=== PATIENT | female | born 1945 | race Caucasian/White ===

== ENCOUNTER 2017-10-09 13:30 | Outpatient (RCR) | payer MEDICARE, SELFPAY ==
--- NOTE | 2017-07-02 09:56 | HP.PTEVAL_ITS ---
Patient's Visit Information ELIAN ALVARADO is a 71 year old F referred to Physical Therapy by JAZMIN Mike with a diagnosis of Low Back Pain. Date of Evaluation: 07/02/17 Physical Therapist: Kortney Ching - Visit Plan Frequency: 2x /Week Duration: 4 Weeks Plan: Aquatic Therapy- focus on core s/s and LE s/s- GENTLE - Subjective Subjective: Patient reports back surgery Jul 17- had therapy- felt amazing by the end. Feels that she over did it on her HEP (hip abd with band)- this happened in Oct- she has been miserable since. She is in pain management and feels its the SI joint- has had a series of 2 injections- had relief for 11 days with the first shot and no relief from the second shot. Goes back Jul 17 and they will do an injection under the SI joint. quality of life is shit. Has say on ice for the good part of the year. Agg: standing, walking to a certain point, can't walk fast, sitting for to long (more than an hour). Eases : go to bed- laying down but be careful when turning. most comfortable on the left side. Sleep: disturbed but not very often. Pain is located in the left buttocks. Radiates down the leg to the ankle but now it does not radiate secondary to the injection. Describes pain as sharp/shooting. Numbness across the low back. Has a lengthy history of back issues- 2 back surgeries- fusion with rods-Jul 17- done by Dr. Williams Douglas. She has alway been active but not very much anymore due to pain. Wants to get back to all normal stuff. PMHx: 2 knee replacements, shoulder replacement. Meds: all in her chart. Has had recent x-rays from pain management. - Objective Posture: FH, RS, Increased kyphosis. Gait: guarded- slow and decreased trunk movements- decreased stance on left LE. HR/TR: able but required UE A. Balance : unable to SLS without UE A. ROM: lumbar: WNL but guarded, Hip/Knee/Ankle: WNL. Strength: Ankle: 5/5, Knee 5/5, Hip: 4/5 throughout with pain. Palpation : tender along greater troch, piriformis, SI joint line on the left - Goals Goal 1:: Patient will be I with HEP and progression Goal Time Frame: 4-6 Weeks Goal 2:: Patient will demo 4+/5 strength in LE where defcit to ease ADL's. Goal Time Frame: 4-6 Weeks Goal 3:: Patient will ambulate with a normalized gait pattern Goal Time Frame: 4-6 Weeks Goal 4:: Patient will maintain proper posture t/o tx session to demo increase core s/s. Goal Time Frame: 4-6 Weeks - Rehabilitation Potential Physical Therapy Diagnosis: Patient presents with hypomobility- she has decreased strength and endurance leading to increased pain with ADL's. Rehabilitation Potential: Fair - Anticipated Interventions Patient/Client Instruction: Educate patient on: Benefits of Fitness Program For the Purpose of:: To improve ability to perform ADL's Therapeutic Exercise to Include: Strength training, Endurance training, Balance training, Agility training, Body mechanics, Postural training, Flexibilty training, Gait and locomotor training, In an aquatic setting, Dynamic Lumbar Stabilization, Scapular Strength/Stabilization For the Purpose of:: To improve muscle performance and motor function Thank you for the opportunity to evaluate your patient. For Medicare and Medicare HMO plans, please review the plan of care and approve it. It will need to be FAXED BACK to us at [phone] for Medicare purposes. Please let me know if there are questions or concerns regarding this plan of care. Physician Signature: Date:
--- NOTE | 2017-07-31 14:45 | HP.PTREVAL_ITS ---
Margarita Strickland, MALOU-C, It has been my pleasure to treat ELIAN ALVARADO over the last 8 visits for Low Back Pain. Please see the progress note below for an update on the physical therapy plan of care! Subjective: Two weeks ago she had a sciatic nerve injection and feels a lot better. Every once in awhile she gets a zing in her low back. Sleeping better and moving better. Has been really concenrating on posture and core. Feels that she is 50% on better on her low back and 100% better on her hip. No hip pain. Worst: 5/10 when working in the kitchen. Objective/Function: Posture: improved- correct but starts to diminish as she tires. Gait: slightly antalgic due to mild forward head. ROM: WFL. Strength: Ankle: 5/5, Knee: 4+/5, Hip: 4/5 throughout, Core: fair Plan Plan: Cont with POC 2x a week for 4 weeks with land progression Goals Goal 1:: Patient will be I with HEP and progression Goal Time Frame: 4-6 Weeks Goal Progress: Progressing Goal 2:: Patient will demo 4+/5 strength in LE where defcit to ease ADL's. Goal Time Frame: 4-6 Weeks Goal Progress: Progressing Goal 3:: Patient will ambulate with a normalized gait pattern Goal Time Frame: 4-6 Weeks Goal Progress: Progressing Goal 4:: Patient will maintain proper posture t/o tx session to demo increase core s/s. Goal Time Frame: 4-6 Weeks Goal Progress: Progressing Anticipated Interventions Patient/Client Instruction: Educate patient on: Benefits of Fitness Program For the Purpose of:: To improve ability to perform ADL's Therapeutic Exercise to Include: Strength training, Endurance training, Balance training, Agility training, Body mechanics, Postural training, Flexibilty training, Gait and locomotor training, In an aquatic setting, Dynamic Lumbar Stabilization, Scapular Strength/Stabilization For the Purpose of:: To improve muscle performance and motor function Please do not hesitate to contact me at [phone] by phone or Fax: if you have questions or concerns regarding this new plan of care! Sincerely, Kortney Ching
--- NOTE | 2017-09-11 14:28 | HP.PTREVAL_ITS ---
Margarita Strickland, MALOU-C, It has been my pleasure to treat ELIAN ALVARADO over the last 16 visits for Low Back Pain. Please see the progress note below for an update on the physical therapy plan of care! Subjective: Patient reports that she is doing really good. Her low back is better because she has slowed down and is using her core more. Feels like she would like to do a few more visits since she took a dive off the stairs. Objective/Function: Posture: FH, RS. Gait: no deviation noted. Stairs: asc/ desc 8 recip with 1 HR- poor control with descent. Balance: unable to SLS but can weight shift. ROM: WFL. Strength: 4+/5 throughout LEs Core: fair Plan Plan: Continue 2x a week for 4 weeks Goals Goal 1:: Patient will be I with HEP and progression Goal Time Frame: 4-6 Weeks Goal Progress: Progressing Goal 2:: Patient will demo 4+/5 strength in LE where defcit to ease ADL's. Goal Time Frame: 4-6 Weeks Goal Progress: Progressing Goal 3:: Patient will ambulate with a normalized gait pattern Goal Time Frame: 4-6 Weeks Goal Progress: Progressing Goal 4:: Patient will maintain proper posture t/o tx session to demo increase core s/s. Goal Time Frame: 4-6 Weeks Goal Progress: Progressing Anticipated Interventions Patient/Client Instruction: Educate patient on: Benefits of Fitness Program For the Purpose of:: To improve ability to perform ADL's Therapeutic Exercise to Include: Strength training, Endurance training, Balance training, Agility training, Body mechanics, Postural training, Flexibilty training, Gait and locomotor training, In an aquatic setting, Dynamic Lumbar Stabilization, Scapular Strength/Stabilization For the Purpose of:: To improve muscle performance and motor function Please do not hesitate to contact me at [phone] by phone or Fax: if you have questions or concerns regarding this new plan of care! Sincerely, Kortney Ching
--- NOTE | 2017-10-09 13:53 | HP.PTDCSUM_ITS ---
HP - PT D/C Summary It has been my pleasure to treat ELIAN ALVARADO under orders from JAZMIN Mike, for the diagnosis of Low Back Pain for a total of 24 visit(s). Discharge Date: Please see the following information for a summary of their discharge status. - Subjective Subjective: Patient reports that she is doing pretty good. She has a twinge every now and then but its much better. Is ready to be I with HEP - Pain LBP Pain Intensity (Out of 10): 0 - Overall Improvement % Improvement: 50 - Objective Objective/Function: Posture: good throughout. Gait: no deviation noted. Stairs : asc/desc 8 recip. Strength: 4+/5 throughout - Goals Goal 1:: Patient will be I with HEP and progression Goal Progress: Goal Met Goal 2:: Patient will demo 4+/5 strength in LE where defcit to ease ADL's. Goal Progress: Goal Met Goal 3:: Patient will ambulate with a normalized gait pattern Goal Progress: Goal Met Goal 4:: Patient will maintain proper posture t/o tx session to demo increase core s/s. Goal Progress: Goal Met - Plan Plan: Discharge to I HEP - D/C Information If there are questions or concerns regarding this patient's physical therapy, please feel free to call me at [phone]. Thank you for the referral of this patient. Sincerely, Kortney Ching
== END 2017-10-09 14:07 | disposition home or self-care (01) ==
LOC: PT 13:30
PROVIDERS: Family Provider Student in an Organized Health Care Education/Training Program; PCP Student in an Organized Health Care Education/Training Program; Visit Provider Nurse Practitioner Family
DX: M53.3 Sacrococcygeal disorders, not elsewhere classified (principal); M25.9 Joint disorder, unspecified; M48.061 Spinal stenosis, lumbar region without neurogenic claudication; M51.36 Other intervertebral disc degeneration, lumbar region; M54.16 Radiculopathy, lumbar region
CPT/HCPCS: 97110; 97113; 97162; 97530; G8978; G8979

== ENCOUNTER 2018-03-10 11:43 | Observation (INO) | payer MEDICARE, SELFPAY ==
[2018-03-10] VITALS (9 sets, daily range): BP systolic 116–160; BP diastolic 76–98; PULSE 72–93; RESP 13–19; TEMP 36.6–37.3; O2SAT 95–99; BMI 22.8; BMI 24.3
--- NOTE | 2018-03-10 12:02 | EKG12_ITS ---
Test Reason : SOB Blood Pressure : / mmHG Vent. Rate : 079 BPM Atrial Rate : 079 BPM P-R Int : 138 ms QRS Dur : 078 ms QT Int : 374 ms P-R-T Axes : 056 009 057 degrees QTc Int : 428 ms Sinus rhythm with Premature supraventricular complexes Otherwise normal ECG Confirmed by DAKOTAH CARBAJAL, KI ([id number]), industrial editor JOSÉ MANUEL JOHNSON ([id number]) on 03/13/2018 2:50:29 PM Referred By: MO Confirmed By:KI CLAIRE MD
--- NOTE | 2018-03-10 12:02 | RAD_ITS ---
STUDY: X-RAY CHEST REASON FOR EXAM: Female, 72 years old. One-month history of shortness of breath and fatigue. TECHNIQUE: Single AP portable view of the chest. COMPARISON: None. FINDINGS: EKG electrodes are seen. Hyperinflation. The lungs are clear. There is no demonstrated pleural abnormality. Normal size heart. Normal mediastinum and constantine. Normal visualized pulmonary arteries. There is atherosclerotic tortuosity of the aortic arch and descending thoracic aorta. Prior fusion in the lower thoracic upper lumbar spine. Healed bilateral rib fractures. 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 There is no demonstrated abnormality of the visualized soft tissue structures of the upper abdomen. RAD/Chest 1 View (Portable) IMPRESSION: Hyperinflation. The lungs are clear. Electronically Signed: Michael Santiago MD at 12:41 EDT Tel [phone], Service support ,
[2018-03-10 12:26] LABS: Absolute Lymphocyte Count 1.26 X10^3/ul (0.83-4.51); Absolute Neutrophil Count 4.9 X10^3/uL (2.0-7.7); Basophil# 0.02 X10^3/uL; Basophil% 0.3 % (0-1); Eosinophil# 0.13 X10^3/uL; Eosinophils% 1.8 % (0-5); Hematocrit 43.6 % (37-47); Hemoglobin 14.4 g/dl (12.0-15.0); Lymphocyte # 1.26 X10^3/ul (4.0); Lymphocyte % 17.9 % (19-41); Mean Corpuscular Hgb 32.4 pg (27.0-32.0); Mean Corpuscular Volume 98.2 fL (81-99); Mean Platelet Vol. 11.3 fl (6.2-12.0); Monocyte# 0.76 X10^3/uL; Monocyte% 10.8 % (0-10); Neutrophil # 4.87 X10^3/uL (2.7-7.7); Neutrophil % 69.2 % (47-70); Platelet Count 238 K/mm3 (150-450); RBC Distribution Width CV 14.4 % (11.6-14.6); RBC Distribution Width SD 52.1 fl (35.1-43.9); Red Blood Count 4.44 M/mm3 (4.2-5.4)
[2018-03-10 12:27] LABS: POSITIVE COUNT NO; POSITIVE DIFFERENTIAL NO; POSITIVE MORPHOLOGY NO
[2018-03-10 12:29] LABS: Anion Gap 7 (5-15); BUN 22 mg/dL (7-18); BUN/Creat Ratio 21.6 RATIO (10-20); Calcium,Total 9.5 mg/dL (8.5-10.1); Chloride 109 mmol/L (98-107); Creatinine, Serum 1.02 mg/dL (0.55-1.02); EST Glomerular Filtration Rate 56 mL/min (>60); Est Glom Filt Rate - Afr Amer 68 mL/min (>60); Estimated Creatinine Clearance 38.27 ml/min; Glucose 110 mg/dL (74-106); Potassium 4.3 mmol/L (3.5-5.1); Sodium Level 140 mmol/L (136-145)
[2018-03-10 12:30] LABS: D-Dimer Quantitative (DVT/PE) 1.34 FEU/ug/m (0.27-0.49)
--- NOTE | 2018-03-10 12:39 | CT_ITS ---
STUDY: CTA CHEST REASON FOR EXAM: Female, 72 years old. One month history of increasing shortness of breath and fatigue. RADIATION DOSAGE (If Supplied By Facility): CTDIvol = ( 6.71 ) mGy, DLP = ( 173.30 ) mGycm TECHNIQUE: The examination was performed with the intravenous administration of 75CC ml of Isovue 370 contrast material. Post-processing of the angiographic images was performed, with multiplanar reformation and 3D reconstruction. Individualized dose optimization techniques were used for this CT. COMPARISON: None. FINDINGS: Normal enhancement of the main pulmonary artery and right and left pulmonary arteries. Normal enhancement of the bilateral peripheral pulmonary arteries. There is no demonstrated pulmonary embolism. There is atherosclerotic calcification of the aortic arch with tortuosity. There is no demonstrated aortic dissection. Normal heart and pericardium. Normal mediastinum. Normal hilar regions. Normal visualized trachea and bronchi. Hyperinflation. Calcified granuloma in the posteromedial aspect of the right upper lobe. Focal pleural thickening along the lateral aspect of the right upper lobe. Normal pleura. Normal chest wall structures. There are degenerative changes of thoracic spine. Normal visualized upper abdomen. CT/CTA Chest W/WO Contrast IMPRESSION: No acute abnormality is seen. Electronically Signed: Michael Santiago MD at 13:13 EDT Tel [phone], Service support ,
[2018-03-10] MEDS: 0.9% Normal Saline 1,000 ML 150 ML IV (12:44)
[2018-03-10 12:49] LABS: BNP,B-Type NATRIURETIC PEPTIDE 74.6 pg/mL (0-100)
--- NOTE | 2018-03-10 13:24 | ED.VISSUMM ---
- ER Visit Summary Date of Service: 03/10/18 Chief Complaint: [Shortness of breath] History of Present Illness: The patient is a 72 F [presents to the emergency department with complaint of shortness of breath over the last month. Patient has had a mild cough with occasional phlegm production. Patient complains of a lot of fatigue. Patient complains of exertional dyspnea. Patient denies any chest pain. Patient did travel recently to [place] last week but she had symptoms prior to that. Patient denies any fevers. Patient denies urinary symptoms.] Physical Examination: [HEENT-PERRLA, EOMI. Cranial nerves II through XII grossly intact. TMs clear. Mucous membranes moist. No adenopathy. Cardiovascular-regular rate and rhythm without murmur or ectopy Lungs-clear to auscultation, chest wall stable without crepitus or subcu emphysema Abdomen-normoactive bowel sounds, soft, nontender, no rebound or rigidity, no peritoneal signs. Extremities-intact ?4, normal range of motion, normal pulses, atraumatic] Test Results: [EKG obtained on arrival shows sinus rhythm with a ventricular rate of 79 bpm with occasional PACs. CBC with differential was normal. Chemistries unremarkable. Troponin was less than 0.015. BNP was normal at 74. D-dimer was 1.34. Chest x-ray showed some hyperinflation otherwise nothing acute. CT of the chest showed no evidence of PE or dissection. Emergency Department Course and Treatment: [Patient was given aspirin] Treatment Plan: [Admit for further workup and evaluation of her exertional dyspnea] Disposition: [Admit] Impression: [Exertional dyspnea-rule out acute coronary syndrome] This note was generated with fflick dictation software. It may contain incorrect words, spelling, and punctuation that were not noted in review of the chart prior to signing ED Disposition - Plan for ED Patient: Chief Complaint: Shortness of Breath Referrals: Jhonny Russo DO [Primary Care Provider] -
[2018-03-10] MEDS: Aspirin 81 MG TAB.CHEW 324 MG PO (13:27)
--- NOTE | 2018-03-10 14:35 | HP.PCM_ITS ---
Problem List (1) Dyspnea Status: Acute (2) Depression Status: Chronic (3) Arthritis Status: Chronic (4) GERD (gastroesophageal reflux disease) Status: Chronic History of Present Illness Date of Admission: 03/10/18 Chief Complaint: dyspnea The patient is a 72 year old F with a hx of arthritis, depression, and GERD, who presents to the hospital with dyspnea that has been present and worsening for about 1 month. She first noticed this with activity only particularly noting that stairs were difficult. Today she presented because it is now present at rest. She has not had any chest pain or heaviness, but has noticed her acid reflux has been more frequent this past week with increased burning, but is not associated with eating. No N/V. No palpitations, dizziness, LH, leg edema. In the ER her workup has been unremarkable with negative troponin, negative BNP, unremarkable BMP and CBC, negative CXR, EKG with occasional PACs. She did have an elevated D dimer but CTA chest was negative. BP is mildly elevated at 160/98. [] Past Medical History Past Medical History (Chronic Problems): Chronic Problems (Last Reviewed 02/07/18 @ 15:15 by Stephanie Evangelista) Depression (Chronic) Arthritis (Chronic) GERD (gastroesophageal reflux disease) (Chronic) Allergies codeine Allergy (Verified 03/10/18 11:44) Swelling Home Medications: Ambulatory Orders Medication Instructions Recorded Calcium (Elemental) [Os-Cornel 500] 500 mg PO BIDCM 12/28/13 Nabumetone [Relafen] 750 mg PO BID 12/28/13 Omeprazole [Prilosec] 20 mg PO QHS 12/28/13 buPROPion SR [Wellbutrin Sr] 150 mg PO BID 12/28/13 traZODone [Desyrel] 50 mg PO QHS 12/28/13 Acetaminophen [Tylenol Extra 1,000 mg PO PRN PRN 03/10/18 Strength] Alendronate Sodium [Alendronate 70 mg PO QWEEK 03/10/18 Sodium] Sertraline HCl [Zoloft] 50 mg PO QHS 03/10/18 busPIRone [Buspar] 15 mg PO BID 03/10/18 Surgical History: Surgical History (Last Reviewed 02/07/18 @ 15:15 by Stephanie Evangelista) Hx of spinal surgery Z98.890 Surgical History: rotator cuff repair, total knee arthroplasty Lives: Spouse/ Significant Other Smoking Status: Never smoker Tobacco Use: Non-smoker Alcohol: None Drugs: None - *Family History Maternal History Items: Stroke Paternal History Items: Heart Disease - [place] at 64 Review of Systems Constitutional: Denies: Chills, Fever, Weight Change HEENT: Denies: Head Aches, Sinus Congestion, Sinus Drainage Cardiovascular: Denies: Chest Pain, Chest Pressure, Chest Tightness, Palpitations Respiratory: Reports: Shortness of Breath, Shortness of breath at rest, Shortness of breath upon exertion. Denies: Cough, Sputum production Gastrointestinal: Reports: - - burning/heartburn. Denies: Abdominal Pain, Nausea, Vomiting Genitourinary: Denies: Dysuria Musculoskeletal: Denies: Joint Pain, Joint Tenderness Skin: Denies: Rash, Wounds Neurological: Denies: Numbness, Tingling, Focal weakness Psychiatric: Denies: Anxiety, Depression, Homicidal Ideations, Suicidal Ideations Hematologic/ Lymphatic: Denies: Easy Bruising, Easy Bleeding VTE Information - Inpt Only VTE Present on Admission: No VTE Mechan Device Prophylaxis: SCD's, None VTE Pharm Prophylaxis ordered?: Yes Patient Problems: Active and Suspected Problems (Last Reviewed 02/07/18 @ 15:15 by Stephanie Evangelista ) Dyspnea (Acute) - Physical Exam General: Alert, Oriented x3, Cooperative HEENT: Atraumatic, PERRLA, EOMI, Normocephalic Neck: Supple, No JVD, Negative Carotid Bruits Lungs: Clear to auscultation, Normal air movement Cardiovascular: Regular rate, No murmurs Abdomen: Bowel Sounds Present, Soft, Non Tender Extremities: No edema, Capillary Refill Less than 3 Seconds, - - negative dax/ rosa isela Skin: No rashes, No breakdown Musculoskeletal: No Tenderness to Palpation of Joints or Extremities Neurological: Cranial nerves II-XII grossly intact Psych/Mental Status: Appropriate, Anxious Vital Signs Temp Pulse Resp BP Pulse Ox 98.4 F 81 15 160/98 H 99 03/10/18 13:36 03/10/18 14:21 03/10/18 14:21 03/10/18 14:21 03/10/18 14:21 Assessment/Plan All Active Problems (Last Reviewed 02/07/18 @ 15:15 by Stephanie Evangelista) Dyspnea (Acute) Irritant contact dermatitis due to plants, except food (Acute) 1. Dyspnea on exertion - worsening x 1 month. Concern for cardiac etiology. Cycle troponin, repeat EKG in AM, dobutamine stress in AM. Monitor BP and start agent if needed. Continue aspirin. EKG, CTA chest, CXR negative. Tropx1 neg. BNP neg. 2. Arthritis - hold nsaids. 3. GERD - continue PPI 4. Anxiety/Depression - continue home meds. DVT ppx: lovenox This patient was seen by Finn Zepeda PA-C under the supervision of Doctor Luna.
[2018-03-10] MEDS: Calcium (Elemental) 500 MG Tablet PO (16:45)
[2018-03-10] MEDS: Pantoprazole Sodium 20 MG Tablet PO (21:42)
[2018-03-10] MEDS: Sertraline 50 MG Tablet PO (21:42)
[2018-03-10] MEDS: busPIRone 15 MG TABLET PO (21:42)
[2018-03-10] MEDS: traZODone 50 MG Tablet PO (21:42)
[2018-03-10] MEDS: buPROPion (SR) 150 MG Tablet.SA PO (21:42)
[2018-03-11 03:29] VITALS: PULSE 69
[2018-03-11 03:44] VITALS: BP 138/66; PULSE 71; RESP 16; TEMP 36.6; O2SAT 98
[2018-03-11] MEDS: Aspirin 81 MG TAB.CHEW PO (05:37)
[2018-03-11 05:43] LABS: White Blood Count 5.2 K/mm3 (4.4-11.0)
[2018-03-11 05:44] LABS: Hematocrit 42.2 % (37-47); Hemoglobin 13.9 g/dl (12.0-15.0); Mean Corp Hgb Conc 32.9 g/gl (32-36); Mean Corpuscular Hgb 32.5 pg (27.0-32.0); Mean Corpuscular Volume 98.6 fL (81-99); Mean Platelet Vol. 10.9 fl (6.2-12.0); Platelet Count 204 K/mm3 (150-450); RBC Distribution Width CV 14.4 % (11.6-14.6); RBC Distribution Width SD 52.6 fl (35.1-43.9); Red Blood Count 4.28 M/mm3 (4.2-5.4); Scan Indicated on CBC? Y/N NO
[2018-03-11 05:54] LABS: Anion Gap 6 (5-15); BUN 21 mg/dL (7-18); BUN/Creat Ratio 22.8 RATIO (10-20); Calcium,Total 8.6 mg/dL (8.5-10.1); Chloride 110 mmol/L (98-107); Creatinine, Serum 0.92 mg/dL (0.55-1.02); EST Glomerular Filtration Rate 63 mL/min (>60); Est Glom Filt Rate - Afr Amer 77 mL/min (>60); Estimated Creatinine Clearance 42.43 ml/min; Glucose 98 mg/dL (74-106); Potassium 4.2 mmol/L (3.5-5.1); Sodium Level 143 mmol/L (136-145)
--- NOTE | 2018-03-11 05:55 | EKG12_ITS ---
Test Reason : AM EKG Blood Pressure : / mmHG Vent. Rate : 064 BPM Atrial Rate : 064 BPM P-R Int : 164 ms QRS Dur : 082 ms QT Int : 414 ms P-R-T Axes : 051 019 068 degrees QTc Int : 427 ms Normal sinus rhythm Low voltage QRS Borderline ECG When compared with ECG of 10-MAR-2018 11:51, MANUAL COMPARISON REQUIRED, DATA IS UNCONFIRMED Confirmed by DAKOTAH CARBAJAL, KI ([id number]), photo editor JOSÉ MANUEL JOHNSON ([id number]) on 03/18/2018 1:14:34 PM Referred By: DR SAEED Confirmed By:KI CLAIRE MD
[2018-03-11 07:27] LABS: International Normalized Ratio 1.1; Prothrombin Time (Protime)PT. 13.7 SECONDS (11.7-14.9)
--- NOTE | 2018-03-11 09:25 | STRESSREP_ITS ---
Stress Test Report Date: 03/11/2018 Procedure: Pharmacologic stress nuclear imaging study Indications: Chest pain Consent: Per the patient Procedure: The patient underwent pharmacologic (Regadenoson) evaluation with a peak heart rate of 101 beats per minute (69 predicted maximal heart rate) and a peak blood pressure of 124/78 mmHg. The baseline ECG demonstrated normal sinus rhythm. The peak pharmacologic ECG demonstrated no obvious ECG changes. There were no cardiac dysrhythmias pretest, during pharmacologic infusion, or recovery. There was no complaint of chest discomfort during pharmacologic infusion or recovery. The examination was discontinued secondary to completion of protocol. Impression: 1. Pharmacologic (Regadenoson) evaluation 2. Peak pharmacologic ECG with no obvious ECG changes. 3. There were no cardiac dysrhythmias pretest, during pharmacologic infusion, or recovery 4. Nuclear images pending Myocardial perfusion imaging study: Technique: The patient was injected with 11.2 millicuries of technetium 99m Cardiolite and subsequently rest SPECT Cardiolite nuclear imaging was obtained in the horizontal long, vertical long, and short axis views. The patient underwent pharmacologic (Regadenoson) evaluation with a peak heart rate of 101 beats per minute (69 % percent predicted maximal heart rate) and a peak blood pressure of 124/78 mmHg. The patient was injected with 32.9 millicuries of technetium 99m Cardiolite and subsequently stress SPECT Cardiolite nuclear imaging was obtained in the horizontal long, vertical long, and short axis views. A gated Cardiolite study at peak stress was obtained. Interpretation: Rest and stress SPECT Cardiolite nuclear imaging status post realignment, normalization, and attenuation correction demonstrate relative uniform tracer uptake and myocardial perfusion appearing within normal limits. There is end systolic thickening and brightening. The gated Cardiolite study demonstrates myocardial thickening and inward wall motion. The reported LVEF is 89 %. Impression: 1. Rest and stress SPECT Cardiolite nuclear imaging demonstrate relative uniform tracer uptake and myocardial perfusion appearing within normal limits. 2. The gated Cardiolite study reports an LVEF of 89 %. This note was generated with [employer] software. It may contain incorrect words, spelling, and punctuation that were not noted in checking the note before signing.
[2018-03-11 09:50] VITALS: BP 122/97; PULSE 75; RESP 18; TEMP 36.1; O2SAT 98
[2018-03-11] MEDS: buPROPion (SR) 150 MG Tablet.SA PO (09:51)
[2018-03-11] MEDS: Calcium (Elemental) 500 MG Tablet PO (09:52)
[2018-03-11] MEDS: busPIRone 15 MG TABLET PO (09:52)
[2018-03-11 09:58] VITALS: PULSE 72
[2018-03-11 11:16] VITALS: PULSE 80
--- NOTE | 2018-03-11 11:31 | ECHOD_ITS ---
Reason For Study: exertional SOB Procedure This was a 2D Doppler, Color Flow transthoracic echocardiogram. The study was technically difficult. Due to respiratory interference and coughing. Exam performed portable in patient room. Left Ventricle Normal LV size. Left ventricular systolic function is normal. The estimated ejection fraction is 65 %. Normal diastology for age. No regional wall motion abnormalities noted. Right Ventricle Normal RV size. Normal systolic function. Atria Normal left atrium. Normal right atrium. No doppler evidence for ASD. Mitral Valve There is mild mitral annular calcification. Normal mitral valve. Trivial mitral valve insufficiency. Tricuspid Valve Normal tricuspid valve. Mild tricuspid valve insufficiency. Right ventricular systolic pressure estimated to be 29 mmHg. Aortic Valve Trisinus/trileaflet aortic valve. Normal aortic valve. Mild (1+) aortic valve insufficiency. Pulmonic Valve The pulmonic valve is not well visualized. Great Vessels Normal sized aortic root. Pericardium/Pleural No pericardial effusion. MMode/2D Measurements & Calculations LVIDd: 3.8 cm IVSd: 1.0 cm Ao root diam: 3.3 cm LVIDs: 2.6 cm LVPWd: 1.0 cm LA dimension: 3.9 cm RVDd: 2.1 cm FS: 32.3 % LAV(MOD-bp): 35.1 ml LA A4 area: 13.6 cm2 RA A4 area: 10.0 cm2 LAV(MOD-bp) Indexed: 21.8 ml/m2 LAV(MOD-sp2): 37.8 ml LAV(MOD-sp4): 32.8 ml Doppler Measurements & Calculations MV E max earnest: 73.9 cm/sec Lat Peak E' Earnest: 11.5 cm/sec Med Peak E' Earnest: 8.1 cm/sec MV A max earnest: 87.8 cm/sec E/E' lat: 6.4 E/E' med: 9.2 MV E/A: 0.84 Ao V2 max: 132.2 cm/sec AI max earnest: 312.1 cm/sec LV V1 max: 111.2 cm/sec Ao max P.0 mmHg AI max P.0 mmHg LV V1 max P.9 mmHg AI dec slope: 163.6 cm/sec2 AI P1/2t: 558.6 msec PA V2 max: 71.7 cm/sec TR max earnest: 254.7 cm/sec TR max P.0 mmHg Interpretation Summary The study was technically difficult. Left ventricular systolic function is normal. The estimated ejection fraction is 65 %. There is mild mitral annular calcification. Trivial mitral valve insufficiency. Mild tricuspid valve insufficiency. Mild (1+) aortic valve insufficiency. Right ventricular systolic pressure estimated to be 29 mmHg. Ordering Physician: Shirin Dhaliwal Referring Physician: Jhonny Guaman Performed By: Sonia Malone RDCS, RVT
--- NOTE | 2018-03-11 11:32 | PCM.PN.HOSP ---
Patient Problems: Active and Suspected Problems (Last Reviewed 02/07/18 @ 15:15 by Stephanie Evangelista) Dyspnea (Acute) Subjective: Patient is a 72-year-old female with a history of osteoarthritis, depression and GERD. She was admitted with a complaint of worsening exertional dyspnea for about a months duration. It subsequently became present at rest. She had no associated chest pain or heaviness but noted that her acid reflux had been getting worse. She denied any palpitations, dizziness or edema of the lower extremities. Troponins and BNP were negative and other labs were negative as well. Chest x-ray was negative and EKG showed only periodic PACs. D-dimer was elevated but CT PE done was negative. She was admitted to be worked up for exertional shortness of breath. Patient seen and examined this morning. She went for stress test earlier this morning which was negative. Shortness of breath is currently not present patient has not tried walking around today and so does not know whether it is still present on exertion. She denies any cough or chest pain, any abdominal pain, any orthopnea, any diarrhea vomiting or lower extremity swelling. She denies any history of smoking and hasnt had such shortness of breath in the past before. He of systems otherwise negative. Vitals/I&O's: Vital Signs Temp Pulse Resp BP Pulse Ox 96.9 F L 80 18 122/97 H 98 03/11/18 09:50 03/11/18 11:16 03/11/18 09:50 03/11/18 09:50 03/11/18 09:50 Oxygen Delivery Method Room Air Weight: 132 lb 15.02 oz Body Mass Index (BMI) 24.3 Intake and Output for Last 24 Hours 03/09/18 03/10/18 03/11/18 23:59 23:59 23:59 Intake Total 300 / 300 Balance 300 / 300 General: Alert, Oriented x3, Cooperative, No apparent distress HEENT: Atraumatic, PERRLA, EOMI, Normocephalic Oral: Moist Mucosa Neck: Supple, No JVD, Negative Carotid Bruits Lungs: Clear to auscultation, Normal air movement, No rhonchi, No wheeze, No rales Cardiovascular: Regular rate, Regular Rhythm, Normal S1, Normal S2, No murmurs Abdomen: Bowel Sounds Present, Soft, Non Tender Extremities: No clubbing, No cyanosis, No edema, Capillary Refill Less than 3 Seconds Skin: No rashes, No breakdown Musculoskeletal: No Tenderness to Palpation of Joints or Extremities Lymphatic: No Cervical, Supraclavicular, or Inguinal Adenopathy Neurological: Cranial nerves II-XII grossly intact Psych/Mental Status: Normal Affect, Appropriate, Alert and oriented to time, place, person, mood and affect Laboratory Results 03/10/18 15:10: Troponin I < 0.015 03/10/18 17:20: Troponin I < 0.015 03/11/18 05:00: WBC 5.2, RBC 4.28, Hgb 13.9, Hct 42.2, MCV 98.6, MCH 32.5 H, MCHC 32.9, RDW 14.4, RDW Differential 52.6 H, Plt Count 204, MPV 10.9 03/11/18 05:25: PT 13.7, INR 1.1, APTT 32.0 03/11/18 05:25: Sodium 143, Potassium 4.2, Chloride 110 H, Carbon Dioxide 27.0, Anion Gap 6, BUN 21 H, Creatinine 0.92, Estim Creat Clear Calc 42.43, Est GFR (MDRD) Af Amer 77, Est GFR (MDRD) Non-Af 63, BUN/Creatinine Ratio 22.8 H, Glucose 98, Calcium 8.6 Current Medications Acetaminophen (Tylenol) 650 mg PO Q6H PRN PRN PRN Reason: PAIN Aspirin (Aspirin, Baby) 81 mg PO DAILY@0800 [facility] Last Admin: 03/11/18 05:37 Dose: 81 mg Bupropion HCl (Wellbutrin Sr (150mg Tablets)) 150 mg PO BID [facility] Last Admin: 03/11/18 09:51 Dose: 150 mg Buspirone HCl (Buspar) 15 mg PO BID [facility] Last Admin: 03/11/18 09:52 Dose: 15 mg Calcium Carbonate ([facility]el [facility]) [facility] Last Admin: 03/11/18 09:52 Dose: 500 mg Enoxaparin Sodium (Lovenox) 40 mg SC DAILY@0600 [facility] Last Admin: 03/11/18 07:19 Dose: Not Given Pantoprazole Sodium (Protonix) 20 mg PO QHS [facility] Last Admin: 03/10/18 21:42 Dose: 20 mg Sertraline HCl (Zoloft) 50 mg PO QHS [facility] Last Admin: 03/10/18 21:42 Dose: 50 mg Sodium Chloride () 5 - 30 ml IV UD PRN PRN Reason: SALINE FLUSH Trazodone HCl (Desyrel) 50 mg PO QHS [facility] Last Admin: 03/10/18 21:42 Dose: 50 mg Medical Necessity - Tobacco Use Smoking Status: Never smoker Tobacco Use: Non-smoker Assessment/Plan All Active Problems (Last Reviewed 02/07/18 @ 15:15 by Stephanie Evangelista) Dyspnea (Acute) Irritant contact dermatitis due to plants, except food (Acute) 72-year-old female with a history of arthritis, GERD and depression presenting with a month history of exertional dyspnea which was nos present at rest. 1. Shortness of breath, to rule out cardiac pathology SOB has resolved this morning. Vitals stable. EKG, troponins, BNP were negative. Dobutamine stress test ws negative today will get 2D echo to evaluate- patient subsequently wanted to be discharged home, so will have 2D echo on outpatient basis. to ambulate and assess for dyspnea and assess pulse ox. 2. Osteoarthritis; stable. Due to follow up with her orthopedic surgeon for spine shots. 3.GERD: stable. on PPI 4. Anxiety/depression: on bupriopion. DVT prophylaxis: lovenox Disposition: With ambulation patient's saturation was 98% on room air she did not get short of breath. Echo was ordered and is at 1 PM was yet to be done. However patient wanted to go home. Will discharge patient, to have echo on outpatient basis. This note was generated with [employer] dictation software. It may contain incorrect words, spelling, and punctuation that were not noted in checking the note before signing. Code Visit OBSV E&M: 26608 Subsequent observation care L2
--- NOTE | 2018-03-11 11:38 | PN_ITS ---
Patient Problems: Active and Suspected Problems (Last Reviewed 02/07/18 @ 15:15 by Stephanie Evangelista ) Dyspnea (Acute) Subjective: Patient is a 72-year-old female with a history of osteoarthritis, depression and GERD. She was admitted with a complaint of worsening exertional dyspnea for about a months duration. It subsequently became present at rest. She had no associated chest pain or heaviness but noted that her acid reflux had been getting worse. She denied any palpitations, dizziness or edema of the lower extremities. Troponins and BNP were negative and other labs were negative as well. Chest x-ray was negative and EKG showed only periodic PACs. D-dimer was elevated but CT PE done was negative. She was admitted to be worked up for exertional shortness of breath. Patient seen and examined this morning. She went for stress test earlier this morning which was negative. Shortness of breath is currently not present patient has not tried walking around today and so does not know whether it is still present on exertion. She denies any cough or chest pain, any abdominal pain, any orthopnea, any diarrhea vomiting or lower extremity swelling. She denies any history of smoking and hasnt had such shortness of breath in the past before. He of systems otherwise negative. Vitals/I&O's: Vital Signs Temp Pulse Resp BP Pulse Ox 96.9 F L 80 18 122/97 H 98 03/11/18 09:50 03/11/18 11:16 03/11/18 09:50 03/11/18 09:50 03/11/18 09:50 Oxygen Delivery Method Room Air Weight: 132 lb 15.02 oz Body Mass Index (BMI) 24.3 Intake and Output for Last 24 Hours 03/09/18 03/10/18 03/11/18 23:59 23:59 23:59 Intake Total 300 / 300 Balance 300 / 300 General: Alert, Oriented x3, Cooperative, No apparent distress HEENT: Atraumatic, PERRLA, EOMI, Normocephalic Oral: Moist Mucosa Neck: Supple, No JVD, Negative Carotid Bruits Lungs: Clear to auscultation, Normal air movement, No rhonchi, No wheeze, No rales Cardiovascular: Regular rate, Regular Rhythm, Normal S1, Normal S2, No murmurs Abdomen: Bowel Sounds Present, Soft, Non Tender Extremities: No clubbing, No cyanosis, No edema, Capillary Refill Less than 3 Seconds Skin: No rashes, No breakdown Musculoskeletal: No Tenderness to Palpation of Joints or Extremities Lymphatic: No Cervical, Supraclavicular, or Inguinal Adenopathy Neurological: Cranial nerves II-XII grossly intact Psych/Mental Status: Normal Affect, Appropriate, Alert and oriented to time, place, person, mood and affect Laboratory Results 03/10/18 15:10: Troponin I < 0.015 03/10/18 17:20: Troponin I < 0.015 03/11/18 05:00: WBC 5.2, RBC 4.28, Hgb 13.9, Hct 42.2, MCV 98.6, MCH 32.5 H, MCHC 32.9, RDW 14.4, RDW Differential 52.6 H, Plt Count 204, MPV 10.9 03/11/18 05:25: PT 13.7, INR 1.1, APTT 32.0 03/11/18 05:25: Sodium 143, Potassium 4.2, Chloride 110 H, Carbon Dioxide 27.0, Anion Gap 6, BUN 21 H, Creatinine 0.92, Estim Creat Clear Calc 42.43, Est GFR ( MDRD) Af Amer 77, Est GFR (MDRD) Non-Af 63, BUN/Creatinine Ratio 22.8 H, Glucose 98, Calcium 8.6 Current Medications Acetaminophen (Tylenol) 650 mg PO Q6H PRN PRN PRN Reason: PAIN Aspirin (Aspirin, Baby) 81 mg PO DAILY@0800 [facility] Last Admin: 03/11/18 05:37 Dose: 81 mg Bupropion HCl (Wellbutrin Sr (150mg Tablets)) 150 mg PO BID [facility] Last Admin: 03/11/18 09:51 Dose: 150 mg Buspirone HCl (Buspar) 15 mg PO BID [facility] Last Admin: 03/11/18 09:52 Dose: 15 mg Calcium Carbonate ([facility]Cornel 500) [facility] Last Admin: 03/11/18 09:52 Dose: 500 mg Enoxaparin Sodium (Lovenox) 40 mg SC DAILY@0600 [facility] Last Admin: 03/11/18 07:19 Dose: Not Given Pantoprazole Sodium (Protonix) 20 mg PO QHS [facility] Last Admin: 03/10/18 21:42 Dose: 20 mg Sertraline HCl (Zoloft) 50 mg PO QHS [facility] Last Admin: 03/10/18 21:42 Dose: 50 mg Sodium Chloride () 5 - 30 ml IV UD PRN PRN Reason: SALINE FLUSH Trazodone HCl (Desyrel) 50 mg PO QHS [facility] Last Admin: 03/10/18 21:42 Dose: 50 mg Medical Necessity - Tobacco Use Smoking Status: Never smoker Tobacco Use: Non-smoker Assessment/Plan All Active Problems (Last Reviewed 02/07/18 @ 15:15 by Stephanie Evangelista) Dyspnea (Acute) Irritant contact dermatitis due to plants, except food (Acute) 72-year-old female with a history of arthritis, GERD and depression presenting with a month history of exertional dyspnea which was nos present at rest. 1. Shortness of breath, to rule out cardiac pathology * SOB has resolved this morning. * Vitals stable. * EKG, troponins, BNP were negative. * Dobutamine stress test ws negative today * will get 2D echo to evaluate- patient subsequently wanted to be discharged home, so will have 2D echo on outpatient basis. * to ambulate and assess for dyspnea and assess pulse ox. * 2. Osteoarthritis; stable. Due to follow up with her orthopedic surgeon for spine shots. 3.GERD: stable. on PPI 4. Anxiety/depression: on bupriopion. DVT prophylaxis: lovenox Disposition: With ambulation patient's saturation was 98% on room air she did not get short of breath. Echo was ordered and is at 1 PM was yet to be done. However patient wanted to go home. Will discharge patient, to have echo on outpatient basis. This note was generated with [employer] dictation software. It may contain incorrect words, spelling, and punctuation that were not noted in checking the note before signing. Code Visit OBSV E&M: 12887 Subsequent observation care L2
[2018-03-11 11:44] VITALS: O2SAT 98
--- NOTE | 2018-03-11 13:04 | PCM.DC ---
- Discharge Diagnoses Current Active Problems: Current Active and Chronic Problems (Last Reviewed 02/07/18 @ 15:15 by Stephanie Evangelista) Dyspnea (Acute) Depression (Chronic) Arthritis (Chronic) GERD (gastroesophageal reflux disease) (Chronic) You will use the following diet at home:: Cardiac Your food should be the consistency of: Regular Your liquids should be the consistency of: Regular/Thin Discharge Activity: Return to Normal Activity May resume sexual activity in: No Restrictions Call your doctor if you observe: Shortness of breath, Swelling in the ankles, Chest pain Allergies/Adverse Reactions: Allergies codeine Allergy (Verified 03/10/18 11:44) Swelling Medications to take at Discharge Calcium (Elemental) [Os-Cornel 500] 500 mg PO BIDCM 12/28/13 Nabumetone [Relafen] 750 mg PO BID 12/28/13 Omeprazole [Prilosec] 20 mg PO QHS 12/28/13 buPROPion SR [Wellbutrin SR (150mg tablets)] 150 mg PO BID 12/28/13 traZODone [Desyrel] 50 mg PO QHS 12/28/13 Acetaminophen [Tylenol Extra Strength] 1,000 mg PO PRN PRN 03/10/18 Alendronate Sodium 70 mg PO SALAZAR 03/10/18 Sertraline HCl [Zoloft] 50 mg PO QHS 03/10/18 busPIRone [Buspar] 15 mg PO BID 03/10/18 Primary Care Physician: Jhonny Russo DO [Primary Care Provider] - Please follow up with your Primary Care Physician in: one week Test Results: Proposed Discharge Date: 03/11/18
--- NOTE | 2018-03-11 13:10 | PCM.DC.SUM ---
Discharge Date and Diagnosis - Problem List Patient Problems: Active and Suspected Problems (Last Reviewed 02/07/18 @ 15:15 by Stephanie Evangelista) Dyspnea (Acute) Date of Admission: 03/10/18 Date of Discharge: 03/11/18 - Primary Discharge Diagnosis Active and Suspected Problems (Last Reviewed 02/07/18 @ 15:15 by Stephanie Evangelista) Dyspnea (Acute) - Secondary Discharge Diagnosis Chronic Problems (Last Reviewed 02/07/18 @ 15:15 by Stephanie Evangelista) Depression (Chronic) Arthritis (Chronic) GERD (gastroesophageal reflux disease) (Chronic) Hospital Course and Treatment Imaging Results: 03/11/18 05:55 Nuclear Stress Test - Chemical [NM] AM (NON MEDS) 03/11/18 11:31 2D [Echo Complete] [ECHO] Routine Impressions Chest X-Ray 03/10/18 12:02 IMPRESSION: Hyperinflation. The lungs are clear. Electronically Signed: Michael Santiago MD at 12:41 EDT Tel [phone], Service support , Chest CTA 03/10/18 12:39 IMPRESSION: No acute abnormality is seen. Electronically Signed: Michael Santiago MD at 13:13 EDT Tel [phone], Service support , 03/10/18 12:39 CTA Chest W/WO Contrast [CT] Stat 03/11/18 05:55 Nuclear Stress Test - Chemical [NM] AM (NON MEDS) Laboratory Results 03/10/18 03/10/18 03/11/18 Range/Units 15:10 17:20 05:00 WBC 5.2 (4.4-11.0) K/mm3 RBC 4.28 (4.2-5.4) M/mm3 Hgb 13.9 (12.0-15.0) g/dl Hct 42.2 (37-47) % MCV 98.6 (81-99) fL MCH 32.5 H (27.0-32.0) pg MCHC 32.9 (32-36) g/gl RDW 14.4 (11.6-14.6) % RDW Differential 52.6 H (35.1-43.9) fl Plt Count 204 (150-450) K/mm3 MPV 10.9 (6.2-12.0) fl PT (11.7-14.9) SECONDS INR APTT (24.1-36.2) Seconds Sodium (136-145) mmol/L Potassium (3.5-5.1) mmol/L Chloride (98-107) mmol/L Carbon Dioxide (21.0-32.0) mmol/L Anion Gap (5-15) BUN (7-18) mg/dL Creatinine (0.55-1.02) mg/dL Estim Creat Clear Calc ml/min Est GFR (MDRD) Af Amer (>60) mL/min Est GFR (MDRD) Non-Af (>60) mL/min BUN/Creatinine Ratio (10-20) RATIO Glucose (74-106) mg/dL Calcium (8.5-10.1) mg/dL Troponin I < 0.015 < 0.015 (<0.045) ng/mL 03/11/18 03/11/18 Range/Units 05:25 05:25 WBC (4.4-11.0) K/mm3 RBC (4.2-5.4) M/mm3 Hgb (12.0-15.0) g/dl Hct (37-47) % MCV (81-99) fL MCH (27.0-32.0) pg MCHC (32-36) g/gl RDW (11.6-14.6) % RDW Differential (35.1-43.9) fl Plt Count (150-450) K/mm3 MPV (6.2-12.0) fl PT 13.7 (11.7-14.9) SECONDS INR 1.1 APTT 32.0 (24.1-36.2) Seconds Sodium 143 (136-145) mmol/L Potassium 4.2 (3.5-5.1) mmol/L Chloride 110 H (98-107) mmol/L Carbon Dioxide 27.0 (21.0-32.0) mmol/L Anion Gap 6 (5-15) BUN 21 H (7-18) mg/dL Creatinine 0.92 (0.55-1.02) mg/dL Estim Creat Clear Calc 42.43 ml/min Est GFR (MDRD) Af Amer 77 (>60) mL/min Est GFR (MDRD) Non-Af 63 (>60) mL/min BUN/Creatinine Ratio 22.8 H (10-20) RATIO Glucose 98 (74-106) mg/dL Calcium 8.6 (8.5-10.1) mg/dL Troponin I (<0.045) ng/mL Operations: None Procedures: Stress test Summary of Care Provided: Patient is a 72-year-old female with a history of osteoarthritis, depression and GERD. She was admitted with a complaint of worsening exertional dyspnea for about a months duration. It subsequently became present at rest. She had no associated chest pain or heaviness but noted that her acid reflux had been getting worse. She denied any palpitations, dizziness or edema of the lower extremities. Troponins and BNP were negative and other labs were negative as well. Chest x-ray was negative and EKG showed only periodic PACs. D-dimer was elevated but CT PE done was negative. She was admitted to be worked up for exertional shortness of breath. Patient remained stable, and saturating around 98% on room air throughout his stay here. Patient had a dobutamine stress test on 03/11/2018 which was negative. Patient was scheduled to have an echo on 03/11/2018, however patient wanted to go home. On ambulation on room air, saturation was 98%. Patient insisted on going home just prior to echo being performed. She is therefore to have the echo, results of which are to be sent to her PCP to be communicated to patient. She was discharged on 03/11/18. She is to follow-up with her primary care doctor in 1 week. [] Vital Signs (72 hours) 03/10/18 11:44 03/10/18 13:36 03/10/18 14:21 Temperature 98.5 F 98.4 F Pulse Rate 81 73 81 Respiratory Rate 19 H 13 15 Blood Pressure 131/81 H 151/89 H 160/98 H Blood Pressure [2nd BP] Pulse Ox 95 99 99 Pulse Ox [AMBULATING on Room Air] 03/10/18 15:02 03/10/18 15:05 03/10/18 15:06 Temperature 97.9 F Pulse Rate 72 80 Respiratory Rate 16 Blood Pressure 157/90 H Blood Pressure [2nd BP] 149/84 H Pulse Ox 98 Pulse Ox [AMBULATING on Room Air] 03/10/18 18:57 03/10/18 21:37 03/10/18 23:02 Temperature 99.1 F Pulse Rate 93 80 82 Respiratory Rate 16 Blood Pressure 116/76 Blood Pressure [2nd BP] Pulse Ox 98 Pulse Ox [AMBULATING on Room Air] 03/11/18 03:29 03/11/18 03:44 03/11/18 09:50 Temperature 97.8 F 96.9 F L Pulse Rate 69 71 75 Respiratory Rate 16 18 Blood Pressure 138/66 H 122/97 H Blood Pressure [2nd BP] Pulse Ox 98 98 Pulse Ox [AMBULATING on Room Air] 03/11/18 09:58 03/11/18 11:16 03/11/18 11:44 Temperature Pulse Rate 72 80 Respiratory Rate Blood Pressure Blood Pressure [2nd BP] Pulse Ox Pulse Ox [AMBULATING on Room Air] 98 Discharge Diet: No Restrictions Discharge Activity: Return to Normal Activity May resume sexual activity in: No Restrictions Call your doctor if you observe: Shortness of breath, Swelling in the ankles, Chest pain Home Medications: Medications to take at Discharge Calcium (Elemental) [Os-Cornel 500] 500 mg PO BIDCM 12/28/13 Nabumetone [Relafen] 750 mg PO BID 12/28/13 Omeprazole [Prilosec] 20 mg PO QHS 12/28/13 buPROPion SR [Wellbutrin SR (150mg tablets)] 150 mg PO BID 12/28/13 traZODone [Desyrel] 50 mg PO QHS 12/28/13 Acetaminophen [Tylenol Extra Strength] 1,000 mg PO PRN PRN 03/10/18 Alendronate Sodium 70 mg PO SALAZAR 03/10/18 Sertraline HCl [Zoloft] 50 mg PO QHS 03/10/18 busPIRone [Buspar] 15 mg PO BID 03/10/18 Primary Care Physician: Jhonny Russo DO [Primary Care Provider] - Please follow up with your Primary Care Physician in: one week Disposition: Home Minutes spent on discharge:: 20 Patient Condition:: Good Medical Necessity - Tobacco Use Smoking Status: Never smoker Tobacco Use: Non-smoker Meaningful Use Info Meaningful Use Diagnoses (Choose all that apply): None applicable Code Visit Inpatient E&M: 82475 Disch Hosp
--- NOTE | 2018-03-11 13:16 | DS.PCM_ITS ---
Discharge Date and Diagnosis - Problem List Patient Problems: Active and Suspected Problems (Last Reviewed 02/07/18 @ 15:15 by Stephanie Evangelista ) Dyspnea (Acute) Date of Admission: 03/10/18 Date of Discharge: 03/11/18 - Primary Discharge Diagnosis Active and Suspected Problems (Last Reviewed 02/07/18 @ 15:15 by Stephanie Evangelista ) Dyspnea (Acute) - Secondary Discharge Diagnosis Chronic Problems (Last Reviewed 02/07/18 @ 15:15 by Stephanie Evangelista) Depression (Chronic) Arthritis (Chronic) GERD (gastroesophageal reflux disease) (Chronic) Hospital Course and Treatment Imaging Results: 03/11/18 05:55 Nuclear Stress Test - Chemical [NM] AM (NON MEDS) 03/11/18 11:31 2D [Echo Complete] [ECHO] Routine Impressions Chest X-Ray 03/10/18 12:02 IMPRESSION: Hyperinflation. The lungs are clear. Electronically Signed: Michael Santiago MD at 12:41 EDT Tel [phone], Service support , Chest CTA 03/10/18 12:39 IMPRESSION: No acute abnormality is seen. Electronically Signed: Michael Santiago MD at 13:13 EDT Tel [phone], Service support , 03/10/18 12:39 CTA Chest W/WO Contrast [CT] Stat 03/11/18 05:55 Nuclear Stress Test - Chemical [NM] AM (NON MEDS) Laboratory Results 03/10/18 03/10/18 03/11/18 Range/Units 15:10 17:20 05:00 WBC 5.2 (4.4-11.0) K/mm3 RBC 4.28 (4.2-5.4) M/mm3 Hgb 13.9 (12.0-15.0) g/dl Hct 42.2 (37-47) % MCV 98.6 (81-99) fL MCH 32.5 H (27.0-32.0) pg MCHC 32.9 (32-36) g/gl RDW 14.4 (11.6-14.6) % RDW Differential 52.6 H (35.1-43.9) fl Plt Count 204 (150-450) K/mm3 MPV 10.9 (6.2-12.0) fl PT (11.7-14.9) SECONDS INR APTT (24.1-36.2) Seconds Sodium (136-145) mmol/L Potassium (3.5-5.1) mmol/L Chloride (98-107) mmol/L Carbon Dioxide (21.0-32.0) mmol/L Anion Gap (5-15) BUN (7-18) mg/dL Creatinine (0.55-1.02) mg/dL Estim Creat Clear Calc ml/min Est GFR (MDRD) Af Amer (>60) mL/min Est GFR (MDRD) Non-Af (>60) mL/min BUN/Creatinine Ratio (10-20) RATIO Glucose (74-106) mg/dL Calcium (8.5-10.1) mg/dL Troponin I < 0.015 < 0.015 (<0.045) ng/mL 03/11/18 03/11/18 Range/Units 05:25 05:25 WBC (4.4-11.0) K/mm3 RBC (4.2-5.4) M/mm3 Hgb (12.0-15.0) g/dl Hct (37-47) % MCV (81-99) fL MCH (27.0-32.0) pg MCHC (32-36) g/gl RDW (11.6-14.6) % RDW Differential (35.1-43.9) fl Plt Count (150-450) K/mm3 MPV (6.2-12.0) fl PT 13.7 (11.7-14.9) SECONDS INR 1.1 APTT 32.0 (24.1-36.2) Seconds Sodium 143 (136-145) mmol/L Potassium 4.2 (3.5-5.1) mmol/L Chloride 110 H (98-107) mmol/L Carbon Dioxide 27.0 (21.0-32.0) mmol/L Anion Gap 6 (5-15) BUN 21 H (7-18) mg/dL Creatinine 0.92 (0.55-1.02) mg/dL Estim Creat Clear Calc 42.43 ml/min Est GFR (MDRD) Af Amer 77 (>60) mL/min Est GFR (MDRD) Non-Af 63 (>60) mL/min BUN/Creatinine Ratio 22.8 H (10-20) RATIO Glucose 98 (74-106) mg/dL Calcium 8.6 (8.5-10.1) mg/dL Troponin I (<0.045) ng/mL Operations: None Procedures: Stress test Summary of Care Provided: Patient is a 72-year-old female with a history of osteoarthritis, depression and GERD. She was admitted with a complaint of worsening exertional dyspnea for about a months duration. It subsequently became present at rest. She had no associated chest pain or heaviness but noted that her acid reflux had been getting worse. She denied any palpitations, dizziness or edema of the lower extremities. Troponins and BNP were negative and other labs were negative as well. Chest x-ray was negative and EKG showed only periodic PACs. D-dimer was elevated but CT PE done was negative. She was admitted to be worked up for exertional shortness of breath. Patient remained stable, and saturating around 98% on room air throughout his stay here. Patient had a dobutamine stress test on 03/11/2018 which was negative. Patient was scheduled to have an echo on 2017, however patient wanted to go home. On ambulation on room air, saturation was 98%. Patient insisted on going home just prior to echo being performed. She is therefore to have the echo, results of which are to be sent to her PCP to be communicated to patient. She was discharged on 03/11/18. She is to follow- up with her primary care doctor in 1 week. [] Vital Signs (72 hours) 03/10/18 11:44 03/10/18 13:36 03/10/18 14:21 Temperature 98.5 F 98.4 F Pulse Rate 81 73 81 Respiratory Rate 19 H 13 15 Blood Pressure 131/81 H 151/89 H 160/98 H Blood Pressure [2nd BP] Pulse Ox 95 99 99 Pulse Ox [AMBULATING on Room Air] 03/10/18 15:02 03/10/18 15:05 03/10/18 15:06 Temperature 97.9 F Pulse Rate 72 80 Respiratory Rate 16 Blood Pressure 157/90 H Blood Pressure [2nd BP] 149/84 H Pulse Ox 98 Pulse Ox [AMBULATING on Room Air] 03/10/18 18:57 03/10/18 21:37 03/10/18 23:02 Temperature 99.1 F Pulse Rate 93 80 82 Respiratory Rate 16 Blood Pressure 116/76 Blood Pressure [2nd BP] Pulse Ox 98 Pulse Ox [AMBULATING on Room Air] 03/11/18 03:29 03/11/18 03:44 03/11/18 09:50 Temperature 97.8 F 96.9 F L Pulse Rate 69 71 75 Respiratory Rate 16 18 Blood Pressure 138/66 H 122/97 H Blood Pressure [2nd BP] Pulse Ox 98 98 Pulse Ox [AMBULATING on Room Air] 03/11/18 09:58 03/11/18 11:16 03/11/18 11:44 Temperature Pulse Rate 72 80 Respiratory Rate Blood Pressure Blood Pressure [2nd BP] Pulse Ox Pulse Ox [AMBULATING on Room Air] 98 Discharge Diet: No Restrictions Discharge Activity: Return to Normal Activity May resume sexual activity in: No Restrictions Call your doctor if you observe: Shortness of breath, Swelling in the ankles, Chest pain Home Medications: Medications to take at Discharge Calcium (Elemental) [Os-Cornel 500] 500 mg PO BIDCM 12/28/13 Nabumetone [Relafen] 750 mg PO BID 12/28/13 Omeprazole [Prilosec] 20 mg PO QHS 12/28/13 buPROPion SR [Wellbutrin SR (150mg tablets)] 150 mg PO BID 12/28/13 traZODone [Desyrel] 50 mg PO QHS 12/28/13 Acetaminophen [Tylenol Extra Strength] 1,000 mg PO PRN PRN 03/10/18 Alendronate Sodium 70 mg PO SALAZAR 03/10/18 Sertraline HCl [Zoloft] 50 mg PO QHS 03/10/18 busPIRone [Buspar] 15 mg PO BID 03/10/18 Primary Care Physician: Jhonny Russo DO [Primary Care Provider] - Please follow up with your Primary Care Physician in: one week Disposition: Home Minutes spent on discharge:: 20 Patient Condition:: Good Medical Necessity - Tobacco Use Smoking Status: Never smoker Tobacco Use: Non-smoker Meaningful Use Info Meaningful Use Diagnoses (Choose all that apply): None applicable Code Visit Inpatient E&M: 40483 Disch Hosp
== END 2018-03-11 13:08 | disposition home or self-care (01) ==
LOC: ED 12:38 → PCU 14:12
PROVIDERS: Admitting Provider Internal Medicine; Emergency Provider Emergency Medicine; Family Provider Student in an Organized Health Care Education/Training Program; PCP Student in an Organized Health Care Education/Training Program; Visit Provider Student in an Organized Health Care Education/Training Program
DX: R06.09 Other forms of dyspnea (principal); R06.02 Shortness of breath; R53.83 Other fatigue; M19.90 Unspecified osteoarthritis, unspecified site; F32.9 Major depressive disorder, single episode, unspecified; F41.9 Anxiety disorder, unspecified; K21.9 Gastro-esophageal reflux disease without esophagitis; Z79.899 Other long term (current) drug therapy
CPT/HCPCS: 36415; 71045; 71275; 78452; 80048; 83880; 84484; 85025; 85027; 85379; 85610; 85730; 93005; 93017; 93306; 96360; 96361; 99218; 99285; A9500; J7030; Q9967; A4216; G0378; J2785

== ENCOUNTER → 2018-07-03 13:23 | Outpatient (CLI) | payer MEDICARE, SELFPAY ==
--- NOTE | 2018-07-03 13:25 | RAD_ITS ---
STUDY: X-RAY - UNILATERAL RIBS ( LEFT ) WITH CHEST REASON FOR EXAM: Female, 72 years old. Sudden left lower rib pain. TECHNIQUE - RIBS: 2 view(s) of the ribs. TECHNIQUE - CHEST: Single PA view of the chest. COMPARISON: Comparison is made with prior examination dated March 10, 2018. FINDINGS - RIBS: Healed multiple left sided rib fractures. Healed right fifth rib fracture. FINDINGS - CHEST: The lungs are clear and expanded. There is no demonstrated pleural abnormality. Normal size heart. Normal mediastinum and constantine. Normal visualized pulmonary arteries. There is atherosclerotic tortuosity of the aortic arch and descending thoracic aorta. There are diffuse degenerative changes of the visualized thoracic spine. Prior laminectomy and fusion of the lumbar spine. Right shoulder replacement. There is no demonstrated abnormality of the visualized soft tissue structures of the upper abdomen. RAD/Ribs Uni Min 3V w/PA Chest IMPRESSION: RIBS: Healed bilateral rib fractures more prominent on the left side. No acute fracture is seen. CHEST: Normal x-ray examination of the chest. Electronically Signed: Michael Santiago MD at 14:24 EDT Tel [phone], Service support ,
== END ==
PROVIDERS: Family Provider Student in an Organized Health Care Education/Training Program; PCP Student in an Organized Health Care Education/Training Program; Referring Provider Physician Assistant; Visit Provider Physician Assistant
DX: R07.81 Pleurodynia (principal)
CPT/HCPCS: 71101

== ENCOUNTER 2018-07-07 10:22 | Emergency (ER) | payer MEDICARE, SELFPAY ==
[2018-07-07 10:23] VITALS: BP 162/98; PULSE 98; RESP 16; TEMP 36.4; O2SAT 97; BMI 22.4
--- NOTE | 2018-07-07 10:30 | CT_ITS ---
STUDY: CT ABDOMEN AND PELVIS WITHOUT CONTRAST REASON FOR EXAM: Female, 72 years old. Left flank pain. RADIATION DOSAGE (If Supplied By Facility): CTDIvol = ( 6.49 ) mGy, DLP = ( 291.73 ) mGycm TECHNIQUE: Transaxial images were obtained from the dome of the diaphragm to the symphysis pubis without oral contrast, and without intravenous contrast. Sagittal and coronal images were reconstructed. Individualized dose optimization techniques were used for this CT. COMPARISON: Comparison is made with prior examination dated December 28, 2013. FINDINGS: Mild increased markings at the lung bases suggestive of mild bibasilar atelectasis and/or scarring. Coronary artery calcification. Normal liver. Normal gallbladder and extrahepatic biliary system. Normal spleen. Normal pancreas. Normal bilateral adrenal glands. Normal right kidney. Normal left kidney. There is a small hiatal hernia. Normal small intestine. There are multiple colonic diverticula consistent with diverticulosis. Moderate amount of fecal material is seen in the colon. The appendix is visualized and appears normal. There is diffuse atherosclerotic calcification of the abdominal aorta, without a demonstrated aneurysm. Normal inferior vena cava. Normal retroperitoneum. Normal urinary bladder. Normal abdominal wall. There are diffuse degenerative changes of the visualized lumbar spine. Prior laminectomy and fusion of the lumbar spine. Stable anterior listhesis of L4 on L5. Dextroscoliosis. CT/Abdomen/Pelvis without Cont IMPRESSION: Moderate amount of fecal material is seen in the colon. Electronically Signed: Michael Santiago MD at 11:19 EDT Tel [phone], Service support ,
[2018-07-07] MEDS: oxyCODONE 5 MG Tablet PO (10:42)
[2018-07-07 11:36] LABS: Bacteria 0 SEEN /hpf (None Seen); Mucous, Urine 0 SEEN /hpf (<or=2+); Red Blood Cells-Urine 0 SEEN /hpf (0-5); Squamous Epithelial Cells - UA 0 SEEN /hpf (5-10); White Blood Cells 0 SEEN /hpf (0-5)
--- NOTE | 2018-07-07 11:41 | ED.VISSUMM ---
- ER Visit Summary Date of Service: 07/07/18 Chief Complaint: Left flank pain History of Present Illness: The patient is a 72 F presenting with 4 days of atraumatic left flank pain. She does not recall any specific injury and she definitely did not fall. It is in the upper lumbar paraspinal region, essentially over her kidney. No chest pain or thoracic pain. No radiation of this pain. No hematuria or urinary symptoms. No shortness of breath and there is no pleuritic component. No recent travel or immobilization. No history of DVT or PE. 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 This pain is definitely affected by movement and position. It is worse when bending forward and relieved when laying flat with a slight incline. She denies lower extremity weakness, bowel bladder dysfunction, or groin paresthesias. Physical Examination: Those are within normal limits. She is not tachycardic or tachypneic. Pulse oximetry is 99% on room air. She is not in distress. She has reproducible paraspinal tenderness on the left. No rib tenderness. No anterior abdominal tenderness. Normal strength and sensation in both lower extremities. Negative Babinski's. No clonus. Overlying skin looks normal. No rash to suggest shingles. Test Results: Urinalysis is unremarkable. No evidence of infection. CT abdomen/pelvis revealed evidence of constipation but no acute process. No evidence of ureteral stone. Her pain was addressed here with oxycodone and she feels much better. She has a normal neurologic exam. Negative Babinski's, no clonus, no findings to suggest cauda equina syndrome or paraspinal/epidural abscess. No trauma. The pain seems clearly musculoskeletal in nature. She has no rash to suggest shingles. No anterior abdominal discomfort. There is no pleuritic component and it is really below her lungs in location so I think pulmonary embolism is extremely unlikely, especially in the absence of risk factors and with a pulse ox of 99% and no tachycardia. I suspect this is related to her chronic spinal issues but I cannot say with certainty. I spoke at length with her regarding the importance of close follow-up. She will be given a short prescription for Percocet as well as Medrol Dosepak and she is going to follow-up with a spine surgeon but will return here if worse. Emergency Department Course and Treatment: Addressed pain, follow-up with spine surgeon Treatment Plan: Return here if worse Disposition: Home stable Impression: Initial encounter acute left flank pain This note was generated with [employer] dictation software. It may contain incorrect words, spelling, and punctuation that were not noted in review of the chart prior to signing ED Disposition - Plan for ED Patient: Chief Complaint: Flank Pain Instructions: ED Flank Pain Uncertain Cause Prescriptions: Oxycodone [Oxyir] 5 mg PO Q4H PRN PRN 3 Days #14 tablet PRN Reason: Pain MethylPREDNISolone DosePak [Medrol DosePak] 4 mg PO UD #1 box Referrals: Jhonny Russo DO [Primary Care Provider] -
[2018-07-07 11:42] LABS: Color, Urine Yellow (Yellow); Glucose, Dipstick Normal (Normal); Ketone-Dipstick Negative (Negative); Leukocyte Esterase-Dipstick 25 /ul (Negative); Nitrite-Dipstick Negative (Negative); Occult Blood-Urine Negative /ul (Negative); Protein-Dipstick Negative (Negative); Specific Gravity, Urine 1.015 (1.002-1.030); Urine Bilirubin Dipstick Negative (Negative); Urine Clarity Sl. Cloudy (Clear); Urine Urobilinogen Normal (Normal); Urine pH 6.5 (5.0 - 8.0)
--- NOTE | 2018-07-07 11:48 | ED.DCSUM_ITS ---
- ER Visit Summary Date of Service: 07/07/18 Chief Complaint: Left flank pain History of Present Illness: The patient is a 72 F presenting with 4 days of atraumatic left flank pain. She does not recall any specific injury and she definitely did not fall. It is in the upper lumbar paraspinal region, essent ially over her kidney. No chest pain or thoracic pain. No radiation of this pain. No hematuria or urinary symptoms. No shortness of breath and there is no pleuritic component. No recent travel or immobilization. No history of DVT or PE. 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 This pain is definitely affected by movement and position. It is worse when bending forward and relieved when laying flat with a slight incline. She denies lower extremity weakness, bowel bladder dysfunction, or groin paresthesias. Physical Examination: Those are within normal limits. She is not tachycardic or tachypneic. Pulse oximetry is 99% on room air. She is not in distress. She has reproducible paraspinal tenderness on the left. No rib tenderness. No anterior abdominal tenderness. Normal strength and sensation in both lower extremities. Negative Babinski's. No clonus. Overlying skin looks normal. No rash to suggest shingles. Test Results: Urinalysis is unremarkable. No evidence of infection. CT abdomen/pelvis revealed evidence of constipation but no acute process. No evidence of ureteral stone. Her pain was addressed here with oxycodone and she feels much better. She has a normal neurologic exam. Negative Babinski's, no clonus, no findings to suggest cauda equina syndrome or paraspinal/epidural abscess. No trauma. The pain seems clearly musculoskeletal in nature. She has no rash to suggest shingles. No anterior abdominal discomfort. There is no pleuritic component and it is really below her lungs in location so I think pulmonary embolism is extremely unlikely, especially in the absence of risk factors and with a pulse ox of 99% and no tachycardia. I suspect this is related to her chronic spinal issues but I cannot say with certainty. I spoke at length with her regarding the importance of close follow-up. She will be g iven a short prescription for Percocet as well as Medrol Dosepak and she is going to follow-up with a spine surgeon but will return here if worse. Emergency Department Course and Treatment: Addressed pain, follow-up with spine surgeon Treatment Plan: Return here if worse Disposition: Home stable Impression: Initial encounter acute left flank pain This note was generated with [employer] dictation software. It may contain incorrect words, spelling, and punctuation that were not noted in review of the chart prior to signing ED Disposition - Plan for ED Patient: Chief Complaint: Flank Pain Instructions: ED Flank Pain Uncertain Cause Prescriptions: Oxycodone [Oxyir] 5 mg PO Q4H PRN PRN 3 Days #14 tablet PRN Reason: Pain MethylPREDNISolone DosePak [Medrol DosePak] 4 mg PO UD #1 box Referrals: Jhonny Russo DO [Primary Care Provider] -
[2018-07-07 12:15] VITALS: BP 138/76; PULSE 59; RESP 16; O2SAT 98
== END 2018-07-07 12:18 | disposition home or self-care (01) ==
LOC: ED 11:12
PROVIDERS: Emergency Provider Emergency Medicine; Family Provider Student in an Organized Health Care Education/Training Program; PCP Student in an Organized Health Care Education/Training Program
DX: R10.9 Unspecified abdominal pain (principal)
CPT/HCPCS: 74176; 81001; 87086; 87088; 99282

== ENCOUNTER → 2018-07-21 14:38 | Outpatient (CLI) | payer MEDICARE, SELFPAY ==
--- NOTE | 2018-07-21 14:42 | BI_ITS ---
MAMMOGRAPHY - BILATERAL SCREENING REASON FOR EXAM: Female, 72 years old. Routine annual screening examination. PERTINENT HISTORY: Remote left stereotactic breast biopsy. TECHNIQUE: Digital bilateral breast deiis (3D mammographic acquisition) in the CC and MLO projections. 2-D mediolateral oblique (MLO) and craniocaudad (CC) views of both breasts were obtained. CAD: Full Field Digital Mammography with Computer Added Detection was performed. COMPARISON: Comparison is made with prior examination dated May 15, 2017 and March 13, 2016. FINDINGS: Breast Composition: There are scattered areas of fibroglandular density. There are no dominant masses or suspicious calcifications. A tissue clip marker is once again seen in the upper outer quadrant of the left breast. This is unchanged. Stable benign-appearing left axillary lymph nodes. Stable secretory calcifications bilaterally. No other significant abnormalities are identified. There has been no significant change since the prior study. BI/SCREENING MAMM (CAD), BILAT IMPRESSION: Stable bilateral screening mammogram. Yearly follow-up mammogram recommended. (A) ASSESSMENT CATEGORY: BIRADS Category 2: Benign. A letter regarding these results will be sent to the patient by the facility within 30 days. Approximately 10% of breast cancers are not detected by mammography. A normal mammogram should not delay biopsy of a clinically suspicious abnormality. [id number] Electronically Signed: Michael Santiago MD at 15:48 EST Tel [phone], Service support ,
== END ==
PROVIDERS: Family Provider Student in an Organized Health Care Education/Training Program; PCP Student in an Organized Health Care Education/Training Program; Referring Provider Student in an Organized Health Care Education/Training Program; Visit Provider Student in an Organized Health Care Education/Training Program
DX: Z12.31 Encounter for screening mammogram for malignant neoplasm of breast (principal)
CPT/HCPCS: 77063; 77067

== ENCOUNTER 2018-11-04 14:30 | Outpatient (RCR) | payer MEDICARE, SELFPAY ==
--- NOTE | 2018-08-07 14:28 | HP.PTEVAL_ITS ---
Patient's Visit Information ELIAN ALVARADO is a 72 year old F referred to Physical Therapy by Hiram Mcconnell MD with a diagnosis of Lumbar. Date of Evaluation: 08/07/18 Physical Therapist: Kortney Ching - Visit Plan Frequency: 3x /Week Duration: 3 Weeks Plan: Focus on core s/s - Subjective Findings: Multiple back surgeries- Patient has pain across the back which shifts back and forth across the back- the last few weeks its been really bad on the right. When she gets really tired it gets worse. Saw Dr. Claros who is going to do injection series and talk about a pain stimulaor pump. She is going to have the pain stimulator put in- but it will be in a couple of months. The injections have not been scheduled yet. Feels the pain is getting worse. She has no current leg pain but the pain is mostly in the right side of the pelvis and along the back. Worst: 9/10 Agg: walking, bending forwards when in the kitchen. Eases: heat Best: 3/10. Describes the pain as sharp/shooting. No N/T in the LE- no loss or change of bowel or bladder. No recent MRI or x-rays- did have a CT scan a few months ago for her left flank/pelvis. Sleep: not disturbed. Pmhx: no changes meds: no changes - Objective Posture: FH, RS, Increased kyphosis- can not correct even given verbale and tactile cueing. Gait: guarded- slow and decreased trunk movements- decreased stance on left LE. HR/TR: able but required UE A. Balance:30 seconds each Le with signficant trunk sway. ROM: lumbar: WNL but guarded, Hip/Knee/Ankle: WNL. Strength: Ankle: 5/5, Knee 5/5, Hip: 4/5 throughout with pain Core: poor. Palpation: tender along greater troch, piriformis, SI joint line on the left- right side pauly is sticking through muscle but not skin. - Goals Goal 1:: Patient will be I with HEP and progression Goal Time Frame: 4-6 Weeks Goal 2:: Patient will maintain proper posture t/o tx session to demo increased core s/s Goal Time Frame: 4-6 Weeks Goal 3:: Patient will be report 2/10 pain for 1 week Goal Time Frame: 4-6 Weeks - Rehabilitation Potential Physical Therapy Diagnosis: Patient presents with hypomobility- she has decreased strength and muscular endurane leading to poor posture and increased pain. Rehabilitation Potential: Fair - Anticipated Interventions Patient/Client Instruction: Educate patient on: Benefits of Fitness Program Therapeutic Exercise to Include: Strength training, Endurance training, Agility training, Body mechanics, Postural training, Flexibilty training, Gait and locomotor training, In an aquatic setting, Dynamic Lumbar Stabilization For the Purpose of:: To improve muscle performance and motor function Thank you for the opportunity to evaluate your patient. For Medicare and Medicare HMO plans, please review the plan of care and approve it. It will need to be FAXED BACK to us at [phone] for Medicare purposes. For Medicare only, by signing this I certify the plan of care. Please let me know if there are questions or concerns regarding this plan of care. Physician Signature: Date:
--- NOTE | 2018-08-29 10:19 | HP.PTREVAL ---
Hiram Mcconnell MD, It has been my pleasure to treat ELIAN ALVARADO over the last 9 visits for Lumbar. Please see the progress note below for an update on the physical therapy plan of care! Subjective: Patient reports that she is doing pretty good- feels the water really helps and its a slow process but its def the right path. Patient reports pain level is a 0/10. When she comes in its normally a 2/10 and when she walkes further the pain increases. Objective/Function: Posture: FH, RS, Increased kyphosis- more upright in sitting Gait: increased trunk rotation and arm swing. HR/TR: able but required UE A. Balance:30 seconds each Le with signficant trunk sway. ROM: lumbar: WNL but guarded, Hip/Knee/Ankle: WNL. Strength: Ankle: 5/5, Knee 5/5, Hip: 4+/5 throughout with pain Core: fair. Palpation: tender along greater troch, piriformis, SI joint line on the left- right side pauly is sticking through muscle but not skin. Plan Plan: Cont 2x a week 4 weeks Goals Goal 1:: Patient will be I with HEP and progression Goal Time Frame: 4-6 Weeks Goal Progress: Progressing Goal 2:: Patient will maintain proper posture t/o tx session to demo increased core s/s Goal Time Frame: 4-6 Weeks Goal Progress: Progressing Goal 3:: Patient will be report 2/10 pain for 1 week Goal Time Frame: 4-6 Weeks Goal Progress: Progressing Anticipated Interventions Patient/Client Instruction: Educate patient on: Benefits of Fitness Program Therapeutic Exercise to Include: Strength training, Endurance training, Agility training, Body mechanics, Postural training, Flexibilty training, Gait and locomotor training, In an aquatic setting, Dynamic Lumbar Stabilization For the Purpose of:: To improve muscle performance and motor function Please do not hesitate to contact me at [phone] by phone or if you have questions or concerns regarding this new plan of care! Sincerely, Kortney Ching DPT
--- NOTE | 2018-10-13 14:57 | HP.PTREVAL_ITS ---
Hiram Mcconnell MD, It has been my pleasure to treat ELIAN ALVARADO over the last 18 visits for Lumbar. Please see the progress note below for an update on the physical therapy plan of care! Subjective: Patient reports that she is a lot better than she was- had an injection by Dr. Gauthier Sep 12 and it really helped for about 2.5 weeks bu then she started feeling the pain again- not quite as bad but she went to the flower show and had to sit down. Standing in one spot just really bothered her and they had to leave. Dr. Gauthier gave her a brochure on a pain stimulator. Objective/Function: Posture: FH, RS, Increased kyphosis- more upright in sitting Gait: increased trunk rotation and arm swing. HR/TR: able but required UE A. Balance:30 seconds each Le with signficant trunk sway. ROM: lumbar: WNL but guarded, Hip/Knee/Ankle: WNL. Strength: Ankle: 5/5, Knee 5/5, Hip: 4+/5 throughout with pain Core: fair plus. Palpation: tender along greater troch, piriformis, SI joint line on the left- right side pauly is sticking through muscle but not skin. Plan Plan: Continue 2x a week for 3 weeks while she meets with pain mgmt about pain stimulator Goals Goal 1:: Patient will be I with HEP and progression Goal Time Frame: 4-6 Weeks Goal Progress: Progressing Goal 2:: Patient will maintain proper posture t/o tx session to demo increased core s/s Goal Time Frame: 4-6 Weeks Goal Progress: Progressing Goal 3:: Patient will be report 2/10 pain for 1 week Goal Time Frame: 4-6 Weeks Goal Progress: Progressing Anticipated Interventions Patient/Client Instruction: Educate patient on: Benefits of Fitness Program Therapeutic Exercise to Include: Strength training, Endurance training, Agility training, Body mechanics, Postural training, Flexibilty training, Gait and loc omotor training, In an aquatic setting, Dynamic Lumbar Stabilization For the Purpose of:: To improve muscle performance and motor function Please do not hesitate to contact me at [phone] by phone or if you have questions or concerns regarding this new plan of care! Sincerely, Kortney Ching DPT
--- NOTE | 2018-11-04 14:50 | HP.PTDCSUM ---
HP - PT D/C Summary It has been my pleasure to treat ELIAN ALVARADO under orders from Hiram Mcconnell MD, for the diagnosis of Lumbar for a total of 24 visit(s). Discharge Date: Please see the following information for a summary of their discharge status. - Subjective Subjective: Since last time we talked she went to see PA from Dr. Claros- they decided to cauderize the right side on November 14 and then will decide about the pain stimulator. Starting last week the pain has been really bad. Feels that PT is helping but the pain is really setting in. Does have not access to the pool. Is less painful when she gets out of the water- it lessens the pain for a couple of hours but then it goes back when she does her ADL's. - Overall Improvement % Improvement: 40 - Objective Objective/Function: No changes since last re-evaluation- Posture: FH, RS, Increased kyphosis- more upright in sitting Gait: increased trunk rotation and arm swing. HR/TR: able but required UE A. Balance:30 seconds each Le with signficant trunk sway. ROM: lumbar: WNL but guarded, Hip/Knee/Ankle: WNL. Strength: Ankle: 5/5, Knee 5/5, Hip: 4+/5 throughout with pain Core: fair plus. Palpation: tender along greater troch, piriformis, SI joint line on the left- right side pauly is sticking through muscle but not skin. - Goals Goal 1:: Patient will be I with HEP and progression Goal Progress: Progressing Goal 2:: Patient will maintain proper posture t/o tx session to demo increased core s/s Goal Progress: Progressing Goal 3:: Patient will be report 2/10 pain for 1 week Goal Progress: Progressing - Plan Plan: Discharge to I HEP - D/C Information If there are questions or concerns regarding this patient's physical therapy, please feel free to call me at [phone]. Thank you for the referral of this patient. Sincerely, Kortney Ching DPT
== END 2018-11-04 19:00 | disposition home or self-care (01) ==
LOC: PT 14:30
PROVIDERS: Family Provider Student in an Organized Health Care Education/Training Program; PCP Student in an Organized Health Care Education/Training Program; Referring Provider Anesthesiology Pain Medicine; Visit Provider Anesthesiology Pain Medicine
DX: M53.3 Sacrococcygeal disorders, not elsewhere classified (principal); M96.1 Postlaminectomy syndrome, not elsewhere classified; M54.16 Radiculopathy, lumbar region; M51.36 Other intervertebral disc degeneration, lumbar region; M48.061 Spinal stenosis, lumbar region without neurogenic claudication
CPT/HCPCS: 97113; 97161; 97164; G8978; G8979

== ENCOUNTER → 2018-12-01 13:18 | Outpatient (CLI) | payer MEDICARE, SELFPAY ==
[2018-12-01 14:56] LABS: ALB/GLOB Ratio 1.2 RATIO (0.9-2.4); AST(SGOT) 26 U/L (15-37); Alanine Aminotransfer ALT/SGPT 24 U/L (13-56); Albumin, Serum 3.8 g/dL (3.2-5.0); Alkaline Phosphatase 80 U/L (45-117); Anion Gap 3 (5-15); BUN 18 mg/dL (7-18); Calcium,Total 8.6 mg/dL (8.5-10.1); Chloride 109 mmol/L (98-107); Cholesterol 197 mg/dL (200); EST Glomerular Filtration Rate 65 mL/min (>60); Est Glom Filt Rate - Afr Amer 78 mL/min (>60); Globulin 3.3 g/dL (2.2-4.2); Glucose 85 mg/dL (74-106); High Density Lipoprotein 47 mg/dL; Potassium 3.7 mmol/L (3.5-5.1); Protein, Total 7.1 g/dL (6.4-8.2); Sodium Level 141 mmol/L (136-145); Triglycerides 158 mg/dL; Very Low Density Lipoprotein 32 mg/dL (5-40)
[2018-12-01 15:03] LABS: Vitamin D,25 Hydroxy 60.6 ng/mL (29.95-100.01)
[2018-12-01 15:10] LABS: Absolute Lymphocyte Count 1.28 X10^3/ul (0.83-4.51); Absolute Neutrophil Count 3.9 X10^3/uL (2.0-7.7); Basophil# 0.03 X10^3/uL; Basophil% 0.5 % (0-1); Eosinophil# 0.26 X10^3/uL; Eosinophils% 4.3 % (0-5); Hematocrit 44.3 % (37-47); Hemoglobin 14.9 g/dl (12.0-15.0); Lymphocyte # 1.28 X10^3/ul (4.0); Lymphocyte % 21.1 % (19-41); Mean Corp Hgb Conc 33.6 g/gl (32-36); Mean Corpuscular Hgb 33.9 pg (27.0-32.0); Mean Corpuscular Volume 100.9 fL (81-99); Mean Platelet Vol. 11.9 fl (6.2-12.0); Monocyte# 0.56 X10^3/uL; Monocyte% 9.2 % (0-10); Neutrophil # 3.94 X10^3/uL (2.7-7.7); Neutrophil % 64.7 % (47-70); Platelet Count 241 K/mm3 (150-450); Red Blood Count 4.39 M/mm3 (4.2-5.4); White Blood Count 6.1 K/mm3 (4.4-11.0)
[2018-12-01 15:22] LABS: POSITIVE COUNT NO; POSITIVE DIFFERENTIAL NO; POSITIVE MORPHOLOGY NO
== END ==
PROVIDERS: Family Provider Family Medicine; PCP Family Medicine; Visit Provider Family Medicine
DX: I10 Essential (primary) hypertension (principal); M81.0 Age-related osteoporosis without current pathological fracture
CPT/HCPCS: 36415; 80053; 80061; 82306; 85025

== ENCOUNTER → 2018-12-15 | Outpatient (CLI) | payer MEDICARE, SELFPAY ==
--- NOTE | 2018-12-15 11:20 | RAD_ITS ---
STUDY: X-RAY CHEST REASON FOR EXAM: Female, 73 years old. Persistent cough. Left-sided rib pain following a recent fall. TECHNIQUE: PA and lateral views of the chest. COMPARISON: Comparison is made with prior study dated March 10, 2018. FINDINGS: Scattered calcified granulomas. No acute infiltrate is seen. There is no demonstrated pleural abnormality. Normal size heart. Normal mediastinum and constantine. Normal visualized pulmonary arteries. Normal visualized aortic arch and descending thoracic aorta. There are diffuse degenerative changes of the visualized thoracic spine. Mild atherosclerosis. Prior fusion of the lumbar spine. Healed bilateral rib fractures. Status post right shoulder replacement. There is no demonstrated abnormality of the visualized soft tissue structures of the upper abdomen. RAD/Chest PA and Lateral IMPRESSION: No acute abnormality is seen. Electronically Signed: Michael Santiago, at 12:51 EDT , Service support ,
== END | disposition home or self-care (01) ==
PROVIDERS: Family Provider Family Medicine; PCP Family Medicine; Visit Provider Family Medicine
DX: R05 Cough (principal)
CPT/HCPCS: 71046

== ENCOUNTER → 2019-06-11 | Outpatient (CLI) | payer MEDICARE, SELFPAY ==
[2019-06-11 12:25] LABS: Absolute Lymphocyte Count 1.12 X10^3/uL (0.83-4.51); Basophil# 0.05 X10^3/uL; Eosinophil# 0.17 X10^3/uL; Eosinophils% 3.5 % (0-5); Hematocrit 43.6 % (37-47); Hemoglobin 14.5 g/dL (12.0-15.0); Lymphocyte # 1.12 X10^3/ul (4.0); Mean Corp Hgb Conc 33.3 g/dL (32-36); Mean Corpuscular Hgb 34.5 pg (27.0-32.0); Mean Corpuscular Volume 103.8 fL (81-99); Mean Platelet Vol. 11.6 fl (6.2-12.0); Monocyte# 0.54 X10^3/uL; Monocyte% 11.1 % (0-10); NRBC Flagged by Analyzer 0 % (0-5); Neutrophil # 2.97 X10^3/uL (2.7-7.7); Neutrophil % 61.2 % (47-70); Platelet Count 247 K/mm3 (150-450); RBC Distribution Width CV 13.2 % (11.6-14.6); RBC Distribution Width SD 50.3 fl (35.1-43.9); White Blood Count 4.9 K/mm3 (4.4-11.0)
[2019-06-11 12:46] LABS: ALB/GLOB Ratio 1.1 RATIO (0.9-2.4); AST(SGOT) 19 U/L (15-37); Alanine Aminotransfer ALT/SGPT 23 U/L (13-56); Albumin, Serum 3.7 g/dL (3.2-5.0); Alkaline Phosphatase 80 U/L (45-117); Anion Gap 3 (5-15); BUN 10 mg/dL (7-18); BUN/Creat Ratio 10.5 RATIO (10-20); Calcium,Total 9.2 mg/dL (8.5-10.1); Chloride 106 mmol/L (98-107); Creatinine, Serum 0.96 mg/dL (0.55-1.02); EST Glomerular Filtration Rate 61 mL/min (>60); Est Glom Filt Rate - Afr Amer 73 mL/min (>60); Globulin 3.3 g/dL (2.2-4.2); Glucose 100 mg/dL (74-106); Potassium 4.2 mmol/L (3.5-5.1); Sodium Level 139 mmol/L (136-145); Thyroid Stim Hormone (TSH) 4.73 uIU/mL (0.358-3.74)
[2019-06-11 12:52] LABS: Vitamin B12 881 pg/mL (211-911)
== END | disposition home or self-care (01) ==
LOC: BFHLAB 09:33
PROVIDERS: Family Provider Family Medicine; PCP Family Medicine; Visit Provider Family Medicine
DX: I10 Essential (primary) hypertension (principal); M81.0 Age-related osteoporosis without current pathological fracture; R53.83 Other fatigue; R25.1 Tremor, unspecified
CPT/HCPCS: 36415; 80053; 82607; 84443; 85025

== ENCOUNTER → 2019-07-28 14:02 | Outpatient (CLI) | payer MEDICARE, SELFPAY ==
--- NOTE | 2019-07-28 14:57 | BD_ITS ---
STUDY: DUAL ENERGY X-RAY ABSORPTIOMETRY / DXA REASON FOR EXAM: Female, 73 years old. The patient is postmenopausal. Loss of height. TECHNIQUE: Bone Mineral Density (BMD) measurements of both forearms were obtained. COMPARISON: None. FINDINGS: Right Forearm: g/cm2 (0.525) / T-score (-4.1) / Z-score (-1.7) Left Forearm: g/cm2 (0.492) / T-score (-4.5) / Z-score (-2.1) BD/Dexa Bone Density/Append Skel IMPRESSION: The patient is considered osteoporotic as outlined below according to World Germain Organization (WHO) criteria with a high fracture risk. Reference Information: The T-score is the number of standard deviations above or below the standard which is normal for young adults at their peak bone mineral density. The World Health Organization (WHO) interprets the T-scores as follows: Above -1 Normal bone density Between -1 and -2.5 Osteopenia Equal to / or below -2.5 Osteoporosis As a practical clinical guideline, osteopenia may be graded as follows: Mild -1 through -1.5 Moderate -1.6 through -2.0 Severe -2.1 through -2.4 The Z-score is the number of standard deviations above or below age-matched controls. A Z-score of less than -1.5 would be considered abnormal. References: 1. NIH Osteoporosis and Related Bone Diseases http://www.osteo.org 2. International Society for Clinical Densitometry http://www.iscd.org 3. National Osteoporosis Foundation http://www.nof.org Electronically Signed: Michael Santiago, at 13:18 EST , Service support ,
--- NOTE | 2019-07-28 15:10 | MRI_ITS ---
STUDY: MRI THORACIC SPINE WITH AND WITHOUT CONTRAST REASON FOR EXAM: Female, 73 years old. Back pain. Stenosis. Palpable lump. TECHNIQUE: IV Dotarem 10 was administered for the contrast portion of the examination. Standard sagittal and axial T1 and T2-weighted imaging was obtained. Postcontrast axial and sagittal images were obtained. COMPARISON: May 09, 2016. FINDINGS: No abnormal suspect some expected contrast enhancement. No discrete lesion at the region of skin marker (likely palpable hardware). Exaggerated thoracic kyphosis. Minimal levoscoliosis. No abnormal cord signal. Conus medullaris terminates normally at the T12-L1 level. Multilevel endplate spondylosis predominating at T7-8 through T12-L1. No spondylolisthesis. Mild neural foraminal narrowing at the T6-7 through T9-10 levels. Partially visualized posterior surgical fixation at the T12-L2 levels. Multilevel shallow disc bulges/shallow protrusions at the T2-3, T5-6, T6-7, T7-8, T8-9, T9-10, T10-11 and T11-12 levels with minimal central canal narrowing. Normal visualized upper abdomen. Normal mediastinum. Normal aorta. Minimal paraspinal muscle atrophy. MRI/Spine Thoracic W/WO Contrast IMPRESSION: No abnormal/unexpected contrast enhancement No discrete lesion identified (likely palpable hardware) No abnormal cord signal Multilevel intervertebral disc disease with minimal central canal narrowing Exaggerated kyphosis with minimal levoscoliosis and moderate mid/lower thoracic spine osteoarthritis Uncomplicated posterior spinal fixation hardware Electronically Signed: Cong Hernandez DO at 8:59 EST Tel , Service support ,
--- NOTE | 2019-07-28 15:10 | MRI_ITS ---
STUDY: MRI LUMBAR SPINE WITH AND WITHOUT CONTRAST REASON FOR EXAM: Female, 73 years old. Back pain stenosis. Lump. TECHNIQUE: Standardized fat and water weighted pulse sequences were obtained in the sagittal and axial planes. IV Dotarem 10 was administered for the contrast portion of the examination. COMPARISON: February 20, 2017 FINDINGS: No abnormal/unexpected contrast enhancement. No discrete lesion identified. Exaggerated lumbar lordosis. Minimal levoscoliosis. Posterior spinal fixation extending from the T12-L5 levels absent right-sided fusion at the L3 level. Extensive multilevel laminectomy. Conus medullaris terminates normally at the T12-L1 level. Paraspinal muscle atrophy with scar. Normal retroperitoneum. Right renal cyst. Normal aorta. Sacrum intact. No acute fracture, dislocation or osseous destruction. T12-L1: Moderate endplate spondylosis. Disc bulge with disc height loss. Normal bilateral facet joints. Normal central canal and bilateral lateral recesses. Normal bilateral intervertebral neural foramina. L1-2: Moderate end plate spondylosis. Disc bulge, asymmetric to left, without central canal narrowing. Facet joint arthrosis/bone graft. Left lateral recess narrowing without impingement. Normal bilateral intervertebral neural foramina. L2-3: Mild endplate spondylosis. Disc desiccation. Facet joint arthrosis/bone graft. Normal central canal and bilateral lateral recesses. Normal bilateral intervertebral neural foramina. L3-4: Normal endplates. Disc desiccation. Facet joint arthrosis/bone graft. Normal central canal and bilateral lateral recesses. Normal bilateral intervertebral neural foramina. L4-5: Moderate endplate spondylosis. Disc bulge with disc height loss. Facet joint arthrosis/bone graft. Normal central canal and bilateral lateral recesses. Right neural foraminal narrowing without impingement. Grade 1 spondylolisthesis. L5-S1: Normal endplates. Disc bulge with severe central canal narrowing. Facet joint arthrosis/bone graft. Bilateral lateral recess narrowing with impingement. Neural foraminal narrowing with impingement on the left. Grade 1 spondylolisthesis. MRI/Spine Lumbar W/WO Contrast IMPRESSION: No abnormal/unexpected contrast enhancement No discrete lesion identified (likely palpable hardware) Multilevel intervertebral disc disease with severe central canal narrowing at L5-S1 Multilevel neural foraminal narrowing with impingement of the left L5 nerve root Exaggerated lumbar lordosis, minimal levoscoliosis and moderate/severe osteoarthritis Electronically Signed: Cong Hernandez DO at 9:11 EST Tel , Service support ,
== END ==
PROVIDERS: Family Provider Family Medicine; PCP Family Medicine; Referring Provider Nurse Practitioner; Visit Provider Nurse Practitioner
DX: M81.0 Age-related osteoporosis without current pathological fracture (principal); M48.061 Spinal stenosis, lumbar region without neurogenic claudication; M43.14 Spondylolisthesis, thoracic region; M51.34 Other intervertebral disc degeneration, thoracic region
CPT/HCPCS: 72157; 72158; 77080; 77081; A9575

== ENCOUNTER → 2019-08-03 14:42 | Outpatient (CLI) | payer MEDICARE, SELFPAY ==
--- NOTE | 2019-08-03 14:45 | BI_ITS ---
MAMMOGRAPHY - BILATERAL SCREENING 3-D TOMOSYNTHESIS REASON FOR EXAM: Female, 73 years old. Routine annual screening examination. PERTINENT HISTORY: History of left stereotactic biopsy in 2010. TECHNIQUE: 2-D mammograms and 3-D Tomosynthesis of the breast (s) were performed. CAD was performed. COMPARISON: July 21, 2018 FINDINGS: The breast composition is almost entirely fat. Scattered benign calcifications are seen. No dense spiculated masses or suspicious microcalcifications are identified. No architectural distortion is identified. There is no skin thickening or retraction. Stable lymph nodes in both axillae. There has been no significant change since the prior study. BI/SCREEN MAMM (CAD) W/YENY BILAT IMPRESSION: No mammographic signs of malignancy. Routine yearly mammograms recommended. ASSESSMENT CATEGORY: BIRADS Category 2: Benign. A letter regarding these results will be sent to the patient by the facility within 30 days. FOLLOW UP RECOMMENDATION: Yearly follow up mammogram recommended. (A) Approximately 10% of breast cancers are not detected by mammography. A normal mammogram should not delay biopsy of a clinically suspicious abnormality. Electronically Signed: Angel Luis Pfeiffer MD at 17:37 EST , Service support ,
== END ==
PROVIDERS: Family Provider Family Medicine; PCP Family Medicine; Referring Provider Family Medicine; Visit Provider Family Medicine
DX: Z12.31 Encounter for screening mammogram for malignant neoplasm of breast (principal)
CPT/HCPCS: 77063; 77067

== ENCOUNTER → 2019-09-21 09:16 | Outpatient (CLI) | payer MEDICARE, SELFPAY ==
[2019-09-21 08:48] VITALS: BMI 22.4
[2019-09-21 10:47] LABS: T4 Free Direct 1.11 ng/dL (0.76-1.46); Thyroid Stim Hormone (TSH) 5.41 uIU/mL (0.358-3.74)
[2019-09-21 10:50] LABS: PTHIN 41.2 pg/mL (18.4-80.1); Vitamin D,25 Hydroxy 81.7 ng/mL (29.95-100.01)
[2019-09-22 09:50] LABS: Thyroid Peroxidase AB 98 IU/mL (0-34)
== END ==
PROVIDERS: Family Provider Family Medicine; PCP Family Medicine; Referring Provider Internal Medicine Endocrinology, Diabetes & Metabolism; Visit Provider Internal Medicine Endocrinology, Diabetes & Metabolism
DX: M81.0 Age-related osteoporosis without current pathological fracture (principal); R06.00 Dyspnea, unspecified; R94.6 Abnormal results of thyroid function studies; E55.9 Vitamin D deficiency, unspecified
CPT/HCPCS: 36415; 82306; 83970; 84439; 84443; 86376

== ENCOUNTER → 2019-10-21 | Outpatient (CLI) | payer MEDICARE, SELFPAY ==
[2019-09-21 08:48] VITALS: BMI 22.4
[2019-10-21] MEDS: DENOSUMAB 60 MG/ML ML SQ (13:50)
[2019-10-21 13:53] VITALS: BP 139/82; PULSE 79; RESP 16; TEMP 36.2; BMI 23.4
== END | disposition home or self-care (01) ==
LOC: MEDOUTP 13:39
PROVIDERS: PCP Family Medicine; Referring Provider Internal Medicine Endocrinology, Diabetes & Metabolism; Visit Provider Internal Medicine Endocrinology, Diabetes & Metabolism
DX: M81.0 Age-related osteoporosis without current pathological fracture (principal)
CPT/HCPCS: 96372; J0897

== ENCOUNTER → 2020-03-07 | Outpatient (CLI) | payer MEDICARE, SELFPAY ==
[2020-03-07 13:50] VITALS: BMI 21.9
[2020-03-07 16:07] LABS: Absolute Lymphocyte Count 1.32 X10^3/uL (0.83-4.51); Absolute Neutrophil Count 4.5 X10^3/uL (2.0-7.7); Basophil# 0.05 X10^3/uL; Basophil% 0.7 % (0-1); Eosinophil# 0.18 X10^3/uL; Eosinophils% 2.7 % (0-5); Hematocrit 44.1 % (37-47); Hemoglobin 15.1 g/dL (12.0-15.0); Lymphocyte # 1.32 X10^3/ul (4.0); Lymphocyte % 19.6 % (19-41); Mean Corp Hgb Conc 34.2 g/dL (32-36); Mean Corpuscular Hgb 35.4 pg (27.0-32.0); Mean Corpuscular Volume 103.3 fL (81-99); Mean Platelet Vol. 11.8 fl (6.2-12.0); Monocyte# 0.67 X10^3/uL; NRBC Flagged by Analyzer 0 % (0-5); Neutrophil # 4.49 X10^3/uL (2.7-7.7); Neutrophil % 66.7 % (47-70); Platelet Count 243 K/mm3 (150-450); RBC Distribution Width CV 13.2 % (11.6-14.6); RBC Distribution Width SD 48.9 fl (35.1-43.9); Red Blood Count 4.27 M/mm3 (4.2-5.4); White Blood Count 6.7 K/mm3 (4.4-11.0)
[2020-03-07 16:09] LABS: Vitamin B12 519 pg/mL (211-911); Vitamin D,25 Hydroxy 126.4 ng/mL
[2020-03-07 16:29] LABS: Ferritin 53 ng/mL (8-252); T4 Free Direct 1.17 ng/dL (0.76-1.46); Thyroid Stim Hormone (TSH) 2.21 uIU/mL (0.358-3.74)
== END | disposition home or self-care (01) ==
LOC: BIMLAB 14:16
PROVIDERS: PCP Family Medicine; Referring Provider Internal Medicine Endocrinology, Diabetes & Metabolism; Visit Provider Internal Medicine Endocrinology, Diabetes & Metabolism
DX: E55.9 Vitamin D deficiency, unspecified (principal); E61.1 Iron deficiency; M81.0 Age-related osteoporosis without current pathological fracture; R53.81 Other malaise; R53.83 Other fatigue; R07.81 Pleurodynia; R06.00 Dyspnea, unspecified
CPT/HCPCS: 36415; 82306; 82607; 82728; 84439; 84443; 85025

== ENCOUNTER → 2020-04-19 13:21 | Outpatient (CLI) | payer MEDICARE, SELFPAY ==
[2019-10-21 13:53] VITALS: BMI 23.4
[2020-03-14 08:10] VITALS: BMI 23.4
[2020-04-19 13:58] VITALS: BP 142/87; PULSE 79; RESP 18; TEMP 37; O2SAT 95; BMI 20.1
[2020-04-19] MEDS: DENOSUMAB 60 MG/ML SQ (14:06)
[2020-04-19 16:55] LABS: Vitamin D,25 Hydroxy 88.9 ng/mL
== END ==
PROVIDERS: PCP Family Medicine; Referring Provider Internal Medicine Endocrinology, Diabetes & Metabolism; Visit Provider Internal Medicine Endocrinology, Diabetes & Metabolism
DX: M81.0 Age-related osteoporosis without current pathological fracture (principal)
CPT/HCPCS: 36415; 82306; 96372; J0897

== ENCOUNTER → 2020-04-29 | Outpatient (CLI) | payer MEDICARE, SELFPAY ==
[2020-03-14 08:10] VITALS: BMI 23.4
[2020-04-23 20:41] VITALS: BMI 20.1
--- NOTE | 2020-04-29 10:10 | MRI_ITS ---
STUDY: MRI CERVICAL SPINE WITHOUT CONTRAST REASON FOR EXAM: Female, 74 years old. Gait instability, odontoid fracture TECHNIQUE: Standardized fat and water weighted pulse sequences were obtained in the sagittal and axial planes. COMPARISON: None FINDINGS: Craniocervical junction is aligned. There is a difficult to visualize base of odontoid fracture with extensive surrounding reactive inflammatory change. There is multilevel grade 1 anterolisthesis of C3 on C4, C4 and C5 and C6 on C7, all less than 3 mm with reversed cervical lordosis. Diffuse marrow is normal with mild endplate degeneration. Paraspinous soft tissues are intact. There is multilevel mild spondylotic thecal sac stenosis without cord compression. There are multilevel mild foraminal stenoses. Spinal cord is normal in size and signal with mild shaped deviation around reversed cervical lordosis. MRI/Spine Cervical (Routine) IMPRESSION: 1. Presumably chronic base of odontoid fracture. Refer to CT for definitive assessment. 2. Multilevel spondylotic malalignment. 3. No neural compression. Electronically Signed: Rikki Felder, at 17:53 EDT Tel , Service support ,
== END | disposition home or self-care (01) ==
LOC: MRI 10:06
PROVIDERS: PCP Family Medicine
DX: S12.110A Anterior displaced Type II dens fracture, initial encounter for closed fracture (principal); R26.81 Unsteadiness on feet
CPT/HCPCS: 72141

== ENCOUNTER → 2020-09-22 13:12 | Outpatient (CLI) | payer MEDICARE, SELFPAY ==
[2020-06-28 10:06] VITALS: BMI 20.6
--- NOTE | 2020-09-22 13:15 | BI_ITS ---
MAMMOGRAPHY - BILATERAL SCREENING REASON FOR EXAM: Female, 75 years old. Routine annual screening examination. PERTINENT HISTORY: Non-contributory. Remote left stereotactic breast biopsy. TECHNIQUE: Digital bilateral breast yeny (3D mammographic acquisition) in the CC and MLO projections. 2-D mediolateral oblique (MLO) and craniocaudad (CC) views of both breasts were obtained. CAD: Full Field Digital Mammography with Computer Added Detection was performed. COMPARISON: Comparison is made with prior examination dated 08/03/2019 and 07/21/2018. FINDINGS: Breast Composition: The breasts are almost entirely fatty. There are no dominant masses or suspicious calcifications. A tissue clip marker is once again seen in the upper outer quadrant of the left breast. Stable benign-appearing left axillary lymph nodes. Stable bilateral secretory calcifications. No other significant abnormalities are identified. There has been no significant change since the prior study. BI/SCRN MAMM (CAD)W/YENY BILAT IMPRESSION: Stable bilateral screening mammogram. Yearly follow-up mammogram recommended. (A) ASSESSMENT CATEGORY: BIRADS Category 2: Benign. A letter regarding these results will be sent to the patient by the facility within 30 days. Approximately 10% of breast cancers are not detected by mammography. A normal mammogram should not delay biopsy of a clinically suspicious abnormality. [id number] Electronically Signed: Michael Santiago, at 13:57 EST , Service support ,
== END ==
PROVIDERS: PCP Family Medicine; Referring Provider Family Medicine; Visit Provider Family Medicine
DX: Z12.31 Encounter for screening mammogram for malignant neoplasm of breast (principal)
CPT/HCPCS: 77063; 77067

== ENCOUNTER → 2020-10-03 10:41 | Outpatient (CLI) | payer MEDICARE, SELFPAY ==
[2020-10-03 10:01] VITALS: BMI 20.6
[2020-10-03 12:43] LABS: Absolute Lymphocyte Count 1.29 X10^3/uL (0.83-4.51); Absolute Neutrophil Count 4.7 X10^3/uL (2.0-7.7); Basophil# 0.06 X10^3/uL; Basophil% 0.9 % (0-1); Eosinophils% 2.9 % (0-5); Hematocrit 47.3 % (37-47); Hemoglobin 15.5 g/dL (12.0-15.0); Lymphocyte # 1.29 X10^3/ul (4.0); Lymphocyte % 18.8 % (19-41); Mean Corp Hgb Conc 32.8 g/dL (32-36); Mean Corpuscular Hgb 33.7 pg (27.0-32.0); Mean Corpuscular Volume 102.8 fL (81-99); Mean Platelet Vol. 11.9 fl (6.2-12.0); Monocyte# 0.58 X10^3/uL; Monocyte% 8.4 % (0-10); NRBC Flagged by Analyzer 0 % (0-5); Neutrophil # 4.74 X10^3/uL (2.7-7.7); Neutrophil % 68.9 % (47-70); Platelet Count 258 K/mm3 (150-450); RBC Distribution Width CV 12.9 % (11.6-14.6); RBC Distribution Width SD 48.6 fl (35.1-43.9); White Blood Count 6.9 K/mm3 (4.4-11.0)
[2020-10-03 12:58] LABS: Vitamin B12 609 pg/mL (211-911)
[2020-10-03 13:34] LABS: Vitamin D,25 Hydroxy 59.7 ng/mL
[2020-10-03 14:00] LABS: ALB/GLOB Ratio 1.1 RATIO (0.9-2.4); AST(SGOT) 20 U/L (15-37); Alanine Aminotransfer ALT/SGPT 22 U/L (13-56); Albumin, Serum 3.9 g/dL (3.2-5.0); Alkaline Phosphatase 86 U/L (45-117); Anion Gap 7 (5-15); BUN 20 mg/dL (7-18); BUN/Creat Ratio 19.2 RATIO (10-20); Calcium,Total 9.6 mg/dL (8.5-10.1); Chloride 104 mmol/L (98-107); Creatinine, Serum 1.04 mg/dL (0.55-1.02); EST Glomerular Filtration Rate 55 mL/min (>60); Est Glom Filt Rate - Afr Amer 66 mL/min (>60); Globulin 3.4 g/dL (2.2-4.2); Glucose 100 mg/dL (74-106); Potassium 4.8 mmol/L (3.5-5.1); Protein, Total 7.3 g/dL (6.4-8.2); Sodium Level 139 mmol/L (136-145); Thyroid Stim Hormone (TSH) 3.45 uIU/mL (0.358-3.74)
== END ==
PROVIDERS: PCP Family Medicine; Referring Provider Internal Medicine Endocrinology, Diabetes & Metabolism; Visit Provider Internal Medicine Endocrinology, Diabetes & Metabolism
DX: E03.9 Hypothyroidism, unspecified (principal); E55.9 Vitamin D deficiency, unspecified; M81.0 Age-related osteoporosis without current pathological fracture; R53.81 Other malaise; R53.83 Other fatigue
CPT/HCPCS: 36415; 80053; 82306; 82607; 84443; 85025

== ENCOUNTER → 2020-10-18 13:33 | Outpatient (CLI) | payer MEDICARE, SELFPAY ==
[2020-03-14 08:10] VITALS: BMI 23.4
[2020-10-03 10:01] VITALS: BMI 20.6
[2020-10-18 14:00] VITALS: BP 157/88; PULSE 75; RESP 16; TEMP 35.7; O2SAT 100; BMI 22.9
[2020-10-18] MEDS: DENOSUMAB 60 MG/ML SQ (14:05)
== END ==
PROVIDERS: PCP Family Medicine; Referring Provider Internal Medicine Endocrinology, Diabetes & Metabolism; Visit Provider Internal Medicine Endocrinology, Diabetes & Metabolism
DX: M81.0 Age-related osteoporosis without current pathological fracture (principal)
CPT/HCPCS: 96372; J0897

== ENCOUNTER 2021-01-24 14:06 | Inpatient (IN) | payer MEDICARE, SELFPAY ==
[2020-10-31 14:07] VITALS: BMI 23.3
[2021-01-24] VITALS (11 sets, daily range): BP systolic 134–170; BP diastolic 81–95; PULSE 70–88; RESP 16–24; TEMP 36.7–36.9; O2SAT 95–97; BMI 21.4; BMI 22.8
--- NOTE | 2021-01-24 14:21 | EKG12_ITS ---
Test Reason : CP Blood Pressure : / mmHG Vent. Rate : 083 BPM Atrial Rate : 083 BPM P-R Int : 150 ms QRS Dur : 084 ms QT Int : 380 ms P-R-T Axes : 049 -12 064 degrees QTc Int : 446 ms Normal sinus rhythm Low voltage QRS Borderline ECG When compared with ECG of 11-MAR-2018 05:53, Nonspecific T wave abnormality now evident in Anterior leads Confirmed by SHIVANI CARBAJAL, DOROTEO ([id number]), purchasing expeditor DONNIE GUERRIER ([id number]) on 01/27/2021 11:30:35 A M Referred By: MATT Confirmed By:ATIYA PARRISH MD
--- NOTE | 2021-01-24 14:27 | EDS_ITS ---
HPI History of Present Illness Chief Complaint: Chest Pain Narrative Narrative: 75-year-old female presents with concern for chest pain and shortness of breath. States that she became more short of breath over the past 2 weeks. States that she is having a deep intermittent chest pain. Describes it as aching and retrosternal. Nonradiating. States that she is more short of breath on exertion. Was awoken 3 nights ago when she felt like she could not catch her breath in her sleep. Denies any fever, chills, cough. Patient was at physical therapy today when she was telling her therapist she was becoming more short of breath and having chest pain and sent in the emergency department for further evaluation. Denies any history of coronary artery disease. Recent Illness/Hospitalization: No CVD Risk Factors: Positive for Hypertension PE Risk Factors: Negative for Recent Travel/Surgery, Recent Immobilization, Prior DVT or PE, Cancer and OCP + Smoking + >/=35 PFSH PFSH Medical History (Updated 01/24/21 @ 15:[address] Obinna Redman, DO) Benign hypertension Closed odontoid fracture GERD (gastroesophageal reflux disease) HTN (hypertension) Osteoarthritis Osteoporosis Sternum fx Vertebral fracture, osteoporotic Home Medications bupropion HCl 150 mg PO BID 12/28/13 [History Last Taken 03/10/18] omeprazole 20 mg PO QHS 12/28/13 [History Last Taken 03/09/18] levothyroxine 50 mcg tablet 50 mcg PO DAILY #90 tab 09/12/20 [Rx Last Taken Unknown] lisinopril 10 mg tablet 10 mg PO DAILY tab 10/03/20 [History Last Taken Unknown] cyclosporine 0.05 % eye drops in a dropperette ea OPHTHALMIC 10/31/20 [History Last Taken Unknown] fluticasone propionate 44 mcg/actuation HFA aerosol inhaler 2 puff INHALATION PRN PRN 10/31/20 [History Last Taken Unknown] Lactobacillus acidophilus [Probiotic Acidophilus] 500 mmu cells PO DAILY 0 01/24/21 [History Last Taken Unknown] aspirin 81 mg PO DAILY 01/24/21 [History Last Taken Unknown] buspirone 15 mg PO TID 01/24/21 [History Last Taken Unknown] diphenhydramine HCl 25 mg PO QHS 01/24/21 [History Last Taken Unknown] trazodone 50 mg PO DAILY 01/24/21 [History Last Taken Unknown] Allergy/AdvReac Type Severity Reaction Status Date / Time codeine Allergy Swelling Verified 01/24/21 14:09 Surgical History Hx of spinal surgery Social History Smoking Status: Never smoker alcohol intake: never ROS ROS ED Constitutional Constitutional ED: Denies chills, fever(s) or sweats Eyes Eyes: Denies blurry vision, change in vision or diplopia ENT ENT ED: Denies rhinorrhea or sore throat Cardiovascular Cardiovascular: Reports chest pain; Denies orthopnea, palpitations or racing heartbeat Respiratory/Chest Respiratory/Chest: Reports dyspnea and dyspnea on exertion; Denies cough, orthopnea or sputum Gastrointestinal Gastrointestinal: Denies abdominal pain, constipation, diarrhea, melena, nausea or vomiting Genitourinary Genitourinary ED: Denies dysuria, hematuria or urinary frequency Musculoskeletal Musculoskeletal: Denies arthralgias, myalgias or neck pain Integumentary Denies rash Neurologic Neurologic: Denies headache(s), paresthesias or weakness Psychiatric Psychiatric: Denies anxiety or depression Hematologic/Lymphatic Hematologic/Lymphatic: Denies easy bleeding or easy bruising Allergic/Immunologic Allergic/Immunologic ED: Denies mouth swelling or tongue swelling EXAM Physical Exam Const Vital Signs: 01/24/21 14:07 01/24/21 14:14 01/24/21 14:27 Temperature 98.2 F Temperature Source Temporal Pulse Rate 88 Respiratory Rate 16 Respiratory Effort Short of Breath Respiratory Pattern Normal Blood Pressure 154/93 H Blood Pressure Mean 113 Pulse Ox 97 96 Oxygen Delivery Method Room Air Room Air 01/24/21 15:41 Temperature Temperature Source Pulse Rate 74 Respiratory Rate 24 H Respiratory Effort Respiratory Pattern Blood Pressure Blood Pressure Mean Pulse Ox 97 Oxygen Delivery Method Room Air Positive well nourished and well developed General Appearance ED: well developed HEENT Reports TM's clear and moist mucous membranes normocephalic and atraumatic Tympanic Membrane ED: Yes TM's clear Eyes PERRL and EOMs intact bilaterally Neck no lymphadenopathy, supple and no JVD Chest Wall inspection of chest normal Resp normal respiratory effort and clear to auscultation bilaterally Cardio regular rate, S1 normal heart sound, S2 normal heart sound and no murmurs Peripheral Pulses: pulses 2+ throughout GI soft to palpation, non-tender and non-distended Back/Spine no CVA tenderness and no thoracic nor lumbar tenderness Extremity normal to inspection General Extremety ED: Negative for edema or tenderness General Extremity: Negative for edema Neuro oriented x3, CN's II-XII intact bilaterally and no sensory deficits noted Sensorium / Orientation: alert Motor Exam: strength 5/5 throughout Psych mental status grossly normal Skin no rashes or lesions noted MDM MDM MDM Narrative Medical decision making narrative: Patient appears well nontoxic. Vital signs within normal limits. No current chest pain at this time. EKG nonspecific without evidence of acute ischemia. Chest x-ray interpreted by myself shows no evidence of cardiomegaly, infiltrate, mediastinal widening. Radiology concurs. Patient was given aspirin. Patient does have indeterminate troponin of 0.108 as well as an elevated BNP of 445.1. Spoke with investor relations analyst on-call Dr. Lee who was agreeable with heparin drip. Spoke with the hospitalist who is agreeable with admission. Patient and family were also agreeable. Admitted in stable condition for further treatment and evaluation. Lab Data Labs: Laboratory Results - last 24 hr 01/24/21 01/24/21 01/24/21 14:26 14:26 14:26 WBC 6.2 RBC 4.19 L Hgb 14.0 Hct 41.5 MCV 99.0 MCH 33.4 H MCHC 33.7 RDW Std Deviation 45.6 H RDW Coeff of Yasmany 12.6 Plt Count 212 MPV 11.3 Immature Gran % (Auto) 0.200 Neut % (Auto) 70.7 H Lymph % (Auto) 18.6 L Meeker % (Auto) 8.1 Eos % (Auto) 1.6 Baso % (Auto) 0.8 Absolute Neuts (auto) 4.4 Absolute Lymphs (auto) 1.15 Nucleated RBC % 0 Sodium 136 Potassium 3.9 Chloride 104 Carbon Dioxide 26.0 Anion Gap 6 BUN 14 Creatinine 1.11 H Estim Creat Clear Calc 30.49 Est GFR (MDRD) Af Amer 61 Est GFR (MDRD) Non-Af 51 L BUN/Creatinine Ratio 12.6 Glucose 142 H Calcium 9.1 Troponin I 0.108 H B-Natriuretic Peptide 445.1 H Radiography Chest X-Ray - ED: 1 View, Read by ED Physician, Read by Radiologist and Normal Diagnostic Testing: Radiology Impression Chest X-Ray 01/24/21 14:40 IMPRESSION: No acute pulmonary process Electronically Signed: Kit Silver MD at 14:56 EDT , Service support , Rhythm Strip Rhythm Strip: Sinus Rhythm Rate: 83 Ectopy: None EKG Initial EKG: Attestation: I personally reviewed and interpreted this EKG as follows: Interpretation: Sinus Rhythm and No Acute Injury Pattern Comments: Normal sinus rhythm at 83 bpm. NH interval of 150 ms. QTC of [address] changes. Discharge Plan Triage Chief Complaint: Chest Pain ED Provider: Obinna Redman Dx/Rx/DC Orders Clinical Impression: Acute non-ST elevation myocardial infarction (NSTEMI) Prescriptions: No Action fluticasone propionate 44 mcg/actuation HFA aerosol inhaler 2 puff INHALATION PRN PRN (Reason: Shortness Of Breath) RF: 0 cyclosporine 0.05 % dropperette OPHTHALMIC RF: 0 lisinopril 10 mg tablet 10 mg PO DAILY RF: 0 bupropion HCl 150 MG tablet extended release 12 hr 150 mg PO BID RF: 0 omeprazole 20 MG capsule 20 mg PO QHS RF: 0 trazodone 50 mg Tablet 50 mg PO DAILY RF: 0 diphenhydramine HCl 25 mg Capsule 25 mg PO QHS RF: 0 aspirin 81 mg Tablet 81 mg PO DAILY RF: 0 Probiotic Acidophilus 1.5 mg (250 million cell) Capsule 500 mmu cells PO DAILY RF: 0 buspirone 15 mg Tablet 15 mg PO TID RF: 0 levothyroxine 50 mcg tablet 50 mcg PO DAILY Qty: 90 RF: 3 Primary Care Provider: Peyton Goldberg Referrals: Peyton Goldberg MD [Primary Care Provider] - Disposition Disposition: Acute Care Hospital [facility]
[2021-01-24 14:35] LABS: Absolute Lymphocyte Count 1.15 X10^3/uL (0.83-4.51); Absolute Neutrophil Count 4.4 X10^3/uL (2.0-7.7); Basophil# 0.05 X10^3/uL; Basophil% 0.8 % (0-1); Eosinophils% 1.6 % (0-5); Hematocrit 41.5 % (37-47); Lymphocyte # 1.15 X10^3/ul (0.83-4.51); Lymphocyte % 18.6 % (19-41); Mean Corp Hgb Conc 33.7 g/dL (32-36); Mean Corpuscular Hgb 33.4 pg (27.0-32.0); Mean Platelet Vol. 11.3 fl (6.2-12.0); Monocyte% 8.1 % (0-10); NRBC Flagged by Analyzer 0 % (0-5); Neutrophil # 4.38 X10^3/uL (2.7-7.7); Neutrophil % 70.7 % (47-70); Platelet Count 212 K/mm3 (150-450); RBC Distribution Width CV 12.6 % (11.6-14.6); RBC Distribution Width SD 45.6 fl (35.1-43.9); Red Blood Count 4.19 M/mm3 (4.2-5.4); White Blood Count 6.2 K/mm3 (4.4-11.0)
[2021-01-24] MEDS: Aspirin 81 MG TAB.CHEW 324 MG PO (14:40)
--- NOTE | 2021-01-24 14:40 | RAD_ITS ---
STUDY: X-RAY CHEST REASON FOR EXAM: Female, 75 years old. Chest pain TECHNIQUE: Single AP portable view of the chest. COMPARISON: 2018 FINDINGS: EKG leads overlie the chest The lungs are clear and expanded. There is no demonstrated pleural abnormality. Normal size heart. Normal mediastinum and constantine. Normal visualized pulmonary arteries. Normal visualized aortic arch and descending thoracic aorta. Degenerative bony changes noted, surgical hardware in the lower thoracic and upper lumbar spine and free of complication. Replaced right glenohumeral joint free of complication, degenerative arthrosis noted in the left shoulder. There is no demonstrated abnormality of the visualized soft tissue structures of the upper abdomen. RAD/Chest 1 View (Portable) IMPRESSION: No acute pulmonary process Electronically Signed: Kit Silver MD at 14:56 EDT , Service support ,
[2021-01-24 14:57] LABS: BNP,B-Type NATRIURETIC PEPTIDE 445.1 pg/mL (0-100)
[2021-01-24 14:59] LABS: Anion Gap 6 (5-15); BUN 14 mg/dL (7-18); BUN/Creat Ratio 12.6 RATIO (10-20); Calcium,Total 9.1 mg/dL (8.5-10.1); Chloride 104 mmol/L (98-107); Creatinine, Serum 1.11 mg/dL (0.55-1.02); EST Glomerular Filtration Rate 51 mL/min (>60); Est Glom Filt Rate - Afr Amer 61 mL/min (>60); Estimated Creatinine Clearance 30.49 ml/min; Glucose 142 mg/dL (74-106); Potassium 3.9 mmol/L (3.5-5.1); Sodium Level 136 mmol/L (136-145)
[2021-01-24] MEDS: Heparin Injection (Vial) 5,000 UNIT/ML VIAL 3500 UNIT IV (15:53)
[2021-01-24] MEDS: HEPARIN/D5w 25,000 UNITS 25,000 UNITS/250 ML IV.SOLN. 0.1 UNITS IV (15:53)
--- NOTE | 2021-01-24 16:00 | HP.PCM.HOS_ITS ---
HPI - General HPI Narrative ELIAN ALVARADO, is a 75 F with a past medical history as outlined who presents with a complaint of shortness of breath for 2 weeks and chest pain for 1 day. Patient states she has been having shortness of breath for 2 weeks and this is gradually been worse today. Shortness of breath is worsened by the slightest exertion and seizing when she takes her shower and comes all to the bathroom, she feels short of breath due to the exertion from breathing. She had chest pain about a week ago which woke her up from sleep and was retrosternal and pressure-like. Chest pain did not radiate. She did have chest pain again today as well as shortness of breath when she went to outpatient therapy for an osteoporotic vertebral fracture. She therefore decided to come into the ED. She says she has had a stress test done in the past and she also had an echo done and as far as she remembers, the stress test was normal but does not remember much about the echo. She denied any lightheadedness or dizziness, palpitations, nausea vomiting or diarrhea. Review of stents otherwise negative. Vitals in the ED showed blood pressure 170/95 with pulse rate of 74, respiratory rate of 16 and temperature of 98.4 Fahrenheit. CBC showed hemoglobin of 14 with WBC of 6.2 and platelets of 212. Chemistry shows sodium of 136 with potassium of 3.9 and creatinine of 1.11. EKG showed no acute ST changes and initial troponin was 0.1. She has been admitted to be managed for non-STEMI. ED doctor spoke to cardiology and she was started on heparin drip. [facility] Medical History (Updated 01/24/21 @ 15:[address] Obinna Redman, ) Benign hypertension Closed odontoid fracture GERD (gastroesophageal reflux disease) HTN (hypertension) Osteoarthritis Osteoporosis Sternum fx Vertebral fracture, osteoporotic Home Medications bupropion HCl 150 mg PO BID 12/28/13 [History Last Taken 01/24/21] omeprazole 20 mg PO QHS 12/28/13 [History Last Taken 01/23/21] levothyroxine 50 mcg tablet 50 mcg PO DAILY #90 tab 09/12/20 [Rx Last Taken 01/24/21] lisinopril 10 mg tablet 10 mg PO DAILY tab 10/03/20 [History Last Taken ] fluticasone propionate 44 mcg/actuation HFA aerosol inhaler 2 puff INHALATION PRN PRN 10/31/20 [History Last Taken 01/24/21] Lactobacillus acidophilus [Probiotic Acidophilus] 500 mmu cells PO DAILY 01/24/21 [History Last Taken 01/24/21] aspirin [Aspirin Low Dose] 81 mg PO DAILY 01/24/21 [History Last Taken 01/23/21] buspirone 15 mg PO TID 01/24/21 [History Last Taken 01/24/21] nabumetone 750 mg PO BID 01/24/21 [History Last Taken 01/24/21] trazodone 50 mg PO DAILY 01/24/21 [History Last Taken 01/23/21] Allergy/AdvReac Type Severity Reaction Status Date / Time codeine Allergy swelling Verified 01/24/21 16:24 of face Surgical History Hx of spinal surgery Social History Smoking Status: Never smoker alcohol intake: never ROS Constitutional Constitutional: Denies anorexia, change in weight, chills, fatigue, fever(s), malaise or weakness Eyes Eyes: Denies change in vision ENT HEENT: Denies abnormal hearing, ear pain or sore throat Cardiovascular Cardiovascular: Reports chest pain and dyspnea on exertion; Denies claudication, edema, lightheadedness, orthopnea, palpitations, paroxysmal nocturnal dyspnea, rapid heart rate or syncope Respiratory/Chest Respiratory/Chest: Reports shortness of breath with exertion; Denies cough, dyspnea, excessive phlegm production, hemoptysis, productive cough or shortness of breath at rest Gastrointestinal Gastrointestinal: Denies abdominal pain, coffee ground emesis, constipation, diarrhea, dyspepsia, hematemesis, hematochezia, nausea or vomiting Genitourinary Genitourinary: Denies burning urination or dysuria Musculoskeletal Musculoskeletal: Denies arthralgias, joint stiffness or joint swelling Neurologic Neurologic: Denies focal weakness Psychiatric Psychiatric: Denies anxiety or depression Vital Signs Vital Signs Vital Signs: 01/24/21 14:07 01/24/21 14:14 01/24/21 14:27 Temperature 98.2 F Temperature Source Temporal Pulse Rate 88 Respiratory Rate 16 Respiratory Effort Short of Breath Respiratory Pattern Normal Blood Pressure 154/93 H Blood Pressure Mean 113 Pulse Ox 97 96 Oxygen Delivery Method Room Air Room Air 01/24/21 15:41 01/24/21 15:55 Temperature 98.4 F Temperature Source Temporal Pulse Rate 74 74 Respiratory Rate 24 H 16 Respiratory Effort Respiratory Pattern Blood Pressure 170/95 H Blood Pressure Mean 120 Pulse Ox 97 97 Oxygen Delivery Method Room Air Room Air Physical Exam Const alert, oriented x3 and no apparent distress General Appearance: cooperative HEENT normocephalic, head/scalp atraumatic, hearing grossly normal bilaterally and moist oral mucous membranes Eyes EOMs intact bilaterally and conjunctivae normal Neck no lymphadenopathy, supple, no JVD and no carotid bruits Resp normal respiratory effort, no retractions and no use of accessory muscles Cardio regular rate, regular rhythm, S1 normal heart sound, S2 normal heart sound and no murmurs Extremity normal to inspection, full ROM and no clubbing, cyanosis or edema Peripheral Pulses: Yes pulses 2+ throughout Skin no rashes or lesions noted Neuro oriented x3 Sensorium / Orientation: awake, alert and oriented to person Psych Mood & Affect: anxious Lab / Micro Data Result Diagrams: 01/24/21 14:26 01/24/21 14:26 Labs: Laboratory Results - last 24 hr 01/24/21 01/24/21 01/24/21 14:26 14:26 14:26 WBC 6.2 RBC 4.19 L Hgb 14.0 Hct 41.5 MCV 99.0 MCH 33.4 H MCHC 33.7 RDW Std Deviation 45.6 H RDW Coeff of Yasmany 12.6 Plt Count 212 MPV 11.3 Immature Gran % (Auto) 0.200 Neut % (Auto) 70.7 H Lymph % (Auto) 18.6 L Florence % (Auto) 8.1 Eos % (Auto) 1.6 Baso % (Auto) 0.8 Absolute Neuts (auto) 4.4 Absolute Lymphs (auto) 1.15 Nucleated RBC % 0 Sodium 136 Potassium 3.9 Chloride 104 Carbon Dioxide 26.0 Anion Gap 6 BUN 14 Creatinine 1.11 H Estim Creat Clear Calc 30.49 Est GFR (MDRD) Af Amer 61 Est GFR (MDRD) Non-Af 51 L BUN/Creatinine Ratio 12.6 Glucose 142 H Calcium 9.1 Troponin I 0.108 H B-Natriuretic Peptide 445.1 H Rhythm Strip Rhythm Strip: Sinus Rhythm Rate: 83 Ectopy: None Radiology Impression Chest X-Ray 01/24/21 14:40 IMPRESSION: No acute pulmonary process Electronically Signed: Kit Silver MD at 14:56 EDT , Service support , Assessment & Plan Assessment/Plan (1) Acute non-ST elevation myocardial infarction (NSTEMI): PLAN: #Acute non stemi * Admit to PCU with telemetry * Initial troponin is 0.1. EKG showed no acute ST cycle troponins. * Started on heparin drip in the ED. We will continue. Give loading dose of aspirin and Plavix. * Sublingual nitroglycerin as needed. * 2D echo ordered. Consult cardiology. * Patient counseled that she will likely need cardiac cath tomorrow * #Hypertension * BP poorly controlled, and up in the 170s systlic at time of review * Patient is quite anxious that this may also play a role. * Continue on Toprol. Add on metoprolol. IV hydralazine as needed. * #History of vertebral osteoporotic fracture * Stable. Consult PT OT as she is having PT OT on outpatient basis. #Elevated creatinine * Creatinine is up to 1.1 with baseline of around 0.9. She therefore does not meet the criteria for DASIA. * Will trend. * #Hypothyroidism: On Synthroid. Will continue. #GERD: Continue PPI #Depression and anxiety: On bupropion and buspirone as well as trazodone DVT prophylaxis: not indicated as she is on heparin drip Code status: full code * Patient and her daughter counseled about differences between full code, DNR CCA and DNR CCA. Patient elects to be full code. Total [id number] time 16 minutes. Visit Charges Inpatient E&M: 72248 Init Hosp L3 Procedures Hospitalists Procedures: 24774 Advncd Care Plan 30 Min
[2021-01-24 16:06] LABS: Partial Thromboplast Time 30.3 Seconds (24.1-36.2)
--- NOTE | 2021-01-24 16:25 | EKG12_ITS ---
Test Reason : AM EKG Blood Pressure : / mmHG Vent. Rate : 066 BPM Atrial Rate : 066 BPM P-R Int : 172 ms QRS Dur : 080 ms QT Int : 414 ms P-R-T Axes : 066 -11 088 degrees QTc Int : 434 ms Normal sinus rhythm Nonspecific T wave abnormality Abnormal ECG Confirmed by BOBBY CARBAJAL, KAN ([id number]), scientific editor DONNIE GUERRIER ([id number]) on 01/27/2021 11:07:15 AM Referred By: SHITAL Confirmed By:KAN ROSALES MD
--- NOTE | 2021-01-24 16:25 | ECHOCS_ITS ---
Reason For Study: NSTEMI Procedure This was a 2D Doppler, Color Flow transthoracic echocardiogram. Contrast injection was performed. Exam performed portable in patient room. Left Ventricle Normal LV size. Segmental dysfunction with preserved ejection fraction (see wall motion). The estimated ejection fraction is 55 %. No evidence for diastolic dysfunction. Mid-Anterior : Hypokinetic. Mid-Lateral : Hypokinetic. Mid-Inferior: Hypokinetic. Mid-anteroseptal : Akinetic. Eaton : Akinetic. Right Ventricle Normal RV size. Normal systolic function. Atria Normal left atrium. Normal right atrium. No doppler evidence for ASD. Mitral Valve There is mild to moderate mitral annular calcification. Normal mitral valve. Trivial mitral valve insufficiency. Tricuspid Valve Normal tricuspid valve. Moderate (2+) tricuspid valve insufficiency. Right ventricular systolic pressure estimated to be 26 mmHg. Aortic Valve Trisinus/trileaflet aortic valve. Mild focal aortic valve calcification. Trivial aortic valve insufficiency. Pulmonic Valve The pulmonic valve is not well visualized. Trivial pulmonic valve insufficiency. Great Vessels Normal sized aortic root. Pericardium/Pleural No pericardial effusion. Medication Diluted definity 2ml given slow IV push to enhance endocardial definition. MMode/2D Measurements & Calculations LVIDd: 3.4 cm IVSd: 1.0 cm Ao root diam: 2.9 cm LVIDs: 2.2 cm LVPWd: 0.85 cm RVDd: 2.9 cm FS: 33.4 % LAV(MOD-bp): 34.0 ml LVAd ap4: 26.8 cm2 SV(MOD-sp4): 43.6 ml LAV(MOD-bp) Indexed: 22.9 ml/m2 LVLd ap4: 7.5 cm LAV(MOD-sp2): 33.7 ml EDV(MOD-sp4): 78.5 ml LAV(MOD-sp4): 29.5 ml EDV(sp4-el): 81.3 ml LVAs ap4: 17.0 cm2 LVLs ap4: 6.7 cm ESV(MOD-sp4): 34.9 ml ESV(sp4-el): 36.4 ml EF(MOD-sp4): 55.6 % EF(sp4-el): 55.2 % SV(sp4-el): 44.8 ml LA A4 area: 13.3 cm2 LA dimension(2D): 3.5 cm RA A4 area: 10.2 cm2 Doppler Measurements & Calculations MV E max earnest: 50.8 cm/sec Lat Peak E' Earnest: 6.8 cm/sec Med Peak E' Earnest: 3.9 cm/sec MV A max earnest: 67.6 cm/sec E/E' lat: 7.5 E/E' med: 12.9 MV E/A: 0.75 Ao V2 max: 91.2 cm/sec LV V1 max: 76.7 cm/sec PA V2 max: 59.3 cm/sec Ao max P.3 mmHg LV V1 max P.4 mmHg Ao V2 mean: 63.3 cm/sec Ao mean P.8 mmHg Ao V2 VTI: 20.0 cm TR max earnest: 237.7 cm/sec TR max P.6 mmHg ECHO/Echo Complete W/ Contrast Interpretation Summary Contrast injection was performed. Segmental dysfunction with preserved ejection fraction (see wall motion). The estimated ejection fraction is 55 %. There is mild to moderate mitral annular calcification. Trivial mitral valve insufficiency. Moderate (2+) tricuspid valve insufficiency. Mild focal aortic valve calcification. Trivial aortic valve insufficiency. Trivial pulmonic valve insufficiency. Right ventricular systolic pressure estimated to be 26 mmHg. No evidence for diastolic dysfunction. Ordering Physician: Shirin Dhaliwal Referring Physician: Peyton Goldberg Performed By: Marianne Keenan, RDCS, RVT
[2021-01-24] MEDS: Etodolac 300 MG Capsule PO (18:01)
[2021-01-24] MEDS: Budesonide Respules 0.5 MG/2 ML AMPUL.NEB. INHALATION (19:36)
--- NOTE | 2021-01-24 19:37 | PCM.CONS.C ---
Assessment & Plan Assessment/Plan (1) Unstable angina: PLAN: The patient presents with symptoms concerning for unstable angina pectoris. At the present time she appears to be resting comfortably. She will continue to be monitored. Her cardiac enzymes are being followed. Her ECG can be followed. She has been recommended for further evaluation with diagnostic cardiac catheterization. The procedure and risks were discussed with her. She was agreeable to this approach. In the interim she will continue medical management which does include aspirin, the addition of antiplatelets, nitrates as needed, beta-blockers, lipid-lowering agents, and anticoagulants as deemed appropriate. (2) Non-ST elevation (NSTEMI) myocardial infarction: PLAN: The patient has abnormal cardiac enzymes which are concerning for an acute non-ST segment elevation DC. The patient will continue cardiovascular evaluation care as noted above. If her cardiovascular evaluation is unremarkable for CAD to explain her symptoms and findings then there may be concerns as to whether or not this is related to her history of hypertension, which she notes has been somewhat more prominent during her episodes, versus other etiologies which may need to be further explored such as the possibility of thromboembolic disease, etc. (3) HTN (hypertension): QUALIFIERS: Hypertension type: essential hypertension Qualified Code(s): I10 - Essential (primary) hypertension PLAN: The patient does note that during her episodes her blood pressure has been elevated both with respect to systolic and diastolic. It is unclear whether this is a primary contributing factor to her symptoms and her enzymes versus being secondary to her symptoms, etc. At the moment she will be followed and her antihypertensive regimen can be adjusted as needed. She will continue with her cardiovascular evaluation. Addt'l Comments The above was discussed and reviewed with the patient as well as previously communicated with the [facility] ED staff and hospital staff. This note was generated with [employer] dictation software. It may contain incorrect words, spelling, and punctuation that were not noted in checking the note before signing. HPI Consult Data Date of Consult: 01/24/21 HPI Narrative HPI Narrative: ELIAN ALVARADO, is a 75 F who presents for her cardiovascular consultation based upon concerns of chest discomfort/shortness of breath/dyspnea concerning for unstable angina pectoris and abnormal troponin I levels concerning for non-ST segment elevation DC superimposed upon a history of hypertension. She states that recently she has been noticing episodes, including at night, where she has chest discomfort/pressure in the center of her chest with associated left upper extremity discomfort as well as being more short of breath and dyspneic especially with exertional activity at home as well as her outpatient physical therapy-for her chronic back related issues. There is been no obvious orthopnea or PND or peripheral pitting edema. She has had no near syncope or syncope. She complained of her symptoms today at physical therapy. She was subsequently referred to her PCPs office. She states she did leave a message at her PCPs office but as she did not receive an immediate response she discussed her concerns with her family members. She subsequently presented to the [facility] emergency department for further evaluation. There she underwent evaluation and was noted to have an indeterminate troponin I level that was otherwise unexplained. She was recommended for further inpatient evaluation and care. She states at rest in bed she is not having any ongoing symptoms. She has remained in sinus rhythm. A repeat troponin I level was somewhat more elevated. Her ECG demonstrated sinus rhythm with low voltage QRS, poor R wave progression, and a septal DC pattern of indeterminate age. She was recommended for cardiovascular consultation for consideration for diagnostic cardiac catheterization. [facility] Medical History (Updated 01/24/21 @ 19:[address] Christiano Lee MD) Anxiety Benign hypertension Closed odontoid fracture Depression GERD (gastroesophageal reflux disease) HTN (hypertension) Hypothyroidism Osteoarthritis Osteoporosis Sternum fx Vertebral fracture, osteoporotic Home Medications bupropion HCl 150 mg PO BID 12/28/13 [History Last Taken 01/24/21] omeprazole 20 mg PO QHS 12/28/13 [History Last Taken 01/23/21] levothyroxine 50 mcg tablet 50 mcg PO DAILY #90 tab 09/12/20 [Rx Last Taken 01/24/21] lisinopril 10 mg tablet 10 mg PO DAILY tab 10/03/20 [History Last Taken 01/24/21] fluticasone propionate 44 mcg/actuation HFA aerosol inhaler 2 puff INHALATION BID 10/31/20 [History Last Taken 01/24/21] Lactobacillus acidophilus [Probiotic Acidophilus] 500 mmu cells PO DAILY 01/24/21 [History Last Taken 01/24/21] aspirin [Aspirin Low Dose] 81 mg PO DAILY 01/24/21 [History Last Taken 01/23/21] buspirone 15 mg PO TID 01/24/21 [History Last Taken 01/24/21] nabumetone 750 mg PO BID 01/24/21 [History Last Taken 01/24/21] trazodone 50 mg PO DAILY 01/24/21 [History Last Taken 01/23/21] Allergy/AdvReac Type Severity Reaction Status Date / Time codeine Allergy swelling Verified 01/24/21 16:24 of face Surgical History (Updated 01/24/21 @ 16:32 by Cristela Arias) H/O carpal tunnel repair History of right shoulder replacement Hx of spinal surgery Status post bilateral knee replacements Social History Smoking Status: Never smoker alcohol intake: never Physical Exam Const alert and oriented x3 Orientation / Consciousness: awake HEENT normocephalic and head/scalp atraumatic Eyes PERRL, EOMs intact bilaterally, conjunctivae normal and no scleral icterus Neck supple Chest inspection of chest normal Resp normal respiratory effort and clear to auscultation bilaterally Cardio regular rate, regular rhythm, S1 normal heart sound and S2 normal heart sound GI normal to inspection, nondistended, normoactive bowel sounds Extremity normal to inspection and no pedal edema Skin no rashes or lesions noted Neuro moves all extremities Psych mental status grossly normal Procedure Criteria Type of Procedure Procedure Type: Elective Elective Risks - COVID COVID Risk Discussion: The surgeon/proceduralist and patient have discussed in detail the risk of exposure to and/or potential harm posed by the COVID-19 virus with having a surgery/procedure at this time versus the risk of delaying the surgery/procedure. It is not possible to know either the risk of delaying the surgery or procedure or chance of getting an infection with perfect accuracy, but a joint decision was made between the patient and the surgeon/proceduralist to proceed at this time with the scheduled surgery/procedure as indicated on the consent form.
[2021-01-24] MEDS: Metoprolol(XL)Succ 25 MG Tablet PO (21:10)
[2021-01-24] MEDS: busPIRone 15 MG TABLET PO (21:10)
[2021-01-24] MEDS: buPROPion (SR) 150 MG Tablet.SA PO (21:11)
[2021-01-24] MEDS: TICAGRELOR 90 MG TABLET 180 MG PO (21:12)
[2021-01-24] MEDS: Atorvastatin Calcium 40 MG Tablet PO (21:12)
[2021-01-24] MEDS: Pantoprazole Sodium 20 MG Tablet PO (21:12)
[2021-01-24] MEDS: traZODone 50 MG Tablet PO (21:16)
[2021-01-25] VITALS (21 sets, daily range): BP systolic 105–152; BP diastolic 55–94; PULSE 63–80; RESP 16–18; TEMP 36.2–37.2; O2SAT 95–99
[2021-01-25] MEDS: 0.9% Normal Saline 1,000 ML 15 ML IV (01:32)
[2021-01-25] MEDS: Loratadine 10 MG Tablet 5 MG PO ×2 (01:32→21:04)
--- NOTE | 2021-01-25 05:00 | EKG12_ITS ---
Test Reason : CHEST PAIN Blood Pressure : / mmHG Vent. Rate : 084 BPM Atrial Rate : 084 BPM P-R Int : 158 ms QRS Dur : 080 ms QT Int : 382 ms P-R-T Axes : 058 -11 035 degrees QTc Int : 451 ms Normal sinus rhythm Low voltage QRS Septal infarct , age undetermined Abnormal ECG Confirmed by BOBBY CARBAJAL, KAN ([id number]), order editor DONNIE GUERRIER ([id number]) on 01/27/2021 11:08:04 AM Referred By: SHITAL Confirmed By:KAN ROSALES MD
[2021-01-25 05:50] LABS: Absolute Lymphocyte Count 1.26 X10^3/uL (0.83-4.51); Absolute Neutrophil Count 2.9 X10^3/uL (2.0-7.7); Basophil# 0.05 X10^3/uL; Eosinophil# 0.18 X10^3/uL; Eosinophils% 3.6 % (0-5); Hematocrit 42.7 % (37-47); Hemoglobin 14.4 g/dL (12.0-15.0); Lymphocyte # 1.26 X10^3/ul (0.83-4.51); Lymphocyte % 25.5 % (19-41); Mean Corp Hgb Conc 33.7 g/dL (32-36); Mean Corpuscular Hgb 33.3 pg (27.0-32.0); Mean Corpuscular Volume 98.6 fL (81-99); Mean Platelet Vol. 11.1 fl (6.2-12.0); Monocyte# 0.51 X10^3/uL; Monocyte% 10.3 % (0-10); NRBC Flagged by Analyzer 0 % (0-5); Neutrophil # 2.94 X10^3/uL (2.7-7.7); Neutrophil % 59.4 % (47-70); Platelet Count 213 K/mm3 (150-450); RBC Distribution Width CV 12.5 % (11.6-14.6); RBC Distribution Width SD 45.6 fl (35.1-43.9); Red Blood Count 4.33 M/mm3 (4.2-5.4)
[2021-01-25] MEDS: Aspirin E.C. 81 MG Tablet PO (05:58)
[2021-01-25] MEDS: Levothyroxine 50 MCG Tablet PO (05:58)
[2021-01-25] MEDS: Lisinopril 10 MG Tablet PO (05:58)
[2021-01-25 05:59] LABS: International Normalized Ratio 1.1; Prothrombin Time (Protime)PT. 13.2 SECONDS (11.7-14.9)
[2021-01-25 06:00] LABS: Partial Thromboplast Time 32.3 Seconds (24.1-36.2)
[2021-01-25] MEDS: Metoprolol(XL)Succ 25 MG Tablet PO ×2 (06:01→21:03)
[2021-01-25] MEDS: TICAGRELOR 90 MG TABLET PO ×2 (06:02→21:06)
[2021-01-25 06:23] LABS: Anion Gap 6 (5-15); BUN 14 mg/dL (7-18); BUN/Creat Ratio 14.8 RATIO (10-20); Calcium,Total 8.8 mg/dL (8.5-10.1); Chloride 109 mmol/L (98-107); Creatinine, Serum 0.94 mg/dL (0.55-1.02); EST Glomerular Filtration Rate 61 mL/min (>60); Est Glom Filt Rate - Afr Amer 74 mL/min (>60); Glucose 98 mg/dL (74-106); Potassium 3.7 mmol/L (3.5-5.1); Sodium Level 140 mmol/L (136-145)
[2021-01-25] MEDS: Budesonide Respules 0.5 MG/2 ML AMPUL.NEB. INHALATION ×2 (07:00→19:25)
--- NOTE | 2021-01-25 08:17 | PN.HOSP_ITS ---
Subjective Subjective Patient is a 75-year-old lady admitted with 2-day history of shortness of breath and 1 day history of chest pain. Presented to the emergency department her initial assessment was consistent with acute non-STEMI admitted to monitored bed for further management Objective Data Objective Data Vital Signs: Vital Signs Temp Pulse Resp BP Pulse Ox 98.1 F 68 16 145/87 H 98 01/25/21 04:56 01/25/21 07:00 01/25/21 07:00 01/25/21 04:56 01/25/21 07:00 Oxygen Delivery Method Room Air Weight: 53 kg Body Mass Index (BMI) 22.8 Intake & Output: Intake and Output for Last 24 Hours 01/23/21 01/24/21 01/25/21 23:59 23:59 23:59 Intake Total 450.74 / 450.74 Balance 450.74 / 450.74 Lab / Micro Data Result Diagrams: 01/25/21 05:45 01/25/21 05:45 Micro: Microbiology 01/24/21 15:50 Interface Orders SARS-CoV-2 Antigen (Rapid) - Final Radiography Diagnostic Testing: Radiology Impression Chest X-Ray 01/24/21 14:40 IMPRESSION: No acute pulmonary process Electronically Signed: Kit Silver MD at 14:56 EDT , Service support , Rhythm Strip Rhythm Strip: Sinus Rhythm Rate: 83 Ectopy: None Physical Exam Narrative GENERAL: cooperative HEENT: Atraumatic; EYES; Anicteric, Normal Conjunctiva NECK; supple, normal thyroid, RESPIRATORY: Diminished to auscultation CARDIOVASCULAR: Regular S1 S2, GI: soft, normoactive bowel sounds, : No Renal angle tenderness; EXTREMITIES: No edema, no clubbing, MUSCULOSKELETAL: no muscle waisting NEURO: Awake; no lateralizing signs. SKIN: No Rash PSYCH; Flat affect Assessment & Plan Assessment/Plan (1) HTN (hypertension): QUALIFIERS: Hypertension type: essential hypertension Qualified Code(s): I10 - Essential (primary) hypertension (2) Hypothyroidism: (3) Acute non-ST elevation myocardial infarction (NSTEMI): PLAN: Patient is a 75-year-old lady admitted with 2-day history of shortness of breath and 1 day history of chest pain. Presented to the emergency department her initial assessment was consistent with acute non-STEMI admitted to monitored bed for further management 1. Acute non-STEMI -Patient admitted to monitored bed treatment initiated per protocol. Consultation was placed to cardiology patient underwent left heart catheteriza tion with PCI/VICKY of an LAD lesion 2. GERD ?On PPI 3. Hypothyroidism - Patient is on levothyroxine home dose continued 4. Hypertension - Blood pressure controlled, home medications continued with dose adjustment as needed 5. Depression with anxiety ?Patient is on bupropion and buspirone as well as trazodone 6. DVT prophylaxis ?Patient is on heparin Visit Charges Inpatient E&M: 24348 Subs Hosp L2
--- NOTE | 2021-01-25 08:46 | CASEMGMT ---
According to [facility]'s website, the following tertiary facilities are in network: [place], [facility], [facility], [facility] and .
--- NOTE | 2021-01-25 10:45 | EKG12_ITS ---
Test Reason : AM Blood Pressure : / mmHG Vent. Rate : 066 BPM Atrial Rate : 066 BPM P-R Int : 180 ms QRS Dur : 080 ms QT Int : 466 ms P-R-T Axes : 070 026 109 degrees QTc Int : 488 ms Normal sinus rhythm Low voltage QRS ST & T wave abnormality, consider anterior ischemia Prolonged QT Abnormal ECG When compared with ECG of 25-JAN-2021 13:43, MANUAL COMPARISON REQUIRED, DATA IS UNCONFIRMED Confirmed by SHIVANI CARBAJAL, DOROTEO ([id number]), image editor DONNIE GUERRIER ([id number]) on 01/31/2021 10:24:20 A M Referred By: FILEMON Confirmed By:ATIYA PARRISH MD
[2021-01-25] MEDS: 0.9% Normal Saline 1,000 ML 70 ML IV (10:52)
--- NOTE | 2021-01-25 10:54 | CL.I_ITS ---
Patient Name: ELIAN ALVARADO Study Date: 01/25/2021 Performing: Mirta Bautista MD Ht: 59.84 inches 152 cm : 1945 Wt: 116.84 lbs 53 kg Age: 75 Gender: female BSA: 1.48 PROCEDURE(S) PERFORMED [id number] W OR WO PTCA, SINGLE CORONARY ARTERY CLINICAL PROFILE AND CO-MORBIDITIES Indications: Worsening Angina, Suspected CAD, ACS <= 24 hrs Heart Failure: None Stress/Imaging Stress/Image Study Performed: No Angina Classification Anginal Classification w/in 2 Weeks: CCS III CAD Presentations: Non-STEMI. CONCLUSIONS Successful VICKY to mid LAD RECOMMENDATIONS ASA Indefinitley Brilinta for at least 12 months Pt. should return for PCI of RCA in about 4 weeks DESCRIPTION OF PROCEDURE The patient arrived to the procedure lab. The risks and benefits of the procedure as well as a full d escription of our services here and current unavailability of surgical backup were fully explained to the patient and/or their significant other prior to the catheterization. The Timeout was completed, verifying the correct patient and procedure. The patient's procedural site was prepped and draped in the usual fashion. Local anesthetic was given subcutaneously to right radial region with Lidocaine 2% Using a modified Seldinger technique,arterial access was obtained via the right radial artery, a 6Fr sheath was inserted. Left Coronary Artery selective angiography was performed in multiple views usin g a 5 Fr. 4.0 [place] catheter. Right Coronary Artery selective angiography was then performed in multi ple views using a 5 Fr. 4.0 [place] catheter. Left Ventriculography was performed in GARNER projection usi ng a 5 Fr. Pigtail catheter. LV to AO pullback pressures were then recorded.The images were reviewed and options discussed. A decision was then made to proceed with an Intervention, IVUS o r other adjunct procedure. xb3.0 Guide catheter was inserted and engaged into the LCA. BMW Guide wire was advanced to the LA D. Emerge 2.50x12 Balloon catheter was inserted. PTCA balloon inflated at 6 atms for 10 secs. Angiogr am performed post balloon dilatation. Orsiro 3.0x40 Drug Eluting stent was inserted. Angiogram perfor med post stent deployment. The arterial sheath was pulled and a TR Band was applied for hemostasis w/ 15 ml air INTERVENTION INFORMATION LESION SITE: LAD (Mid) Lesion Complexity: High/C, chronic total occlusion: No, lesion at bifurcation: Yes, thrombus present: No, lesion length: 35 mm, culprit lesion: Yes, Previously treated lesion: No Pre Stenosis: 99 % Pre intervention REBECA flow: 2 A 3.0 x 40mm stent was deployed to cover the mid LAD and ostial/proximal LAD lesions Post Stenosis: 0 % Post intervention REBECA flow: 3 Lesion Devices: Cardinal 6 Fr XB3.0 100cm Guide Catheter Brooke .014 BMW [place] Straight 190cm Siddhartha Sci EMERGE MR 2.50x12 BALLOON COMPLICATIONS No Complications PROCEDURE MEDICATIONS Versed 1 mg IV Fentanyl 50 mcg IV Oxygen: 2 L/min via nasal cannula Heparin diluted in 23cc Heparinized saline. Patient given 10cc IA of this solution. 01/25/2021 09:26: 54 Heparin 4000 unit(s) IV 01/25/2021 09:48:28 Verapamil 2.5mg, Ntg 100mcgs, 2000 units of Heparin diluted in 23cc Heparinized saline. Patient give n 10cc IA of this solution. 01/25/2021 09:26:54 SUMMARY OF HEMODYNAMIC DATA Time AIR REST ECG 09:16:56 AO 142/78 (104) SA 09:30:32 LV 149/6, 26 09:39:52 LV 150/3, 21 09:39:59 LV 149/5, 25 09:40:51 LVp 149/2, 22 09:40:56 AOp 150/78 (109) 09:41:01 Signed By Mirta Bautista MD On 01/25/2021 10:53:09 Mirta Bautista MD
[2021-01-25] MEDS: Etodolac 300 MG Capsule PO ×2 (11:01→16:44)
[2021-01-25] MEDS: buPROPion (SR) 150 MG Tablet.SA PO ×2 (11:02→21:06)
--- NOTE | 2021-01-25 12:53 | CRPHASE1 ---
Patient Communication PHII Cardiac Rehab Discussed with Patient:: No Guide to Cardiac Rehab Given to Patient:: No Cardiac Rehab Facility Choice List Given to Patient:: No Choice Program [facility] CR PHII:: Communication Given to CR Box Bender:: Keith Bautista Refer Phase II Cardiac Rehab:: Yes Sessions:: 36 sessions - 3 days/wk, 12 weeks Cardiac Rehabilitation Info Cardiac Rehabilitation Program Information: Cardiac Rehabilitation is important for patients like you who are recovering from a heart problem. Cardiac rehabilitation programs are recognized as integral to the continued care of the patient with coronary heart disease. The cardiac rehabilitation program is designed to optimize a patient's physical, psychological, and social functioning. Health personal care service provider work in cardiac rehabilitation programs and assist you with getting the treatments you need to get stronger and healthier - like exercise, healthy eating habits, and medications. Cardiac rehabilitation has been show to help people with heart problems live longer and have better life enjoyment than people who do not go to cardiac rehabilitation. Please contact the Cardiac Rehabilitation Program at [facility] at in two weeks if you have not heard from them.
--- NOTE | 2021-01-25 12:54 | CRPH1.INSTRU ---
General Education CAD and cardiac anatomy and function:: Patient communicates acknowledgment, Family communicates acknowledgment, Needs reinforcement Explanation of diagnoses and procedures:: Patient communicates acknowledgment, Family communicates acknowledgment, Needs reinforcement Sign/Symptoms of [place]:: Patient communicates acknowledgment, Family communicates acknowledgment, Needs reinforcement Antiplatelet therapy: Patient communicates acknowledgment, Family communicates acknowledgment, Needs reinforcement Proper use of NTG-SL: Patient communicates acknowledgment, Family communicates acknowledgment, Needs reinforcement Emergency procedures and activation of EMS: Patient communicates acknowledgment, Family communicates acknowledgment, Needs reinforcement Compliance of all prescribed medications: Patient communicates acknowledgment, Family communicates acknowledgment, Needs reinforcement Smoking Patient Nicotine/Smoking Risk Factors Are:: Never smoked Dyslipidemia Patient Dyslipidemia Risk Factors Are:: Total Cholesterol, Triglycerides, HDL, LDL Recommendations Include:: Lipid profile not available, Reviewed NCEP/ATP guidelines, Therapeutic Lifestyle Change dietary guidelines Dyslipidemia Response Code:: Patient communicates acknowledgment, Needs reinforcement Hypertension Recommendations Include:: Maintain BP <130/85, DASH dietary guidelines, Decrease/maintain normal body weight, Moderation of ETOH Hypertension:: Patient communicates acknowledgment, Family communicates acknowledgment, Needs reinforcement Sedentary Patient Sedentary Risk Factors Are:: Lack of regular exercise Recommendations Include:: Aerobic exercise 5-7 times/week for 20-30 minutes continuously, Benefits of regular exercise, Discussed home walking program, Monitored Outpatient Cardiac Rehab Sedentary Response Code:: Patient communicates acknowledgment, Needs reinforcement
[2021-01-25] MEDS: busPIRone 15 MG TABLET PO ×2 (14:02→21:05)
--- NOTE | 2021-01-25 14:10 | CASEMGMT ---
DOYLE GARCIA Assessment: Face to Face with pt for initial transition planning/care coordination assessment. DOYLE GARCIA introduced self and role at [facility], pt voices understanding and consents to assessment. Pt is A/O x4 and answers all questions appropriately at this time. Pt sitting up in bed in no distress. Care providers, pharmacy, and demographics verified/updated. Admitting Dx: NONSTEMI PCP: Ashlyn Specialists: hernan Mcconnell Preferred Pharmacy: [facility] Insurance: [employer] Prescription Benefit: yes LW/HPOA: Pt does not have a LW/DPOA LNOK: Cruz Ayala, ; Sylvia Romeroford, dtr Living Arrangements: Pt lives with in a single story house with 3 steps to enter with a rail. Pt states she is I in ADL and denies concerns at home. Transportation: Pt drives self and denies concerns regarding transportation. DME/HHC/SNF: Pt states she has a cane, walker and shower chair from her past surgeries, states she does not use any AD now. Pt has previously had HHC through [facility] and denies SNF stays. Pt was going to outpt therapy paid by insurance at [facility]. States she would like to resume this after hospital stay if she is medically cleared to. She denies need for HHC at this time. Pt states no concerns with going home at time of dc. Pt states no further concerns/needs. CM to follow. Advised pt to ask CM if any further question/concerns/needs arise, voices understanding. Pt Goal: Home Plan: Home and resume outpt therapy if medically cleared to do so.
--- NOTE | 2021-01-25 17:08 | PCM.PN.CARD ---
Subjective Subjective The patient underwent diagnostic cardiac catheterization earlier this day. She was found to have angiographically significant CAD of the LAD distribution. She underwent subsequent LAD PTCA/VICKY. She has been resting comfortably. Objective Data Vital Signs: Vital Signs Temp Pulse Resp BP Pulse Ox 97.2 F L 64 16 136/74 H 97 01/25/21 15:46 01/25/21 16:30 01/25/21 15:46 01/25/21 16:30 01/25/21 16:30 Oxygen Delivery Method Room Air Weight: 116 lb 13.52 oz Body Mass Index (BMI) 22.8 Intake & Output: Intake and Output for Last 24 Hours 01/23/21 01/24/21 01/25/21 23:59 23:59 23:59 Intake Total 450.74 / 450.74 297.5 / 297.5 Balance 450.74 / 450.74 297.5 / 297.5 Lab / Micro Data Result Diagrams: 01/25/21 05:45 01/25/21 05:45 Labs: Laboratory Results - last 24 hr 01/24/21 01/24/21 01/24/21 17:18 20:25 22:09 WBC RBC Hgb Hct MCV MCH MCHC RDW Std Deviation RDW Coeff of Yasmany Plt Count MPV Immature Gran % (Auto) Neut % (Auto) Lymph % (Auto) [place] % (Auto) Eos % (Auto) Baso % (Auto) Absolute Neuts (auto) Absolute Lymphs (auto) Nucleated RBC % PT INR APTT 108.0 H* Sodium Potassium Chloride Carbon Dioxide Anion Gap BUN Creatinine Estim Creat Clear Calc Est GFR (MDRD) Af Amer Est GFR (MDRD) Non-Af BUN/Creatinine Ratio Glucose Calcium Troponin I 0.130 H 0.136 H 01/25/21 01/25/21 01/25/21 05:45 05:45 05:45 WBC 5.0 RBC 4.33 Hgb 14.4 Hct 42.7 MCV 98.6 MCH 33.3 H MCHC 33.7 RDW Std Deviation 45.6 H RDW Coeff of Yasmany 12.5 Plt Count 213 MPV 11.1 Immature Gran % (Auto) 0.200 Neut % (Auto) 59.4 Lymph % (Auto) 25.5 [place] % (Auto) 10.3 H Eos % (Auto) 3.6 Baso % (Auto) 1.0 Absolute Neuts (auto) 2.9 Absolute Lymphs (auto) 1.26 Nucleated RBC % 0 PT 13.2 INR 1.1 APTT 32.3 Sodium 140 Potassium 3.7 Chloride 109 H Carbon Dioxide 25.0 Anion Gap 6 BUN 14 Creatinine 0.94 Estim Creat Clear Calc 36.00 Est GFR (MDRD) Af Amer 74 Est GFR (MDRD) Non-Af 61 BUN/Creatinine Ratio 14.8 Glucose 98 Calcium 8.8 Troponin I Micro: Microbiology 01/24/21 15:50 Interface Orders SARS-CoV-2 Antigen (Rapid) - Final Rhythm Strip Rhythm Strip: Sinus Rhythm Rate: 83 Ectopy: None Cardiology Labs/Tests 01/24/21 17:18: Troponin I 0.130 H 01/24/21 20:25: Troponin I 0.136 H 01/24/21 22:09: APTT 108.0 H* 01/25/21 05:45: WBC 5.0, RBC 4.33, Hgb 14.4, Hct 42.7, MCV 98.6, MCH 33.3 H, MCHC 33.7, Plt Count 213, MPV 11.1, Immature Gran % (Auto) 0.200, Neut % (Auto) 59.4, Lymph % (Auto) 25.5, [place] % (Auto) 10.3 H, Eos % (Auto) 3.6, Baso % (Auto) 1.0, Absolute Neuts (auto) 2.9, Nucleated RBC % 0 01/25/21 05:45: PT 13.2, INR 1.1, APTT 32.3 01/25/21 05:45: Sodium 140, Potassium 3.7, Chloride 109 H, Carbon Dioxide 25.0, Anion Gap 6, BUN 14, Creatinine 0.94, Est GFR (MDRD) Af Amer 74, Est GFR (MDRD) Non-Af 61, BUN/Creatinine Ratio 14.8, Glucose 98, Calcium 8.8 Rhythm: Sinus rhythm Radiography Diagnostic Testing: Radiology Impression Echocardiogram 01/24/21 16:25 Interpretation Summary Contrast injection was performed. Segmental dysfunction with preserved ejection fraction (see wall motion). The estimated ejection fraction is 55 %. There is mild to moderate mitral annular calcification. Trivial mitral valve insufficiency. Moderate (2+) tricuspid valve insufficiency. Mild focal aortic valve calcification. Trivial aortic valve insufficiency. Trivial pulmonic valve insufficiency. Right ventricular systolic pressure estimated to be 26 mmHg. No evidence for diastolic dysfunction. Ordering Physician: Shirin Dhaliwal Referring Physician: Peyton Goldberg Performed By: Marianne Keenan, GIOVANI, RVT Physical Exam Const alert and oriented x3 Orientation / Consciousness: awake HEENT normocephalic and head/scalp atraumatic Eyes PERRL, EOMs intact bilaterally, conjunctivae normal and no scleral icterus Neck supple Chest inspection of chest normal Resp normal respiratory effort and clear to auscultation bilaterally Cardio regular rate, regular rhythm, S1 normal heart sound and S2 normal heart sound GI normal to inspection, nondistended, normoactive bowel sounds Extremity normal to inspection and no pedal edema Skin no rashes or lesions noted Neuro moves all extremities Psych mental status grossly normal Assessment & Plan Assessment/Plan (1) Unstable angina: PLAN: The patient presents with symptoms concerning for unstable angina pectoris. At the present time she appears to be resting comfortably. She will continue to be monitored. She is status post diagnostic cardiac catheterization. She was found to have angiographically significant CAD of the LAD distribution. She underwent LAD PTCA/VICKY. She will continue medical therapy. (2) Non-ST elevation (NSTEMI) myocardial infarction: PLAN: The patient has abnormal cardiac enzymes which are concerning for an acute non-ST segment elevation [place]. The patient has undergone both noninvasive and invasive evaluation. She underwent LAD PTCA/VICKY. She will continue medical management. (3) HTN (hypertension): QUALIFIERS: Hypertension type: essential hypertension Qualified Code(s): I10 - Essential (primary) hypertension PLAN: The patient's blood pressure will be followed. She will continue medical therapy with adjustment as deemed appropriate. Addt'l Comments The patient's case was discussed and reviewed with the patient, Dr. Chand, and Dr. Bautista. This note was generated using a voice recognition system and there may be incorrect words, spelling or punctuation that were not noted when reviewing the office note prior to saving.
--- NOTE | 2021-01-25 19:42 | NURSING ---
During report it was noted that right radial cath site had a small hematoma. Pressure was applied by raiza KWON. Hematoma resolved. Will continue to monitor. No hematoma at this time, sight is soft to the touch with bruising noted.
[2021-01-25] MEDS: traZODone 50 MG Tablet PO (21:04)
[2021-01-25] MEDS: Pantoprazole Sodium 20 MG Tablet PO (21:04)
[2021-01-25] MEDS: Atorvastatin Calcium 40 MG Tablet PO (21:05)
[2021-01-26] VITALS (7 sets, daily range): BP systolic 114–151; BP diastolic 61–93; PULSE 61–75; RESP 16; TEMP 36.5–36.7; O2SAT 97–100
[2021-01-26 05:36] LABS: Hematocrit 41.8 % (37-47); Mean Corp Hgb Conc 33.5 g/dL (32-36); Mean Corpuscular Hgb 33.6 pg (27.0-32.0); Mean Corpuscular Volume 100.2 fL (81-99); Platelet Count 202 K/mm3 (150-450); RBC Distribution Width CV 12.7 % (11.6-14.6); RBC Distribution Width SD 46.6 fl (35.1-43.9); Red Blood Count 4.17 M/mm3 (4.2-5.4); White Blood Count 6.6 K/mm3 (4.4-11.0)
[2021-01-26 06:19] LABS: ALB/GLOB Ratio 1.1 RATIO (0.9-2.4); AST(SGOT) 22 U/L (15-37); Alanine Aminotransfer ALT/SGPT 21 U/L (13-56); Albumin, Serum 3.2 g/dL (3.2-5.0); Alkaline Phosphatase 67 U/L (45-117); Anion Gap 8 (5-15); BUN 15 mg/dL (7-18); BUN/Creat Ratio 21.5 RATIO (10-20); Calcium,Total 8.8 mg/dL (8.5-10.1); Chloride 109 mmol/L (98-107); EST Glomerular Filtration Rate 86 mL/min (>60); Est Glom Filt Rate - Afr Amer 104 mL/min (>60); Estimated Creatinine Clearance 33.84 ml/min; Glucose 98 mg/dL (74-106); Potassium 3.6 mmol/L (3.5-5.1); Protein, Total 6.2 g/dL (6.4-8.2); Sodium Level 140 mmol/L (136-145)
[2021-01-26] MEDS: busPIRone 15 MG TABLET PO ×2 (06:24→13:05)
[2021-01-26] MEDS: Levothyroxine 50 MCG Tablet PO (06:24)
[2021-01-26] MEDS: Budesonide Respules 0.5 MG/2 ML AMPUL.NEB. INHALATION (06:56)
--- NOTE | 2021-01-26 07:17 | PN.CARD_ITS ---
Subjective Subjective The patient is awake and alert. She states her breathing has improved. She has had no new acute complaints. Objective Data Vital Signs: Vital Signs Temp Pulse Resp BP Pulse Ox 98.0 F 61 16 134/79 H 98 01/26/21 03:00 01/26/21 06:33 01/26/21 03:00 01/26/21 03:00 01/26/21 03:00 Oxygen Delivery Method Room Air Weight: 116 lb 13.52 oz Body Mass Index (BMI) 22.8 Intake & Output: Intake and Output for Last 24 Hours 01/24/21 01/25/21 01/26/21 23:59 23:59 23:59 Intake Total 450.74 / 450.74 1083.17 / 1083.17 Balance 450.74 / 450.74 1083.17 / 1083.17 Lab / Micro Data Result Diagrams: 01/26/21 04:52 01/26/21 04:52 Labs: Laboratory Results - last 24 hr 01/26/21 01/26/21 04:52 04:52 WBC 6.6 RBC 4.17 L Hgb 14.0 Hct 41.8 MCV 100.2 H MCH 33.6 H MCHC 33.5 RDW Std Deviation 46.6 H RDW Coeff of Yasmany 12.7 Plt Count 202 MPV 12.0 Sodium 140 Potassium 3.6 Chloride 109 H Carbon Dioxide 23.0 Anion Gap 8 BUN 15 Creatinine 0.70 Estim Creat Clear Calc 33.84 Est GFR (MDRD) Af Amer 104 Est GFR (MDRD) Non-Af 86 BUN/Creatinine Ratio 21.5 H Glucose 98 Calcium 8.8 Total Bilirubin 0.40 AST 22 ALT 21 Alkaline Phosphatase 67 Total Protein 6.2 L Albumin 3.2 Globulin 3.0 Albumin/Globulin Ratio 1.1 Micro: Microbiology 01/24/21 15:50 Interface Orders SARS-CoV-2 Antigen (Rapid) - Final Rhythm Strip Rhythm Strip: Sinus Rhythm Rate: 83 Ectopy: None Cardiology Labs/Tests 01/26/21 04:52: WBC 6.6, RBC 4.17 L, Hgb 14.0, Hct 41.8, MCV 100.2 H, MCH 33.6 H , MCHC 33.5, Plt Count 202, MPV 12.0 01/26/21 04:52: Sodium 140, Potassium 3.6, Chloride 109 H, Carbon Dioxide 23.0, Anion Gap 8, BUN 15, Creatinine 0.70, Est GFR (MDRD) Af Amer 104, Est GFR (MDRD) Non-Af 86, BUN/Creatinine Ratio 21.5 H, Glucose 98, Calcium 8.8, Total Bilirubin 0.40 Rhythm: Sinus rhythm EKG: Sinus rhythm; low voltage QRS (limb leads); T wave abnormality: consider myocardial ischemia - anterior ECHO: See below Cardiac Cath: CONCLUSIONS Elevated Left Ventricular End Diastolic Pressure Segmented LV systolic dysfunction- Mild LVEF: by LV gram 55 % [place] Multivessel CAD RECOMMENDATIONS Risk factor modification Medical therapy Referred for immediate PCI DESCRIPTION OF PROCEDURE The patient arrived to the procedure lab. The risks and benefits of the procedure as well as a full description of our services here and current unavailability of surgical backup were fully explained to the patient and/or their significant other prior to the catheterization. The Timeout was completed, verifying the correct patient and procedure. The patient's procedural site was prepped and draped in the usual fashion. Local anesthetic was given subcutaneously to right radial region with Lidocaine 2%. Using a modified Seldinger technique, arterial access was obtained via the right radial artery, a 6Fr sheath was inserted. Left Coronary Artery selective angiography was per formed in multiple views using a 5 Fr. 4.0 [place] catheter. Right Coronary Artery selective angiography was then performed in multiple views using a 5 Fr. 4.0 [place] catheter. Left Ventriculography was performed in GARNER projection using a 5 Fr. Pigtail catheter. LV to AO pullback pressures were then recorded.The arterial sheath was pulled and a TR Band was applied for hemostasis w/ 15 ml air CORONARY ANGIOGRAPHY DOMINANCE: Right Dominant LEFT HEART ASSESSMENT Left Ventricular Ejection Fraction: by LV Gram 55 % Apical akinesis Elevated Left Ventricular End Diastolic Pressure LVEDP: 21 mmHg LEFT MAIN: Angiographically normal LEFT ANTERIOR DESCENDING ARTERY: OSTIAL LAD: 50 % Stenosis PROX LAD: Mild calcification MID LAD: 99 % Stenosis CIRCUMFLEX ARTERY: MID CIRC: s/p OM2: 25 % Stenosis, 25 - 50 % Stenosis RIGHT CORONARY ARTERY: Mild calcification Mild luminal irregularities DISTAL RCA: 50 - 75 % Stenosis AORTIC ROOT: Angiographically normal PCI: CONCLUSIONS Successful VICKY to mid LAD Radiography Diagnostic Testing: Radiology Impression Echocardiogram 01/24/21 16:25 Interpretation Summary Contrast injection was performed. Segmental dysfunction with preserved ejection fraction (see wall motion). The estimated ejection fraction is 55 %. There is mild to moderate mitral annular calcification. Trivial mitral valve insufficiency. Moderate (2+) tricuspid valve insufficiency. Mild focal aortic valve calcification. Trivial aortic valve insufficiency. Trivial pulmonic valve insufficiency. Right ventricular systolic pressure estimated to be 26 mmHg. No evidence for diastolic dysfunction. _ Ordering Physician: Shirin Dhaliwal Referring Physician: Peyton Goldberg Performed By: Marianne Keenan, GIOVANI, RVT Physical Exam Const alert and oriented x3 Orientation / Consciousness: awake HEENT normocephalic and head/scalp atraumatic Eyes PERRL, EOMs intact bilaterally, conjunctivae normal and no scleral icterus Neck supple Chest inspection of chest normal Resp normal respiratory effort and clear to auscultation bilaterally Cardio regular rate, regular rhythm, S1 normal heart sound and S2 normal heart sound GI normal to inspection, nondistended, normoactive bowel sounds Extremity normal to inspection and no pedal edema Skin no rashes or lesions noted Neuro moves all extremities Psych mental status grossly normal Assessment & Plan Assessment/Plan (1) CAD (coronary artery disease): PLAN: The patient did undergo evaluation with diagnostic cardiac catheterization. She was found to have angiographically significant appearing CAD of the LAD which subsequently underwent PTCA/VICKY. She will continue risk factor modification medical management. She will need continued outpatient cardiovascular follow-up to monitor the remainder of her CAD status for the need for additional noninvasive and/or invasive evaluation and care. (2) Unstable angina: PLAN: The patient presents with symptoms concerning for unstable angina pectoris. At the present time she appears to be resting comfortably. She is status post diagnostic cardiac catheterization. She was found to have angiographically significant CAD of the LAD distribution. She underwent LAD P TCA/VICKY. She will continue medical therapy. (3) Non-ST elevation (NSTEMI) myocardial infarction: PLAN: The patient has abnormal cardiac enzymes which are concerning for an acute non-ST segment elevation [place]. The patient has undergone both noninvasive and invasive evaluation. She underwent LAD PTCA/VICKY. She will continue medical management. (4) HTN (hypertension): QUALIFIERS: Hypertension type: essential hypertension Qualified Code(s): I10 - Essential (primary) hypertension PLAN: The patient's blood pressure will be followed. She will continue medical therapy with adjustment as deemed appropriate. Addt'l Comments Overall, at the present time, the patient will continue medical management. Hopefully over time with medical management and having received her LAD PTC A/stent her left ventricular wall motion will improve. Over time she will need continued outpatient follow-up with both noninvasive and/or invasive studies as deemed appropriate. The patient's case was discussed and reviewed with the patient. This note was generated using a voice recognition system and there may be incorrect words, spelling or punctuation that were not noted when reviewing the office note prior to saving.
--- NOTE | 2021-01-26 07:30 | PCM.DC.SUM ---
Providers Date of Admission: 01/24/21 Primary Care Physician: Dr. Peyton Golbderg MD Consultations 01/24/21 16:25 Consult: Cardiology Routine Consulting Provider: Christiano Lee Reason for Consult: nonstemi EMERGENT Consult: No MD Notified: Yes Date Notified:: 01/24/21 Time Notified: 16:30 Method of Notification: Text Comments:: also informed by ED doctor Reason For Visit: NONSTEMI Diagnosis Discharge Diagnosis (1) CAD (coronary artery disease): Status: Acute Code(s): I25.10 - Atherosclerotic heart disease of [place] coronary artery without angina pectoris (2) Unstable angina: Status: Acute Code(s): I20.0 - Unstable angina (3) Non-ST elevation (NSTEMI) myocardial infarction: Status: Acute Code(s): I21.4 - Non-ST elevation (NSTEMI) myocardial infarction (4) HTN (hypertension): Status: Chronic Code(s): I10 - Essential (primary) hypertension Qualifiers: Hypertension type: essential hypertension Qualified Code(s): I10 - Essential (primary) hypertension Medications at Discharge Home Medications bupropion HCl 150 mg PO BID 12/28/13 omeprazole 20 mg PO QHS 12/28/13 levothyroxine 50 mcg tablet 50 mcg PO DAILY #90 tab 09/12/20 lisinopril 10 mg tablet 10 mg PO DAILY tab 10/03/20 fluticasone propionate 44 mcg/actuation HFA aerosol inhaler 2 puff INHALATION BID 10/31/20 Probiotic Acidophilus 500 mmu cells PO DAILY 01/24/21 aspirin [Aspirin Low Dose] 81 mg PO DAILY 01/24/21 buspirone 15 mg PO TID 01/24/21 nabumetone 750 mg PO BID 01/24/21 trazodone 50 mg PO DAILY 01/24/21 atorvastatin 40 mg PO QHS #90 tab 01/26/21 metoprolol succinate 25 mg PO BID #90 tab 01/26/21 ticagrelor [Brilinta] 90 mg PO BID #180 tab 01/26/21 Hospital Course Summary of Care Provided Minutes Spent on Discharge: 40 Hospital Course: ?Patient is a 75-year-old lady admitted with 2-day history of shortness of breath and 1 day history of chest pain.? Presented to the emergency department her initial assessment was consistent with acute non-STEMI admitted to monitored bed for further management 1.? Acute non-STEMI -Patient admitted to monitored bed treatment initiated per protocol.? Consultation was placed to cardiology patient underwent left heart catheterization with PCI/VICKY of an LAD lesion -01/26/2021; patient was discharged home on recommended medications 2.? GERD ?On PPI 3.? Hypothyroidism - Patient is on levothyroxine home dose continued 4.? Hypertension - Blood pressure controlled, home medications continued with dose adjustment as needed 5.? Depression with anxiety ?Patient is on bupropion and buspirone as well as trazodone 6.? DVT prophylaxis ?Patient is on heparin Physical Exam Narrative GENERAL: cooperative HEENT: Atraumatic; EYES; Anicteric, Normal Conjunctiva NECK; supple, normal thyroid, RESPIRATORY: Diminished to auscultation CARDIOVASCULAR:? Regular S1 S2, GI:? soft, normoactive bowel sounds, : No Renal angle tenderness; EXTREMITIES:? No edema, no clubbing, MUSCULOSKELETAL:? no muscle waisting NEURO:? Awake;? no lateralizing signs. SKIN:? No Rash PSYCH; Flat? affect ABG / Lab / Microbiology Data Result Diagrams: 01/26/21 04:52 01/26/21 04:52 Laboratory: Laboratory Results - last 24 hr 01/26/21 01/26/21 04:52 04:52 WBC 6.6 RBC 4.17 L Hgb 14.0 Hct 41.8 MCV 100.2 H MCH 33.6 H MCHC 33.5 RDW Std Deviation 46.6 H RDW Coeff of Yasmany 12.7 Plt Count 202 MPV 12.0 Sodium 140 Potassium 3.6 Chloride 109 H Carbon Dioxide 23.0 Anion Gap 8 BUN 15 Creatinine 0.70 Estim Creat Clear Calc 33.84 Est GFR (MDRD) Af Amer 104 Est GFR (MDRD) Non-Af 86 BUN/Creatinine Ratio 21.5 H Glucose 98 Calcium 8.8 Total Bilirubin 0.40 AST 22 ALT 21 Alkaline Phosphatase 67 Total Protein 6.2 L Albumin 3.2 Globulin 3.0 Albumin/Globulin Ratio 1.1 Microbiology: Microbiology 01/24/21 15:50 Interface Orders SARS-CoV-2 Antigen (Rapid) - Final Radiography Diagnostic Testing: Radiology Impression Echocardiogram 01/24/21 16:25 Interpretation Summary Contrast injection was performed. Segmental dysfunction with preserved ejection fraction (see wall motion). The estimated ejection fraction is 55 %. There is mild to moderate mitral annular calcification. Trivial mitral valve insufficiency. Moderate (2+) tricuspid valve insufficiency. Mild focal aortic valve calcification. Trivial aortic valve insufficiency. Trivial pulmonic valve insufficiency. Right ventricular systolic pressure estimated to be 26 mmHg. No evidence for diastolic dysfunction. Ordering Physician: Shirin Dhaliwal Referring Physician: Peyton Goldberg Performed By: Marianne Keenan, GIOVANI, RVT D/C Instructions Discharge Diet: Low fat / Low cholesterol Discharge Activity: Return to Normal Activity Call your doctor if you observe: Fever of 101 or Higher, Shortness of breath, Fainting spells and Chest pain Meaningful Use Info Meaningful Use Diagnoses (Choose all that apply): AMI AMI/Post PCI/Angioplasty Aspirin given w/in 24hrs of arrival?: Yes ASA at discharge?: Yes Antiplatelet Therapy at Discharge:: Yes Statins at discharge?: Yes Robbin/ARB at discharge?: Yes Beta Brett at discharge?: Yes Done w/ Acute KS measure.: Yes Documented LVEF (%): 55 Discharge Plan Admission Admit Date/Time: 01/24/21 16:26 Attending Provider: Klever Chand Primary Care Provider: Peyton Goldberg Consulting Providers: Christiano Lee Instructions Patient Instructions: ED Chest Pain, Noncardiac Discharge Orders/Prescriptions Prescriptions: New atorvastatin 40 mg Tablet 40 mg PO QHS Qty: 90 RF: 0 metoprolol succinate 25 mg Tablet Extended Release 24 Hr 25 mg PO BID Qty: 90 RF: 0 Brilinta 90 mg Tablet 90 mg PO BID Qty: 180 RF: 3 Continued fluticasone propionate 44 mcg/actuation HFA aerosol inhaler 2 puff INHALATION BID RF: 0 lisinopril 10 mg tablet 10 mg PO DAILY RF: 0 bupropion HCl 150 MG tablet extended release 12 hr 150 mg PO BID RF: 0 omeprazole 20 MG capsule 20 mg PO QHS RF: 0 trazodone 50 mg Tablet 50 mg PO DAILY RF: 0 Probiotic Acidophilus 1.5 mg (250 million cell) Capsule 500 mmu cells PO DAILY RF: 0 buspirone 15 mg Tablet 15 mg PO TID RF: 0 nabumetone 750 mg tablet 750 mg PO BID RF: 0 aspirin [Aspirin Low Dose] 81 mg Tablet,Delayed Release (Dr/Ec) 81 mg PO DAILY RF: 0 levothyroxine 50 mcg tablet 50 mcg PO DAILY Qty: 90 RF: 3 Referrals / Follow Up: Peyton Goldberg MD [Primary Care Provider] - Within 1 Week Christiano Lee MD [STAFF PHYSICIAN] - Within 2 Weeks Disposition Disposition (needs filled in before D/C Order can be placed): Home, self care Visit Charges Inpatient E&M: 80193 Disch Hosp
[2021-01-26] MEDS: Etodolac 300 MG Capsule PO (07:31)
[2021-01-26] MEDS: Aspirin E.C. 81 MG Tablet PO (07:31)
--- NOTE | 2021-01-26 07:37 | CL.D_ITS ---
Patient Name: ELIAN ALVARADO Study Date: 01/25/2021 Performing: Christiano Lee MD Ht: 60 inches 152 cm : 1945 Wt: 117 lbs 53 kg Age: 75 Gender: female BSA: 1.48 PROCEDURE(S) PERFORMED IF79-FEF/COR/LV CO94-DQB W OR WO PTCA, SINGLE CORONARY ARTERY CLINICAL PROFILE AND INDICATIONS Indications: Worsening Angina, Suspected CAD, ACS <= 24 hrs Heart Failure: None Stress/Imaging Stress/Image Study Performed: No Angina Classification Anginal Classification w/in 2 Weeks: CCS III CAD Presentations: Non-STEMI. CONCLUSIONS Elevated Left Ventricular End Diastolic Pressure Segmented LV systolic dysfunction- Mild LVEF: by LV gram 55 % [place] Multivessel CAD RECOMMENDATIONS Risk factor modification Medical therapy Referred for immediate PCI DESCRIPTION OF PROCEDURE The patient arrived to the procedure lab. The risks and benefits of the procedure as well as a full d escription of our services here and current unavailability of surgical backup were fully explained to the patient and/or their significant other prior to the catheterization. The Timeout was completed, verifying the correct patient and procedure. The patient's procedural site was prepped and draped in the usual fashion. Local anesthetic was given subcutaneously to right radial region with Lidocaine 2% . Using a modified Seldinger technique, arterial access was obtained via the right radial artery, a 6 Fr sheath was inserted. Left Coronary Artery selective angiography was performed in multiple views u sing a 5 Fr. 4.0 [place] catheter. Right Coronary Artery selective angiography was then performed in mu ltiple views using a 5 Fr. 4.0 [place] catheter. Left Ventriculography was performed in GARNER projection using a 5 Fr. [place] catheter. LV to AO pullback pressures were then recorded.The arterial sheath was pulled and a TR Band was applied for hemostasis w/ 15 ml air CORONARY ANGIOGRAPHY DOMINANCE: Right Dominant LEFT HEART ASSESSMENT Left Ventricular Ejection Fraction: by LV Gram 55 % Apical akinesis Elevated Left Ventricular End Diastolic Pressure LVEDP: 21 mmHg LEFT MAIN: Angiographically normal LEFT ANTERIOR DESCENDING ARTERY: OSTIAL LAD: 50 % Stenosis PROX LAD: Mild calcification MID LAD: 99 % Stenosis CIRCUMFLEX ARTERY: MID CIRC: s/p OM2: 25 % Stenosis, 25 - 50 % Stenosis RIGHT CORONARY ARTERY: Mild calcification Mild luminal irregularities DISTAL RCA: 50 - 75 % Stenosis AORTIC ROOT: Angiographically normal COMPLICATIONS No Complications PROCEDURE MEDICATIONS Versed 1 mg IV Fentanyl 50 mcg IV Oxygen: 2 L/min via nasal cannula Heparin diluted in 23cc Heparinized saline. Patient given 10cc IA of this solution. 01/25/2021 09:26: 54 Heparin 4000 unit(s) IV 01/25/2021 09:48:28 Verapamil 2.5mg, Ntg 100mcgs, 2000 units of Heparin diluted in 23cc Heparinized saline. Patient give n 10cc IA of this solution. 01/25/2021 09:26:54 SUMMARY OF HEMODYNAMIC DATA Time AIR REST ECG 09:16:56 AO 142/78 (104) SA 09:30:32 LV 149/6, 26 09:39:52 LV 150/3, 21 09:39:59 LV 149/5, 25 09:40:51 LVp 149/2, 22 09:40:56 AOp 150/78 (109) 09:41:01 Signed By Christiano Lee MD On 01/26/2021 07:36:21 Christiano Lee MD
[2021-01-26] MEDS: Lisinopril 10 MG Tablet PO (09:23)
[2021-01-26] MEDS: Metoprolol(XL)Succ 25 MG Tablet PO (09:24)
[2021-01-26] MEDS: buPROPion (SR) 150 MG Tablet.SA PO (09:24)
[2021-01-26] MEDS: TICAGRELOR 90 MG TABLET PO (09:24)
--- NOTE | 2021-01-26 10:00 | EKG12_ITS ---
Test Reason : POST PCI Blood Pressure : / mmHG Vent. Rate : 074 BPM Atrial Rate : 074 BPM P-R Int : 180 ms QRS Dur : 080 ms QT Int : 404 ms P-R-T Axes : 059 -01 092 degrees QTc Int : 448 ms Normal sinus rhythm Low voltage QRS T wave abnormality, consider anterior ischemia Abnormal ECG When compared with ECG of 25-JAN-2021 05:13, MANUAL COMPARISON REQUIRED, DATA IS UNCONFIRMED Confirmed by SHIVANI CARBAJAL, DOORTEO ([id number]), photographic editor DONNIE GUERRIER ([id number]) on 01/31/2021 10:24:55 A M Referred By: SHITAL Confirmed By:ATIYA PARRISH MD
--- NOTE | 2021-01-26 14:24 | CASEMGMT ---
RN RADHA noted pt to be dc'd on Brilinta. Called [facility] pharmacy for cost. Pt cost for 90 days is $300. Provided pt with Brilinta savings card with explanation. Pt verbalized understanding.
[2021-01-26] MEDS: Acetaminophen 325 MG Tablet 650 MG PO (15:11)
== END 2021-01-26 15:59 | disposition home or self-care (01) | DRG 247 ==
LOC: ED 15:44 → PCU 17:00
PROVIDERS: Specialist; Admitting Provider Student in an Organized Health Care Education/Training Program; Emergency Provider Emergency Medicine; PCP Family Medicine; Visit Provider Internal Medicine
DX: I21.4 Non-ST elevation (NSTEMI) myocardial infarction (principal); K21.9 Gastro-esophageal reflux disease without esophagitis; E03.9 Hypothyroidism, unspecified; I10 Essential (primary) hypertension; F41.9 Anxiety disorder, unspecified; F32.9 Major depressive disorder, single episode, unspecified; Z79.899 Other long term (current) drug therapy; R94.4 Abnormal results of kidney function studies; I25.110 Atherosclerotic heart disease of native coronary artery with unstable angina pectoris
CPT/HCPCS: 36415; 71045; 80048; 80053; 83880; 84484; 85025; 85027; 85610; 85730; 87426; 92928; 93005; 93306; 93458; 94640; 99152; 99153; 99285; J7030; Q9957; Q9967; A4216; C1725; C1769; C1874; C1887; C1894; C8929; C9600

== ENCOUNTER 2021-02-23 09:19 | Day surgery (SDC) | payer MEDICARE, SELFPAY ==
[2021-01-24 16:24] VITALS: BMI 22.8
[2021-02-14 15:06] VITALS: BMI 23.0
[2021-02-22 08:14] VITALS: BMI 23.0
[2021-02-23] VITALS (14 sets, daily range): BP systolic 123–165; BP diastolic 66–92; PULSE 54–70; RESP 13–18; TEMP 36.8–37.2; O2SAT 95–98
[2021-02-23] MEDS: 0.9% Normal Saline 1,000 ML 75 ML IV (10:30)
--- NOTE | 2021-02-23 11:12 | CL.I_ITS ---
Patient Name: ELIAN ALVARADO Study Date: 02/23/2021 Performing: Mirta Bautista MD Ht: 59 inches 150 cm : 1945 Wt: 114.8 lbs 52 kg Age: 75 Gender: female BSA: 1.46 PROCEDURE(S) PERFORMED AM23-IUI W OR WO PTCA, SINGLE CORONARY ARTERY CLINICAL PROFILE AND CO-MORBIDITIES Heart Failure: None CAD Presentations: Other: staged PCI of RCA CONCLUSIONS Successful PCI with VICKY to distal RCA RECOMMENDATIONS DESCRIPTION OF PROCEDURE The patient arrived to the procedure lab. The risks and benefits of the procedure as well as a full d escription of our services here and current unavailability of surgical backup were fully explained to the patient and/or their significant other prior to the catheterization. The Timeout was completed, verifying the correct patient and procedure. The patient's procedural site was prepped and draped in the usual fashion. Local anesthetic was given subcutaneously to right radial region with Lidocaine 2% . Using a modified Seldinger technique, arterial access was obtained via the right radial artery, a 6 Fr sheath was inserted.. JR4 Guide catheter was inserted and engaged into the RCA. [employer] [place] Guide wire was advanced t o the RCA. Emerge 3.0 x 15 Balloon catheter was inserted. Balloon catheter was advanced across lesion in the right coronary, distal. PTCA balloon inflated at 6 atms for 9 secs. Angiogram performed post balloon dilatation. Orsiro 3.0 x 22 Drug Eluting stent was inserted. Drug Eluting stent was advanced across the lesion in the right coronary, distal. Angiogram performed pre stent deployment. Angiogram performed post stent deployment. NC Emerge 3.0 x 12 Balloon catheter was inserted. Balloon catheter w as advanced across lesion in the right coronary, distal. Angiogram performed pre balloon dilatation. Angiogram performed post balloon dilatation. Angiogram performed post stent deployment. The arterial sheath was pulled and a TR Band was applied for hemostasis INTERVENTION INFORMATION LESION SITE: RCA (Distal) Lesion Complexity: High/C, chronic total occlusion: No, lesion at bifurcation: No, thrombus present: No, lesion length: 20 mm, culprit lesion: Yes, Previously treated lesion: No Pre Stenosis: 80 % Pre intervention REBECA flow: 3 PROCEDURE: Drug Eluting Stent with pre and post dilatation Post Stenosis: 0 % Post intervention REBECA flow: 3 Lesion Devices: Brooke .014 [employer] [place] Straight 190cm Cardinal 6 Fr JR4 100cm Guide Catheter Siddhartha Sci EMERGE MR 3.00x15 BALLOON Siddhartha Sci NC EMERGE MR 3.00x12 BALLOON COMPLICATIONS No Complications PROCEDURE MEDICATIONS Fentanyl 50 mcg IV Versed 1 mg IV Oxygen: 2 L/min via nasal cannula Heparin given IA 02/23/2021 10:14:58 Heparin 1000 unit(s) IV 02/23/2021 10:15:15 Verapamil 2.5mg, Ntg 100mcgs, 3000 units of Heparin given IA 02/23/2021 10:14:58 SUMMARY OF HEMODYNAMIC DATA Time AIR REST ECG 09:39:42 AO 144/87 (117) SA 10:16:38 Signed By Mirta Bautista MD On 02/23/2021 11:11:30 AM Mirta Bautista MD
--- NOTE | 2021-02-23 11:15 | EKG12_ITS ---
Test Reason : AM EKG Blood Pressure : / mmHG Vent. Rate : 061 BPM Atrial Rate : 061 BPM P-R Int : 190 ms QRS Dur : 078 ms QT Int : 456 ms P-R-T Axes : 041 -06 141 degrees QTc Int : 459 ms Normal sinus rhythm Low voltage QRS T wave abnormality, consider anterior ischemia Abnormal ECG When compared with ECG of 26-JAN-2021 04:57, No significant change was found Confirmed by SHIVANI CARBAJAL, DOROTEO ([id number]), website/blog editor DONNIE GUERRIER ([id number]) on 02/27/2021 11:15:43 A M Referred By: Keith Bautista Confirmed By:ATIYA BAUTISTA MD
--- NOTE | 2021-02-23 12:10 | CRPHASE1 ---
Patient Communication Former Patient:: Phase I PHII Cardiac Rehab Discussed with Patient:: Yes Guide to Cardiac Rehab Given to Patient:: Yes Cardiac Rehab Facility Choice List Given to Patient:: Yes Choice Program [facility] CR PHII:: Communication Given to CR Choice Program Other:: Communication Given to CR Music Theory Professor:: Keith Bautista Refer Phase II Cardiac Rehab:: Yes Sessions:: 36 sessions - 3 days/wk, 12 weeks - pt had prior PCI in January of 2021 Cardiac Rehabilitation Info Cardiac Rehabilitation Program Information: Cardiac Rehabilitation is important for patients like you who are recovering from a heart problem. Cardiac rehabilitation programs are recognized as integral to the continued care of the patient with coronary heart disease. The cardiac rehabilitation program is designed to optimize a patient's physical, psychological, and social functioning. Health animal care provider work in cardiac rehabilitation programs and assist you with getting the treatments you need to get stronger and healthier - like exercise, healthy eating habits, and medications. Cardiac rehabilitation has been show to help people with heart problems live longer and have better life enjoyment than people who do not go to cardiac rehabilitation. Please contact the Cardiac Rehabilitation Program at [facility] at in two weeks if you have not heard from them.
--- NOTE | 2021-02-23 12:11 | CRPH1.INSTRU ---
General Education CAD and cardiac anatomy and function:: Patient communicates acknowledgment Explanation of diagnoses and procedures:: Patient communicates acknowledgment Sign/Symptoms of DE:: Patient communicates acknowledgment Antiplatelet therapy: Patient communicates acknowledgment Smoking Patient Nicotine/Smoking Risk Factors Are:: Never smoked Dyslipidemia Patient Dyslipidemia Risk Factors Are:: Total Cholesterol, Triglycerides, HDL, LDL Recommendations Include:: Lipid profile provided, Reviewed NCEP/ATP guidelines Dyslipidemia Response Code:: Patient communicates acknowledgment Overweight/Obesity Patient Overweight/Obesity Risk Factors Are:: BMI Normal [24-29 & > 65 years old] Recommendations Include:: Weight loss of 5-10%, Reduced calorie diet, Exercise 5-7 times/week Overweight/Obesity:: Patient communicates acknowledgment Hypertension Patient Hypertension Risk Factors Are:: No documented hx of HTN Recommendations Include:: Maintain BP <130/85, BP <130/80 if diabetic, DASH dietary guidelines, Decrease/maintain normal body weight, Moderation of ETOH Hypertension:: Patient communicates acknowledgment Heart Disease Patient Heart Disease Risk Factors Are:: Previous cardiac event Heart Disease Response Code:: Family communicates acknowledgment Diabetes Patient Diabetes Risk Factors Are:: No documented hx of diabetes Sedentary Patient Sedentary Risk Factors Are:: Lack of regular exercise Recommendations Include:: Aerobic exercise 5-7 times/week for 20-30 minutes continuously, Benefits of regular exercise, Discussed home walking program, Monitored Outpatient Cardiac Rehab Sedentary Response Code:: Patient communicates acknowledgment Stress Patient Stress Risk Factors Are:: Patient denies stress as a risk factor
[2021-02-23] MEDS: busPIRone 15 MG TABLET PO ×2 (13:25→20:47)
[2021-02-23] MEDS: Budesonide Respules 0.5 MG/2 ML AMPUL.NEB. INHALATION (19:13)
[2021-02-23] MEDS: Metoprolol(XL)Succ 25 MG Tablet PO (20:46)
[2021-02-23] MEDS: Pantoprazole Sodium 20 MG Tablet PO (20:47)
[2021-02-23] MEDS: Atorvastatin Calcium 40 MG Tablet PO (20:47)
[2021-02-23] MEDS: buPROPion (SR) 150 MG Tablet.SA PO (20:47)
[2021-02-23] MEDS: Etodolac 300 MG Capsule PO (20:47)
[2021-02-23] MEDS: TICAGRELOR 90 MG TABLET PO (20:47)
--- NOTE | 2021-02-23 20:48 | NURSING ---
2200 medications given early per patient request.
[2021-02-24 02:44] VITALS: BP 159/85; PULSE 62; RESP 16; TEMP 36.6; O2SAT 95
[2021-02-24 03:00] VITALS: PULSE 64
[2021-02-24] MEDS: busPIRone 15 MG TABLET PO (05:25)
[2021-02-24] MEDS: Levothyroxine 50 MCG Tablet PO (05:25)
[2021-02-24 06:56] LABS: Hematocrit 42.1 % (37-47); Mean Corp Hgb Conc 33.3 g/dL (32-36); Mean Corpuscular Hgb 32.6 pg (27.0-32.0); Mean Corpuscular Volume 98.1 fL (81-99); Mean Platelet Vol. 11.7 fl (6.2-12.0); Platelet Count 208 K/mm3 (150-450); RBC Distribution Width CV 12.7 % (11.6-14.6); RBC Distribution Width SD 45.4 fl (35.1-43.9); Red Blood Count 4.29 M/mm3 (4.2-5.4); White Blood Count 6.7 K/mm3 (4.4-11.0)
[2021-02-24 07:00] VITALS: PULSE 54; PULSE 68; RESP 16; O2SAT 96
[2021-02-24] MEDS: Budesonide Respules 0.5 MG/2 ML AMPUL.NEB. INHALATION (07:00)
[2021-02-24 07:17] LABS: ALB/GLOB Ratio 1.1 RATIO (0.9-2.4); AST(SGOT) 25 U/L (15-37); Alanine Aminotransfer ALT/SGPT 33 U/L (13-56); Albumin, Serum 3.4 g/dL (3.2-5.0); Alkaline Phosphatase 78 U/L (45-117); Anion Gap 8 (5-15); BUN 15 mg/dL (7-18); BUN/Creat Ratio 18.2 RATIO (10-20); Calcium,Total 8.6 mg/dL (8.5-10.1); Chloride 110 mmol/L (98-107); Creatinine, Serum 0.82 mg/dL (0.55-1.02); EST Glomerular Filtration Rate 71 mL/min (>60); Est Glom Filt Rate - Afr Amer 86 mL/min (>60); Estimated Creatinine Clearance 41.27 ml/min; Glucose 101 mg/dL (74-106); Potassium 3.7 mmol/L (3.5-5.1); Protein, Total 6.4 g/dL (6.4-8.2); Sodium Level 142 mmol/L (136-145)
[2021-02-24 08:32] VITALS: BP 160/72; PULSE 60; RESP 18; TEMP 36.3; O2SAT 96
[2021-02-24 08:39] VITALS: BP 160/72; PULSE 60
[2021-02-24] MEDS: Etodolac 300 MG Capsule PO (08:39)
[2021-02-24] MEDS: TICAGRELOR 90 MG TABLET PO (08:39)
[2021-02-24] MEDS: Lisinopril 10 MG Tablet PO (08:39)
[2021-02-24] MEDS: Metoprolol(XL)Succ 25 MG Tablet PO (08:39)
[2021-02-24] MEDS: buPROPion (SR) 150 MG Tablet.SA PO (08:39)
[2021-02-24] MEDS: Calcium Carb/Vitamin D 1 TABLET Tablet PO (08:39)
[2021-02-24] MEDS: Aspirin E.C. 81 MG Tablet PO (08:39)
--- NOTE | 2021-02-24 10:00 | EKG12_ITS ---
Test Reason : PCI Blood Pressure : / mmHG Vent. Rate : 057 BPM Atrial Rate : 057 BPM P-R Int : 192 ms QRS Dur : 076 ms QT Int : 418 ms P-R-T Axes : 029 -14 123 degrees QTc Int : 406 ms Sinus bradycardia Low voltage QRS Borderline ECG No previous ECGs available Confirmed by SHIVANI CARBAJAL, DOROTEO ([id number]), writer editor DONNIE GUERRIER ([id number]) on 02/27/2021 11:17:59 A M Referred By: Keith Bautista Confirmed By:ATIYA BAUTISTA MD
--- NOTE | 2021-02-24 12:20 | PCM.DC ---
Discharge Instructions Diet Discharge Diet: No restrictions (You may continue your normal diet.) Activity May resume sexual activity in: 1 week (if no groin problems occur.) Lifting Restrictions: 10 pounds and also avoid any pushing or pulling for 3 days after your test. Additional Activity Instructions:: You must have someone drive you home. Do not drive until instructed by your doctor. You must have someone stay with you all night after your test. Rest in bed or on the couch until the next morning. Limit the number of times you go up and down stairs the day of your test. Dressing / Incision Call your doctor if your incision/area has: Increased Pain/ Swelling, Increased Redness, Foul Smelling Discharge and Swelling at the incision site Call your doctor if you observe: Fever of 101 or Higher Additional Dressing/Incision Instructions:: Keep the dressing (bandage) on until the next morning. You may then shower, but do not take a tub bath for 5 days after your test. It is normal to have some tenderness and discomfort at the puncture site. Sometimes bruising also occurs. However, if pain, numbness, or coldness occurs below the puncture site (in your leg, toes, arms or fingers) call your doctor at once. You may have a small, marble sized knot at the puncture site. This is normal. Do not rub it. It will go away in 4-6 weeks. Bleeding can occur from the area where the puncture was done. Blood may spurt or drip from the site. If blood spurts, apply pressure right away to stop bleeding and call 911. Although rare, bleeding into the tissue (hematoma) can also occur. If this happens, a large, firm area goose egg under the skin will appear. If any of these occur, lie down as flat as you can and have someone apply firm pressure to the cath site with a gauze pad or a clean washcloth for 10-15 minutes. Call 911 or go to the Emergency Department. Follow Up Care Please Follow Up With: Christiano Lee MD Test Results: Test results from this visit will be discussed in further detail at your follow-up appointment, if applicable. Discharge Plan Admission Primary Reason for Your Visit: for staged PCI of RCA Attending Provider: Keith Bautista Primary Care Provider: Peyton Goldberg Instructions Patient Instructions: ED Chest Pain, Noncardiac Discharge Orders/Prescriptions Prescriptions: No Action fluticasone propionate 44 mcg/actuation HFA aerosol inhaler 2 puff INHALATION BID RF: 0 lisinopril 10 mg tablet 10 mg PO DAILY RF: 0 cyclobenzaprine 5 mg tablet 5 mg PO TID PRN (Reason: Muscle Pain) RF: 0 lorazepam 0.5 mg tablet 0.5 mg PO TID PRN (Reason: Anxiety) RF: 0 Prolia 60 mg/mL syringe 60 mg subcut [id number] RF: 0 calcium carbonate-vitamin D3 600 mg(1,500mg) -400 unit tablet 1 tab PO DAILY RF: 0 bupropion HCl 150 MG tablet extended release 12 hr 150 mg PO BID RF: 0 omeprazole 20 MG capsule 20 mg PO QHS RF: 0 trazodone 50 mg Tablet 50 mg PO DAILY RF: 0 buspirone 15 mg Tablet 15 mg PO TID RF: 0 nabumetone 750 mg tablet 750 mg PO BID RF: 0 aspirin [Aspirin Low Dose] 81 mg Tablet,Delayed Release (Dr/Ec) 81 mg PO DAILY RF: 0 atorvastatin 40 mg Tablet 40 mg PO QHS Qty: 90 RF: 0 metoprolol succinate 25 mg Tablet Extended Release 24 Hr 25 mg PO BID Qty: 90 RF: 0 Brilinta 90 mg Tablet 90 mg PO BID Qty: 180 RF: 3 levothyroxine 50 mcg tablet 50 mcg PO DAILY Qty: 90 RF: 3 Referrals / Follow Up: Peyton Goldberg MD [Primary Care Provider] - Disposition Disposition (needs filled in before D/C Order can be placed): Home, self care
--- NOTE | 2021-02-24 14:33 | PCM.PN.BLA ---
Progress Note Discharge summary: Date of admission: 02/23/2021 Date of discharge: 02/24/2021 Reason for the hospitalization: PCI of RCA Hospital course: Patient underwent elective, staged PCI of RCA. Patient tolerated the procedure well without any complications. She had an uneventful hospital course and she is being discharged home in a stable condition today. She will follow-up with Dr. Lee as an outpatient.
== END 2021-02-24 12:21 | disposition home or self-care (01) ==
LOC: CLSP 09:21 → PCU 02-24 10:31
PROVIDERS: PCP Family Medicine; Referring Provider Specialist; Visit Provider Specialist
DX: I25.10 Atherosclerotic heart disease of native coronary artery without angina pectoris (principal); I10 Essential (primary) hypertension; K21.9 Gastro-esophageal reflux disease without esophagitis; M19.90 Unspecified osteoarthritis, unspecified site; E03.9 Hypothyroidism, unspecified; F41.9 Anxiety disorder, unspecified; F32.9 Major depressive disorder, single episode, unspecified; Z95.5 Presence of coronary angioplasty implant and graft; Z79.899 Other long term (current) drug therapy
CPT/HCPCS: 36415; 80053; 85027; 92928; 93005; 94640; 99152; 99153; J7030; J7040; Q9967; C1725; C1769; C1874; C1887; C1894; C9600

== ENCOUNTER → 2021-03-28 10:50 | Outpatient (CLI) | payer MEDICARE, SELFPAY ==
[2021-02-22 08:14] VITALS: BMI 23.0
[2021-03-28 12:43] LABS: AST(SGOT) 25 U/L (15-37); Alanine Aminotransfer ALT/SGPT 34 U/L (13-56); Albumin, Serum 3.8 g/dL (3.2-5.0); Alkaline Phosphatase 78 U/L (45-117); Bilirubin, Direct 0.13 mg/dL (0.00-0.30); Cholesterol 126 mg/dL (200); Globulin 3.1 g/dL (2.2-4.2); High Density Lipoprotein 55 mg/dL; Protein, Total 6.9 g/dL (6.4-8.2); Triglycerides 80 mg/dL; Very Low Density Lipoprotein 16 mg/dL (5-40)
== END ==
PROVIDERS: PCP Family Medicine; Referring Provider Internal Medicine Cardiovascular Disease; Visit Provider Internal Medicine Cardiovascular Disease
DX: E78.00 Pure hypercholesterolemia, unspecified (principal)
CPT/HCPCS: 36415; 80061; 80076

== ENCOUNTER → 2021-04-18 14:16 | Outpatient (CLI) | payer MEDICARE, SELFPAY ==
[2020-10-03 10:01] VITALS: BMI 20.6
[2021-04-03 10:06] VITALS: BMI 23.0
[2021-04-18 14:15] VITALS: BP 133/70; PULSE 60; RESP 16; TEMP 36.9; O2SAT 98
[2021-04-18] MEDS: DENOSUMAB 60 MG/ML SC (14:26)
== END ==
PROVIDERS: PCP Family Medicine; Referring Provider Internal Medicine Endocrinology, Diabetes & Metabolism; Visit Provider Internal Medicine Endocrinology, Diabetes & Metabolism
DX: M81.0 Age-related osteoporosis without current pathological fracture (principal)
CPT/HCPCS: 96372; J0897

== ENCOUNTER → 2021-05-31 13:48 | Outpatient (CLI) | payer MEDICARE, SELFPAY ==
--- NOTE | 2021-05-31 13:51 | ECHOD_ITS ---
Reason For Study: CAD/ASHD Procedure This was a 2D Doppler, Color Flow transthoracic echocardiogram. Exam performed in department. Left Ventricle Normal LV size. Left ventricular systolic function is normal. The estimated ejection fraction is 65 %. Diastolic function is indeterminate. No regional wall motion abnormalities noted. Right Ventricle Normal RV size. Normal systolic function. Atria Normal left atrium. Normal right atrium. No doppler evidence for ASD. Bubble contrast study negative for right to left interatrial shunt. Mitral Valve There is mild mitral annular calcification. Extension of the mitral annular calcification on the base of the posterior mitral valve leaflet. Trivial mitral valve insufficiency. Tricuspid Valve Normal tricuspid valve. Moderate (2+) tricuspid valve insufficiency. Right ventricular systolic pressure estimated to be 29 mmHg. Aortic Valve Trisinus/trileaflet aortic valve. Normal aortic valve. Mild (1+) eccentric aortic valve insufficiency. Pulmonic Valve The pulmonic valve is not well visualized. Mild (1+) pulmonic valve insufficiency. Great Vessels Normal sized aortic root. Pericardium/Pleural Trivial pericardial effusion. There are no echocardiographic indications of cardiac tamponade. Medication Performed a rapid injection of agitated mix of 9 cc saline and 1cc air to assess for atrial septal defect. MMode/2D Measurements & Calculations LVIDd: 3.2 cm IVSd: 0.90 cm Ao root diam: 2.7 cm LVIDs: 2.2 cm LVPWd: 0.80 cm RVDd: 4.0 cm FS: 29.6 % LAV(MOD-bp): 28.9 ml LVAd ap4: 16.8 cm2 SV(MOD-sp4): 26.5 ml LAV(MOD-bp) Indexed: 20.2 ml/m2 LVLd ap4: 6.3 cm LAV(MOD-sp2): 25.5 ml EDV(MOD-sp4): 38.7 ml LAV(MOD-sp4): 30.6 ml EDV(sp4-el): 38.0 ml LVAs ap4: 8.6 cm2 LVLs ap4: 5.4 cm ESV(MOD-sp4): 12.3 ml ESV(sp4-el): 11.5 ml EF(MOD-sp4): 68.3 % EF(sp4-el): 69.8 % SV(sp4-el): 26.5 ml LA A4 area: 13.7 cm2 LA dimension(2D): 4.0 cm RA A4 area: 12.4 cm2 Doppler Measurements & Calculations MV E max earnest: 71.0 cm/sec Lat Peak E' Earnest: 8.1 cm/sec Med Peak E' Earnest: 4.5 cm/sec MV A max earnest: 83.4 cm/sec E/E' lat: 8.8 E/E' med: 15.7 MV E/A: 0.85 Ao V2 max: 113.8 cm/sec AI max earnest: 331.5 cm/sec LV V1 max: 95.5 cm/sec Ao max P.2 mmHg AI max P.0 mmHg LV V1 max P.6 mmHg Ao V2 mean: 82.5 cm/sec Ao mean P.0 mmHg AI dec slope: 147.3 cm/sec2 Ao V2 VTI: 25.5 cm AI P1/2t: 659.1 msec PA V2 max: 74.0 cm/sec TR max earnest: 255.7 cm/sec TR max P.1 mmHg ECHO/Echo Complete Interpretation Summary Left ventricular systolic function is normal. The estimated ejection fraction is 65 %. There is mild mitral annular calcification. Extension of the mitral annular calcification on the base of the posterior mitr al valve leaflet. Trivial mitral valve insufficiency. Moderate (2+) tricuspid valve insufficiency. Mild (1+) eccentric aortic valve insufficiency. Mild (1+) pulmonic valve insufficiency. Trivial pericardial effusion. There are no echocardiographic indications of cardiac tamponade. Right ventricular systolic pressure estimated to be 29 mmHg. Diastolic function is indeterminate. Ordering Physician: Christiano Lee Referring Physician: Peyton Goldberg Performed By: Marianne Keenan, RDCS, RVT
== END ==
PROVIDERS: PCP Family Medicine; Referring Provider Internal Medicine Cardiovascular Disease; Visit Provider Internal Medicine Cardiovascular Disease
DX: I25.10 Atherosclerotic heart disease of native coronary artery without angina pectoris (principal)
CPT/HCPCS: 93306; A4216

== ENCOUNTER 2021-10-05 12:10 | Outpatient (CLI) | payer MEDICARE, SELFPAY ==
--- NOTE | 2021-10-05 12:13 | BI_ITS ---
MAMMOGRAPHY - BILATERAL SCREENING REASON FOR EXAM: Female, 76 years old. Routine annual screening examination. PERTINENT HISTORY: Non-contributory. The patient is status post prior left stereotactic breast biopsy. TECHNIQUE: Digital bilateral breast yeny (3D mammographic acquisition) in the CC and MLO projections. 2-D mediolateral oblique (MLO) and craniocaudad (CC) views of both breasts were obtained. CAD: Full Field Digital Mammography with Computer Added Detection was performed. COMPARISON: Comparison is made with prior study dated 03/22/2021 and 08/03/2019. FINDINGS: Breast Composition: The breasts are almost entirely fatty. There are no dominant masses or suspicious calcifications. A tissue clip marker is once again seen in the upper outer quadrant of the left breast. Stable bilateral secretory calcifications. No other significant abnormalities are identified. There has been no significant change since the prior study. BI/SCRN MAMM (CAD)W/YENY BILAT IMPRESSION: Stable bilateral screening mammogram. Yearly follow-up mammogram recommended. (A) ASSESSMENT CATEGORY: BIRADS Category 2: Benign. A letter regarding these results will be sent to the patient by the facility within 30 days. Approximately 10% of breast cancers are not detected by mammography. A normal mammogram should not delay biopsy of a clinically suspicious abnormality. [id number] Electronically Signed: Michael Santiago MD at 13:08 EST ,
[2021-10-05 16:59] LABS: Vitamin D,25 Hydroxy 70.8 ng/mL
[2021-10-05 17:12] LABS: AST(SGOT) 23 U/L (15-37); Alanine Aminotransfer ALT/SGPT 30 U/L (13-56); Albumin, Serum 3.7 g/dL (3.2-5.0); Alkaline Phosphatase 77 U/L (45-117); Bilirubin, Direct 0.17 mg/dL (0.00-0.30); Cholesterol 134 mg/dL (200); Globulin 3.3 g/dL (2.2-4.2); High Density Lipoprotein 58 mg/dL; Triglycerides 98 mg/dL; Very Low Density Lipoprotein 20 mg/dL (5-40)
[2021-10-06 08:00] LABS: PTHIN 74.4 pg/mL (18.4-80.1)
== END 2021-10-05 23:59 | disposition short-term general hospital (02) ==
PROVIDERS: Internal Medicine Cardiovascular Disease; Internal Medicine Endocrinology, Diabetes & Metabolism; PCP Family Medicine; Referring Provider Family Medicine; Visit Provider Family Medicine
DX: Z12.31 Encounter for screening mammogram for malignant neoplasm of breast (principal); M81.0 Age-related osteoporosis without current pathological fracture; E55.9 Vitamin D deficiency, unspecified; E78.00 Pure hypercholesterolemia, unspecified; I25.10 Atherosclerotic heart disease of native coronary artery without angina pectoris; I10 Essential (primary) hypertension
CPT/HCPCS: 36415; 77063; 77067; 80061; 80076; 82306; 82310; 83970

== ENCOUNTER 2021-10-17 13:31 | Outpatient (CLI) | payer MEDICARE, SELFPAY ==
[2021-04-03 10:06] VITALS: BMI 23.0
[2021-10-17 14:05] VITALS: BP 127/65; PULSE 78; RESP 16; TEMP 36.6; O2SAT 98
[2021-10-17] MEDS: DENOSUMAB 60 MG/ML SC (14:11)
== END 2021-10-17 23:59 | disposition home or self-care (01) ==
LOC: MEDOUTP 13:32
PROVIDERS: PCP Family Medicine; Referring Provider Internal Medicine Endocrinology, Diabetes & Metabolism; Visit Provider Internal Medicine Endocrinology, Diabetes & Metabolism
DX: M81.0 Age-related osteoporosis without current pathological fracture (principal)
CPT/HCPCS: 96372; J0897

== ENCOUNTER → 2022-04-20 | Outpatient (CLI) | payer MEDICARE, SELFPAY ==
[2022-04-20 13:30] VITALS: BP 131/79; PULSE 68; RESP 16; TEMP 36.4; O2SAT 98; BMI 22.2
[2022-04-20] MEDS: DENOSUMAB 60 MG/ML SC (13:32)
== END | disposition home or self-care (01) ==
LOC: MEDOUTP 13:14
PROVIDERS: PCP Family Medicine; Referring Provider Internal Medicine Endocrinology, Diabetes & Metabolism; Visit Provider Internal Medicine Endocrinology, Diabetes & Metabolism
DX: M81.0 Age-related osteoporosis without current pathological fracture (principal)
CPT/HCPCS: 96372; J0897

== ENCOUNTER → 2022-05-24 | Outpatient (CLI) | payer MEDICARE, SELFPAY ==
[2022-05-24 12:29] LABS: Absolute Lymphocyte Count 1.19 X10^3/uL (0.83-4.51); Basophil# 0.03 X10^3/uL; Basophil% 0.3 % (0-1); Eosinophil# 0.06 X10^3/uL; Eosinophils% 0.7 % (0-5); Hematocrit 42.8 % (37-47); Hemoglobin 14.1 g/dL (12.0-15.0); Lymphocyte # 1.19 X10^3/ul (0.83-4.51); Mean Corp Hgb Conc 32.9 g/dL (32-36); Mean Corpuscular Hgb 34.4 pg (27.0-32.0); Mean Corpuscular Volume 104.4 fL (81-99); Mean Platelet Vol. 11.7 fl (6.2-12.0); Monocyte# 0.88 X10^3/uL; Monocyte% 9.6 % (0-10); NRBC Flagged by Analyzer 0 % (0-5); Neutrophil # 6.95 X10^3/uL (2.7-7.7); Neutrophil % 76.1 % (47-70); Platelet Count 254 K/mm3 (150-450); RBC Distribution Width CV 12.6 % (11.6-14.6); RBC Distribution Width SD 48.5 fl (35.1-43.9); White Blood Count 9.1 K/mm3 (4.4-11.0)
[2022-05-24 13:26] LABS: Anion Gap 6 (5-15); BUN 19 mg/dL (7-18); BUN/Creat Ratio 21.6 RATIO (10-20); Calcium,Total 9.6 mg/dL (8.5-10.1); Chloride 104 mmol/L (98-107); Creatinine, Serum 0.88 mg/dL (0.55-1.02); EST Glomerular Filtration Rate 66 mL/min (>60); Est Glom Filt Rate - Afr Amer 80 mL/min (>60); Glucose 95 mg/dL (74-106); Magnesium 2.3 mg/dL (1.6-2.6); Sodium Level 141 mmol/L (136-145); T4 Free Direct 1.06 ng/dL (0.76-1.46); Thyroid Stim Hormone (TSH) 2.22 uIU/mL (0.358-3.74)
== END | disposition home or self-care (01) ==
PROVIDERS: PCP Family Medicine; Referring Provider Nurse Practitioner Gerontology; Visit Provider Nurse Practitioner Gerontology
DX: R06.00 Dyspnea, unspecified (principal); R53.83 Other fatigue
CPT/HCPCS: 80048; 83735; 83880; 84439; 84443; 85025

== ENCOUNTER → 2022-06-07 | Outpatient (CLI) | payer MEDICARE, SELFPAY ==
[2022-06-07 11:49] LABS: AST(SGOT) 35 U/L (15-37); Alanine Aminotransfer ALT/SGPT 49 U/L (13-56); Albumin, Serum 3.6 g/dL (3.2-5.0); Alkaline Phosphatase 78 U/L (45-117); Bilirubin, Direct 0.23 mg/dL (0.00-0.30); Cholesterol 120 mg/dL (200); Globulin 3.7 g/dL (2.2-4.2); High Density Lipoprotein 55 mg/dL; Protein, Total 7.3 g/dL (6.4-8.2); Triglycerides 73 mg/dL; Very Low Density Lipoprotein 15 mg/dL (5-40)
[2022-06-07 11:51] LABS: Anion Gap 5 (5-15); BUN 18 mg/dL (7-18); BUN/Creat Ratio 19.9 RATIO (10-20); Calcium,Total 9.6 mg/dL (8.5-10.1); Chloride 103 mmol/L (98-107); EST Glomerular Filtration Rate 64 mL/min (>60); Est Glom Filt Rate - Afr Amer 77 mL/min (>60); Glucose 109 mg/dL (74-106); Potassium 3.6 mmol/L (3.5-5.1); Sodium Level 139 mmol/L (136-145)
== END | disposition home or self-care (01) ==
LOC: LAB 10:54
PROVIDERS: Nurse Practitioner Gerontology; PCP Family Medicine; Visit Provider Internal Medicine Cardiovascular Disease
DX: R06.09 Other forms of dyspnea (principal); I10 Essential (primary) hypertension; I25.10 Atherosclerotic heart disease of native coronary artery without angina pectoris; E78.00 Pure hypercholesterolemia, unspecified
CPT/HCPCS: 36415; 80048; 80061; 80076

== ENCOUNTER → 2022-06-12 | Outpatient (CLI) | payer MEDICARE, SELFPAY ==
--- NOTE | 2022-06-12 06:57 | ECHOD_ITS ---
Reason For Study: Dyspnea/SOB Procedure This was a 2D Doppler, Color Flow transthoracic echocardiogram. Exam performed in department. Left Ventricle Normal LV size. Left ventricular systolic function is normal. The estimated ejection fraction is 60 %. Diastolic function is indeterminate. No regional wall motion abnormalities noted. Right Ventricle Normal RV size. Normal systolic function. Atria Normal left atrium. Normal right atrium. No doppler evidence for ASD. Mitral Valve There is mild to moderate mitral annular calcification. Extension of the mitral annular calcification onto the base of the posterior mitral valve leaflet. Mild diffuse mitral valve thickening. The mitral papillary muscle appears thickened and/or calcified. Mild (1+) mitral valve insufficiency. Tricuspid Valve Normal tricuspid valve. Mild to moderate (1-2+) tricuspid valve insufficiency. Right ventricular systolic pressure estimated to be 30 mmHg. Aortic Valve Trisinus/trileaflet aortic valve. Mild diffuse aortic valve thickening. Trivial aortic valve insufficiency. Pulmonic Valve The pulmonic valve is not well visualized. Great Vessels The aortic root is not well visualized. Pericardium/Pleural No pericardial effusion. MMode/2D Measurements & Calculations LVIDd: 3.5 cm IVSd: 0.88 cm LA dimension: 3.7 cm LVIDs: 2.4 cm LVPWd: 0.97 cm RVDd: 3.3 cm FS: 30.1 % LAV(MOD-bp): 38.5 ml LA A4 area: 13.9 cm2 RA A4 area: 11.8 cm2 LAV(MOD-bp) Indexed: 27.2 ml/m2 LAV(MOD-sp2): 45.3 ml LAV(MOD-sp4): 32.6 ml Time Measurements MV dec time: 0.40 sec Doppler Measurements & Calculations MV E max earnest: 71.3 cm/sec Lat Peak E' Earnest: 7.2 cm/sec Med Peak E' Earnest: 4.4 cm/sec MV A max earnest: 86.4 cm/sec E/E' lat: 9.9 E/E' med: 16.1 MV E/A: 0.83 MV V2 max: 87.7 cm/sec MV P1/2t max earnest: 74.5 cm/sec Ao V2 max: 95.7 cm/sec MV max P.1 mmHg MV P1/2t: 126.8 msec Ao max P.7 mmHg MV V2 mean: 49.1 cm/sec MV dec slope: 172.1 cm/sec2 MV mean P.1 mmHg MVA(P1/2t): 1.7 cm2 MV V2 VTI: 30.7 cm AI max earnest: 417.0 cm/sec LV V1 max: 87.3 cm/sec PA V2 max: 77.5 cm/sec AI max P.8 mmHg LV V1 max P.1 mmHg AI dec slope: 187.2 cm/sec2 AI P1/2t: 652.5 msec PI end-d earnest: 91.1 cm/sec TR max earnest: 257.1 cm/sec TR max P.5 mmHg ECHO/Echo Complete Interpretation Summary Left ventricular systolic function is normal. The estimated ejection fraction is 60 %. There is mild to moderate mitral annular calcification. Extension of the mitral annular calcification onto the base of the posterior mi tral valve leaflet. Mild diffuse mitral valve thickening. The mitral papillary muscle appears thickened and/or calcified. Mild (1+) mitral valve insufficiency. Mild to moderate (1-2+) tricuspid valve insufficiency. Mild diffuse aortic valve thickening. Trivial aortic valve insufficiency. Right ventricular systolic pressure estimated to be 30 mmHg. Diastolic function is indeterminate. Ordering Physician: Federica Mayo Referring Physician: Peyton Goldberg Performed By: Fernando Ramirez RCS
--- NOTE | 2022-06-12 09:04 | STRESSREP_ITS ---
Stress Test Report Date: 06-12-2022 Procedure: Pharmacologic stress nuclear imaging study Indications: CAD; status post previous non-ST segment elevation [place]; status post PCI; hypertension tension; dyspnea on exertion; fatigue Consent: Per the patient Procedure: The patient underwent pharmacologic (Regadenoson 0.4mg ) evaluation with a peak heart rate of 82 beats per minute (57%predicted maximal heart rate) and a peak blood pressure of 160/90 mmHg. The baseline ECG demonstrated normal sinus rhythm; poor R wave progression. The peak pharmacologic ECG demonstrated no obvious ECG changes. There were no cardiac dysrhythmias pretest, during pharmacologic infusion, or recovery. There was no complaint of chest discomfort during pharmacologic infusion or recovery. The examination was discontinued secondary to completion of protocol. Impression: 1. Pharmacologic (Regadenoson) evaluation 2. Peak pharmacologic ECG with no obvious ECG changes. 3. There were no cardiac dysrhythmias pretest, during pharmacologic infusion, or recovery. 4. Nuclear images pending Myocardial perfusion imaging study: Technique: The patient was injected with 11.1 millicuries of technetium 99m Cardiolite and subsequently rest SPECT Cardiolite nuclear imaging was obtained in the horizontal long, vertical long, and short axis views. The patient underwent pharmacologic (Regadenoson) evaluation with a peak heart rate of 82 beats per minute (57% percent predicted maximal heart rate) and a peak blood pressure of 160/90 mmHg. The patient was injected with 32.9 millicuries of technetium 99m Cardiolite and subsequently stress SPECT Cardiolite nuclear imaging was obtained in the horizontal long, vertical long, and short axis views. A gated Cardiolite study at peak stress was obtained. Interpretation: Rest and stress SPECT Cardiolite nuclear imaging status post realignment, normalization, and attenuation correction demonstrate relative uniform tracer uptake and myocardial perfusion appearing within normal limits. There is end systolic thickening and brightening. The gated Cardiolite study demonstrates myocardial thickening and inward wall motion. The reported LVEF is 68%. Impression: 1. Rest and stress SPECT Cardiolite nuclear imaging demonstrate relative uniform tracer uptake and myocardial perfusion appearing within normal limits. 2. The gated Cardiolite study reports an LVEF of 68%. This note was generated with [employer] software. It may contain incorrect words, spelling, and punctuation that were not noted in checking the note before signing.
== END | disposition home or self-care (01) ==
LOC: CVS 06:52
PROVIDERS: PCP Family Medicine; Visit Provider Nurse Practitioner Gerontology
DX: R06.02 Shortness of breath (principal)
CPT/HCPCS: 78452; 93017; 93306; A9500; A4216; J2785

== ENCOUNTER → 2022-07-03 | Outpatient (CLI) | payer MEDICARE, SELFPAY ==
--- NOTE | 2022-07-03 12:25 | RAD_ITS ---
HISTORY: Dyspnea. TECHNIQUE: XR Chest 2 Views. COMPARISON: 01/24/2021. FINDINGS: CARDIOMEDIASTINAL BORDERS: Cardiac silhouette within normal limits in size. Mediastinal contour unchanged with calcification and mild tortuosity of the aorta. LUNGS: Calcified left apical granuloma again seen. PLEURA: No pleural effusion or pneumothorax seen. OSSEOUS STRUCTURES: Old right fifth rib fracture. Old sternal fracture. Right shoulder arthroplasty noted. Scoliosis and degenerative change with lumbar fixation hardware. Chronic lower thoracic compression fracture. RAD/Chest PA and Lateral IMPRESSION: No acute cardiopulmonary process identified. Electronically Signed: Kaya Olivera MD at 12:49 EDT ,
[2022-07-03 13:17] LABS: Absolute Lymphocyte Count 1.07 X10^3/uL (0.83-4.51); Absolute Neutrophil Count 4.8 X10^3/uL (2.0-7.7); Basophil# 0.04 X10^3/uL; Basophil% 0.6 % (0-1); Eosinophil# 0.11 X10^3/uL; Eosinophils% 1.7 % (0-5); Hematocrit 45.8 % (37-47); Hemoglobin 15.6 g/dL (12.0-15.0); Lymphocyte # 1.07 X10^3/ul (0.83-4.51); Lymphocyte % 16.2 % (19-41); Mean Corp Hgb Conc 34.1 g/dL (32-36); Mean Corpuscular Hgb 35.7 pg (27.0-32.0); Mean Corpuscular Volume 104.8 fL (81-99); Monocyte# 0.56 X10^3/uL; Monocyte% 8.5 % (0-10); NRBC Flagged by Analyzer 0 % (0-5); Neutrophil % 72.7 % (47-70); Platelet Count 218 K/mm3 (150-450); RBC Distribution Width CV 12.3 % (11.6-14.6); RBC Distribution Width SD 47.9 fl (35.1-43.9); Red Blood Count 4.37 M/mm3 (4.2-5.4); White Blood Count 6.6 K/mm3 (4.4-11.0)
[2022-07-03 13:43] LABS: Anion Gap 2 (5-15); BUN 13 mg/dL (7-18); BUN/Creat Ratio 16.6 RATIO (10-20); Calcium,Total 9.1 mg/dL (8.5-10.1); Chloride 108 mmol/L (98-107); Creatinine, Serum 0.78 mg/dL (0.55-1.02); EST Glomerular Filtration Rate 75 mL/min (>60); Est Glom Filt Rate - Afr Amer 91 mL/min (>60); Glucose 90 mg/dL (74-106); Potassium 3.8 mmol/L (3.5-5.1); Sodium Level 141 mmol/L (136-145)
== END | disposition home or self-care (01) ==
LOC: RAD 12:22
PROVIDERS: PCP Family Medicine; Referring Provider Nurse Practitioner Gerontology; Visit Provider Nurse Practitioner Gerontology
DX: R06.00 Dyspnea, unspecified (principal); R53.83 Other fatigue
CPT/HCPCS: 36415; 71046; 80048; 83880; 85025

== ENCOUNTER → 2022-10-16 | Outpatient (CLI) | payer MEDICARE, SELFPAY ==
[2022-10-16 12:53] LABS: Vitamin B12 592 pg/mL (211-911); Vitamin D,25 Hydroxy 63.8 ng/mL
== END | disposition home or self-care (01) ==
PROVIDERS: PCP Family Medicine; Visit Provider Internal Medicine Endocrinology, Diabetes & Metabolism
DX: D53.9 Nutritional anemia, unspecified (principal); E55.9 Vitamin D deficiency, unspecified
CPT/HCPCS: 36415; 82306; 82607

== ENCOUNTER → 2022-10-19 | Outpatient (CLI) | payer MEDICARE, SELFPAY ==
[2022-10-19 09:59] VITALS: BP 144/80; PULSE 60; RESP 16; TEMP 36.1; O2SAT 97; BMI 22.2
[2022-10-19] MEDS: DENOSUMAB 60 MG/ML SC (10:01)
== END | disposition home or self-care (01) ==
LOC: MEDOUTP 09:45
PROVIDERS: PCP Family Medicine; Referring Provider Internal Medicine Endocrinology, Diabetes & Metabolism; Visit Provider Internal Medicine Endocrinology, Diabetes & Metabolism
DX: M81.0 Age-related osteoporosis without current pathological fracture (principal)
CPT/HCPCS: 96372; J0897

== ENCOUNTER → 2022-11-30 | Outpatient (CLI) | payer MEDICARE, SELFPAY ==
[2022-11-30 17:56] LABS: Absolute Neutrophil Count 3.6 X10^3/uL (2.0-7.7); Basophil# 0.04 X10^3/uL; Basophil% 0.7 % (0-1); Eosinophil# 0.17 X10^3/uL; Eosinophils% 2.9 % (0-5); Hematocrit 42.7 % (37-47); Hemoglobin 14.3 g/dL (12.0-15.0); Lymphocyte % 22.3 % (19-41); Mean Corp Hgb Conc 33.5 g/dL (32-36); Mean Corpuscular Hgb 35.5 pg (27.0-32.0); Mean Platelet Vol. 12.2 fl (6.2-12.0); Monocyte# 0.75 X10^3/uL; Monocyte% 12.8 % (0-10); NRBC Flagged by Analyzer 0 % (0-5); Neutrophil # 3.57 X10^3/uL (2.7-7.7); Neutrophil % 61.1 % (47-70); Platelet Count 220 K/mm3 (150-450); RBC Distribution Width CV 12.4 % (11.6-14.6); RBC Distribution Width SD 48.6 fl (35.1-43.9); Red Blood Count 4.03 M/mm3 (4.2-5.4); White Blood Count 5.8 K/mm3 (4.4-11.0)
[2022-11-30 18:13] LABS: Anion Gap 4 (5-15); BUN 22 mg/dL (7-18); BUN/Creat Ratio 22.1 RATIO (10-20); Calcium,Total 9.5 mg/dL (8.5-10.1); Chloride 103 mmol/L (98-107); Creatinine, Serum 0.99 mg/dL (0.55-1.02); EST Glomerular Filtration Rate 57 mL/min (>60); Est Glom Filt Rate - Afr Amer 69 mL/min (>60); Glucose 80 mg/dL (74-106); Potassium 3.8 mmol/L (3.5-5.1); Sodium Level 139 mmol/L (136-145)
== END | disposition home or self-care (01) ==
LOC: BFHLAB 15:10
PROVIDERS: PCP Family Medicine; Visit Provider Family Medicine
DX: I10 Essential (primary) hypertension (principal)
CPT/HCPCS: 36415; 80048; 85025

== ENCOUNTER 2022-12-20 12:35 | Observation (INO) | payer MEDICARE, SELFPAY ==
--- NOTE | 2022-12-14 08:30 | RAD_ITS ---
STUDY: X-RAY CHEST REASON FOR EXAM: Female, 77 years old. Preop. No chest complaints. TECHNIQUE: PA and lateral views of the chest. COMPARISON: July 03, 2022. FINDINGS: The lungs are clear and expanded. There is no demonstrated pleural abnormality. Normal size heart. Normal mediastinum and constantine. Normal visualized pulmonary arteries. There is atherosclerotic calcification of the aortic arch with tortuosity. There is exaggerated kyphosis and degenerative changes of the thoracic spine. There is thoracolumbar fusion and dorsal column stimulator. Right humeral head replacement. Normal visualized ribs, clavicles, and shoulders. There is no demonstrated abnormality of the visualized soft tissue structures of the upper abdomen. RAD/Chest PA and Lateral IMPRESSION: 1. Interval dorsal column stimulator placement. 2. No acute cardiopulmonary disease or other interval change. Electronically Signed: Jama Camejo DO at 18:59 EDT ,
[2022-12-14 09:54] LABS: AST(SGOT) 35 U/L (15-37); Alanine Aminotransfer ALT/SGPT 34 U/L (13-56); Albumin, Serum 3.8 g/dL (3.2-5.0); Alkaline Phosphatase 80 U/L (45-117); Bilirubin, Direct 0.14 mg/dL (0.00-0.30); Cholesterol 133 mg/dL (200); Globulin 3.1 g/dL (2.2-4.2); High Density Lipoprotein 57 mg/dL; Protein, Total 6.9 g/dL (6.4-8.2); Triglycerides 62 mg/dL; Very Low Density Lipoprotein 12 mg/dL (5-40)
[2022-12-14 10:17] LABS: International Normalized Ratio 1.1; Prothrombin Time (Protime)PT. 14.2 SECONDS (11.7-14.9)
[2022-12-14 10:18] LABS: Partial Thromboplast Time 32.6 Seconds (24.1-36.2)
[2022-12-14 10:28] LABS: Thyroid Stim Hormone (TSH) 3.65 uIU/mL (0.358-3.74)
[2022-12-20] VITALS (15 sets, daily range): BP systolic 133–175; BP diastolic 58–96; PULSE 65–80; RESP 12–18; TEMP 35.8–37.2; O2SAT 2–100; BMI 23.0
[2022-12-20] MEDS: Lactated Ringers 1,000 ML 15 ML IV ×2 (11:31→17:45)
--- NOTE | 2022-12-20 12:32 | DS.PCM_ITS ---
Providers Date of Admission: 12/20/22 Primary Care Physician: Dr. Peyton Goldberg MD Reason For Visit: HARDWARE REMOVAL SPINAL CORD STIM Diagnosis Discharge Diagnosis (1) Lumbar spondylosis: Status: Acute Code(s): M47.816 - Spondylosis without myelopathy or radiculopathy, lumbar region Medications at Discharge Home Medications bupropion HCl 150 mg tablet,12 hr sustained-release 150 mg PO BID anxiety 12/28/13 omeprazole 20 mg capsule,delayed release 20 mg PO QHS acid reflux 12/28/13 atorvastatin 40 mg tablet 40 mg PO QHS #90 tabs 01/26/21 calcium carbonate 600 mg-vitamin D3 10 mcg (400 unit) tablet 1 tab PO DAILY 02/14/21 cyclobenzaprine 5 mg tablet 5 mg PO TID PRN Muscle Pain 02/14/21 denosumab 60 mg/mL subcutaneous syringe (Prolia) 60 mg subcut [id number] bone health #1 mL 04/19/22 levothyroxine 50 mcg tablet 50 mcg PO DAILY #90 tabs 05/23/22 buspirone 15 mg tablet 15 mg PO BID MENTAL HEALTH 05/24/22 fluticasone propionate 44 mcg/actuation HFA aerosol inhaler 2 puff inhalation BID PRN SOB 05/24/22 lisinopril 10 mg tablet 10 mg PO DAILY 05/24/22 amlodipine 2.5 mg tablet 2.5 mg PO DAILY #90 tabs 06/28/22 furosemide 20 mg tablet 20 mg PO DAILY #30 tabs 07/03/22 metoprolol succinate 25 mg tablet,extended release 24 hr 25 mg PO BID #180 tabs 08/08/22 hydrocodone-acetaminophen 5-325mg 5mg-325mg 1 tab PO Q8H PRN Pain 7 days #90 tabs 12/20/22 Hospital Course Operations - (Explantation of spinal cord stimulator percutaneous leads, T9-10 partial bilateral laminectomies, implantation of permanent spinal cord stimulator lead) Summary of Care Provided Minutes Spent on Discharge: 15 Hospital Course: The patient is a 77-year-old female who underwent explantation of spinal cord stimulator percutaneous leads with T9-10 bilateral partial laminectomies and implantation of permanent spinal cord stimulator lead on 12/20/2022. She was subsequently admitted. The hospitalist was consulted for medical management. She progressed well. Her pain was well controlled and she was mobilizing well. No significant medical issues were reported and she was subsequently discharged home on 12/21/2022 to follow-up with Dr. Mendenhall in 3 weeks Physical Exam Const alert, oriented x3 and no apparent distress General Appearance: cooperative, comfortable and well kempt HEENT normocephalic and head/scalp atraumatic Neck full ROM General: normal visual inspection Chest inspection of chest normal and palpation of chest normal Resp normal respiratory effort and normal air movement Effort and Inspection: able to speak in complete sentences Cardio regular rate and peripheral pulses 2+ throughout GI soft to palpation, non-tender and non-distended Back/Spine Back/Spine Narrative: Dressings clean dry and intact. Incisions well approximated with interrupted sutures in place. No tenderness erythema drainage or fluctuance Cervical Spine: cervical ROM normal Thoracic Spine / Upper Back: normal to inspection Lumbar Spine / Lower Back: normal to inspection Extremity normal to inspection, full ROM, normal capillary refill, no clubbing, cyanosis or edema and no calf tenderness Skin no rashes or lesions noted General Skin Exam: no breakdown Neuro oriented x3, CN's II-XII intact bilaterally, moves all extremities, no focal motor deficits, no sensory deficits noted and deep tendon reflexes 2+ bilaterally Motor Exam: strength 5/5 throughout and muscle tone normal throughout Weight / BMI Weight Weight: 110 lb 0.171 oz Body Mass Index (BMI) 23.0 ABG / Lab / Microbiology Data Result Diagrams: 12/21/22 05:45 12/21/22 05:45 Microbiology: Microbiology 12/14/22 08:55 Swab (Method) Nasal Screen MRSA/MSSA - Final D/C Instructions Discharge Diet: No restrictions Lifting Restrictions: No repetitive bending twisting or lifting greater than 5 pounds Call your doctor if your incision/area has: Continuous Slow Oozing, Sudden Inc reased Bleeding, Increased Pain/ Swelling, Increased Redness, Foul Smelling Discharge and Swelling at the incision site Call your doctor if you observe: Fever of 101 or Higher, Coldness, Increased Pain, Numbness or Tingling, Change in Color, Inability to urinate, Inability to have a bowel movement, Using more than 1 pad per hour, Shortness of breath, Dizziness, Fainting spells, Swelling in the ankles, Chest pain, Prolonged hiccupping, Increased palpitations (irregular heartbeat), Calf discomfort and Uncontrolled pain Cleanse incision/area with: Do not get Incision Wet and Keep Dressing Clean & Dry Additional Dressing/Incision Instructions: Change dressings daily with iodine gauze and tape. Use waterproof dressings to shower Please Follow Up With: Hiram Mendenhall DO When: 3 weeks Meaningful Use Info Meaningful Use Diagnoses (Choose all that apply): None applicable Discharge Plan Admission Admit Date/Time: 12/20/22 12:35 Attending Provider: Hiram Mendenhall Primary Care Provider: Peyton Goldberg Consulting Providers: Acacia Mercado ; Acacia Escobedo ; Yue Jordan ; Destiney Luna ; Klever Chand ; Yoel Eaton ; Cong Carter ; Dana Figueroa ; Reginaldo Frye ; Edgard Bonilla ; Gregg Cui ; Keely Bonilla ; Richard White ; Shirin Dhaliwal ; Johnathan Eaton ; Stepan Vee ; Christiano Casanova ; Yamileth Merchant ; Silas Rowe ; Joslyn Farfan NP ; Catalino Eckert Instructions Additional Instructions / Restrictions: 1. During your procedure, you received sedation through your IV. Please follow these instructions for the next 24 hours: Do not drive a motor vehicle, do not drink any alcoholic beverages, and do not sign any legal documents or make personal or business decisions. A responsible adult should stay with you at least 6 hours after the procedure. 2. Keep your surgical site/incision clean and the dressing dry and intact. You may sponge bathe, but no showering or sitting in a bathtub during your trial or for one week after the permanent implant. You may use an ice pack at the surgical site to reduce any swelling or discomfort. 3. Monitor the incision site for any signs or symptoms of infection. Watch for redness, excessive swelling or drainage, or continued pain at the incision site after 3 days. Contact your physician immediately for a fever, chills or a temperature of 101.5? F or greater. 4. Take your medication exactly as prescribed by your physician. Do not attempt to wean yourself off any of your medications even though your pain is improving. This process needs to be carefully monitored by your doctor. Take any antibiotics prescribed exactly as directed and until they are gone. 5. Avoid stretching, bending, pulling, twisting or any sudden movements. Do not bend or twist at the waist. Do not raise your arms above your head; however, you may brush your hair or scratch your head, but nothing higher than that. Any movements higher than that could cause your electrode wires to move from their current position. No not lie on your stomach. Do not bend at the waist to put your shoes on; you must lift your legs up to do this. 6. No lifting greater than 5 pounds. A gallon of milk weighs more than 5 pounds, so you may not lift this. Try to be careful. Any falls could dislodge the leads. 7. Do not operate a motor vehicle, equipment or a power tool while your stimulator is on. If you need to use any equipment, you must turn your stimulator off first. As a passenger in a motor vehicle, you may use your stimulator. 8. Do not have any manipulation done by a chiropractor or any other physician without first consulting with the physician who placed your spinal cord stimulator. 9. Without movement, you may note changes in the intensity of the stimulator. For example, you may notice a different stimulation when you are standing than when you are sitting or lying down. This is normal the first few weeks following the implant and will stabilize over time. 10. Please contact our office if you are even scheduled for a CT scan or an MRI. 11. Please call us if you have any questions, problems or concerns. Discharge Orders/Prescriptions Prescriptions: New hydrocodone-acetaminophen 5-325 mg tablet 1 tab PO Q8H PRN (Reason: Pain) 7 Days Qty: 90 0RF Continued cyclobenzaprine 5 mg tablet 5 mg PO TID PRN (Reason: Muscle Pain) calcium carbonate-vitamin D3 600 mg(1,500mg) -400 unit tablet 1 tab PO DAILY fluticasone propionate 44 mcg/actuation HFA aerosol inhaler 2 puff inhalation BID PRN (Reason: SOB) Label Comments: inhale 2 puffs by mouth twice a day lisinopril 10 mg tablet 10 mg PO DAILY furosemide 20 mg tablet 20 mg PO DAILY Qty: 30 11RF bupropion HCl 150 MG tablet extended release 12 hr 150 mg PO BID omeprazole 20 MG capsule 20 mg PO QHS atorvastatin 40 mg Tablet 40 mg PO QHS Qty: 90 0RF buspirone 15 mg tablet 15 mg PO BID Prolia 60 mg/mL syringe 60 mg subcut [id number] Qty: 1 1RF levothyroxine 50 mcg tablet 50 mcg PO DAILY Qty: 90 1RF amlodipine 2.5 mg tablet 2.5 mg PO DAILY Qty: 90 3RF metoprolol succinate 25 mg tablet extended release 24 hr 25 mg PO BID Qty: 180 3RF Discontinued lorazepam 0.5 mg tablet 0.5 mg PO TID PRN (Reason: Anxiety) oxycodone-acetaminophen 5-325 mg tablet 1 tab PO Q8H PRN (Reason: pain) nabumetone 750 mg tablet 750 mg PO BID Label Comments: TAKE 1 TABLET BY MOUTH TWICE A DAY aspirin [Ady Low Dose Aspirin] 81 mg Tablet,Delayed Release (Dr/Ec) 81 mg PO DAILY trazodone 50 mg tablet 50 mg PO DAILY PRN (Reason: sleep) Referrals / Follow Up: Peyton Goldberg MD [Primary Care Provider] - Hiram Mendenhall DO [Med Staff - Active Staff] - Disposition Disposition (needs filled in before D/C Order can be placed): Home, Self Care
--- NOTE | 2022-12-20 12:32 | PCM.OPRPT ---
Problems Associated Problem List Diagnoses (1) Lumbar spondylosis: Report of Operation Date of Procedure: 12/20/22 Pre-Operative Diagnosis: 1. Lumbar spondylosis 2. Chronic back pain Post-Operative Diagnosis: 1. Lumbar spondylosis 2. Chronic back pain Surgery/Procedure Performed:: 1. Explantation of spinal cord stimulator trial leads 2. T9-10 partial bilateral laminectomies 3. Dorsal column stimulator paddle lead placement 4. 1 hour of complex programming postoperatively Description of Surgical Findings:: The patient is a 77-year-old female with prior implantation of percutaneous spinal cord stimulator leads. The device was functioning properly in controlling her pain immediately following surgery. However the stimulator became less effective. Image studies were performed showing lead migration. The patient has opted for operative intervention understanding the risk to include but not limited to infection, bleeding, damage to nerves arteries and veins, possibility of spinal fluid leak, paralysis, hardware failure, continued pain, need for further surgery, deep vein thrombosis, pulmonary embolism, heart attack, risk of stroke or The patient was identified in the preoperative holding area. There she received preoperative IV antibiotics Ancef and was then transferred to the operative suite. Once in the operative suite after general endotracheal anesthesia was established the patient was transferred to the [place] operating table in the prone position. All bony prominences were padded. The thoracolumbar spine was prepped and draped in a standard surgical fashion. The prior two 1 cm incisions over her right thoracolumbar region were reopened with a scalpel. The previously implanted spinal cord stimulator leads were located along with the corresponding anchors. Her prior incision over her spinal cord stimulator generator was reopened with a scalpel. The leads were disconnected from the battery and the leads were removed. Then an incision was made over the thoracolumbar spine centered over the T9-10 interlaminar space and taken to the thoracic fascia. The fascia was divided and subperiosteal dissection was taken down to the level of the bilateral T9-10 facet joints. Deep retractors were placed. Partial bilateral laminectomies were performed at the T9-10 interspace. At this point a paddle lead was placed spanning from T7 inferiorly. This was then anchored to the fascia using silk suture. Wires from the stimulator were then passed subcutaneously to the previous battery pocket and connected to the generator battery. All incisions were then thoroughly irrigated and closed with #1 Vicryl for the fascia, 2-0 Vicryl for subcutaneous and 2-0 nylon for skin. A sterile dressing was applied with 4 x 4's ABD and tape. Sponge instrument and needle counts were correct at the end of the case. Neurophysiologic monitoring was maintained at baseline throughout the duration of the case. The patient was extubated and taken to the PACU without incident. Then 1 hour was spent with complex programming when the patient recovered. Ruchi Stallworth PA-C was present throughout the duration of the case and necessary for critical parts of the case including retraction and closure Surgeon: Hiram Mendenhall metallurgical technician: Ruchi Stallworth Type of Anesthesia: General Specimen's removed: Percutaneous spinal cord stimulator leads Estimated Blood Loss (mL): 25 cc Fluids Replaced: 1800 cc Grafts/Implants Used: [employer] Complications None Admit VTE Documentation VTE Present on Admission: No
--- NOTE | 2022-12-20 12:32 | PCM.PN.ORT ---
Subjective Subjective The patient was seen and examined postoperatively in the PACU. She is resting comfortably. Her pain is minimal. She denies any acute numbness tingling or weakness Objective Data Objective Data Vital Signs: Vital Signs Temp Pulse Resp BP Pulse Ox O2 Del Method 99 F 80 16 161/80 H 98 Room Air 12/20/22 11:23 12/20/22 11:23 12/20/22 11:23 12/20/22 11:23 12/20/22 11:23 12/20/22 11:23 Oxygen Delivery Method Room Air Weight: 110 lb 0.171 oz Body Mass Index (BMI) 23.0 Lab / Micro Data Result Diagrams: 12/21/22 05:45 12/21/22 05:45 Micro: Microbiology 12/14/22 08:55 Swab (Method) Nasal Screen MRSA/MSSA - Final Physical Exam Const alert, oriented x3 and no apparent distress General Appearance: cooperative, comfortable and well kempt HEENT normocephalic and head/scalp atraumatic Head and Scalp: normal to inspection Eyes EOMs intact bilaterally and conjunctivae normal Neck full ROM General: normal visual inspection Chest inspection of chest normal and palpation of chest normal Resp normal respiratory effort Cardio regular rate, regular rhythm and peripheral pulses 2+ throughout GI soft to palpation, non-tender and non-distended Back/Spine Back/Spine Narrative: Dressings clean dry and intact Cervical Spine: cervical ROM normal Thoracic Spine / Upper Back: normal to inspection Lumbar Spine / Lower Back: normal to inspection Extremity normal to inspection, full ROM, normal capillary refill, no clubbing, cyanosis or edema and no calf tenderness Skin no rashes or lesions noted General Skin Exam: no breakdown Neuro oriented x3, CN's II-XII intact bilaterally, moves all extremities, no focal motor deficits, no sensory deficits noted and deep tendon reflexes 2+ bilaterally Motor Exam: strength 5/5 throughout and muscle tone normal throughout Assessment & Plan Assessment/Plan (1) Lumbar spondylosis: PLAN: Okay to admit to floor See postop orders Discharge planning, likely home tomorrow
[2022-12-20] MEDS: Cefazolin 2 GM in 0.9% Normal Saline 100 ML IV (13:19)
--- NOTE | 2022-12-20 13:42 | RAD_ITS ---
INDICATION: HARDWARE REMOVAL SPINAL CORD STIMULATOR LEADS AND POSS GENERATOR, T9-T10 LAMINECTOMY EXAMINATION/TECHNIQUE: X-RAY - XR Spine Lumbar 1 View COMPARISON: None. TECHNIQUE: SECONDS 6.48 MGY 4 IMAGES FINDINGS: HARDWARE REMOVAL SPINAL CORD STIMULATOR LEADS AND POSS GENERATOR, T9-T10 LAMINECTOMY RAD/Spine 1 View Any Level IMPRESSION: 6.48 MGY 4 IMAGES Electronically Signed: Marlee Avalos MD at 5:49 EDT ,
[2022-12-20] MEDS: THROMBIN (RECOMBINANT) 20,000 UNIT VIAL 20000 UNIT TOPICAL (14:01)
[2022-12-20] MEDS: Bupivacaine 0.25% 30 ML Vial (14:01)
[2022-12-20] MEDS: Lactated Ringers 1,000 ML 100 ML IV (19:00)
[2022-12-20] MEDS: Atorvastatin Calcium 40 MG Tablet PO (21:09)
[2022-12-20] MEDS: Metoprolol(XL)Succ 25 MG Tablet PO (21:10)
[2022-12-20] MEDS: Pantoprazole Sodium 20 MG Tablet PO (21:10)
[2022-12-20] MEDS: Acetaminophen 500 MG Tablet 1000 MG PO (21:10)
[2022-12-20] MEDS: buPROPion (SR) 150 MG Tablet.SA PO (21:11)
[2022-12-20] MEDS: Morphine 4 MG/ML Syringe IV (21:11)
[2022-12-20] MEDS: Cefazolin 1 GM/50 ML BAG IV (21:18)
[2022-12-20] MEDS: busPIRone 15 MG TABLET PO (21:18)
--- NOTE | 2022-12-20 23:39 | PN.HOSP_ITS ---
Reason for Visit Reason for Visit: Diagnoses Pure hypercholesterolemia, unspecified (12/20/22) Essential (primary) hypertension (12/20/22) Spondylosis without myelopathy or radiculopathy, lumbar region (12/20/22) Encounter for other preprocedural examination (12/20/22) Subjective Subjective Patient is a 76 y/o female with a significant history of CAD, non-ST segment elevation PR, status post RCA and LAD PCI, tricuspid valve regurgitation, hyp ertension ; osteoporosis on Prolia; lumbar spondylosis and chronic back pain status post Explantation of spinal cord stimulator trial leads, ?T9-10 partial bilateral laminectomies, Dorsal column stimulator paddle lead placement and one hour of complex programming postoperatively postop day 0 that internal medicine service has been consulted for management of her chronic medical conditions that include history of CAD, hypertension and others as above. She complains of expected pain at her back. Objective Data Objective Data Vital Signs: Vital Signs Temp Pulse Resp BP Pulse Ox O2 Del Method O2 Flow Rate 97.7 F L 79 14 133/78 H 100 Nasal Cannula 2 12/20/22 22:37 12/20/22 22:37 12/20/22 22:37 12/20/22 22:37 12/20/22 22:37 12/20/22 22:37 12/20/22 22:37 Oxygen Flow Rate (L/min) 2 Oxygen Delivery Method Nasal Cannula Weight: 49.9 kg Body Mass Index (BMI) 23.0 Intake & Output: Intake and Output for Last 24 Hours 12/18/22 12/19/22 12/20/22 23:59 23:59 23:59 Intake Total 1160 / 1160 Output Total 1900 / 1900 Balance -740 / -740 Lab / Micro Data Attestation: I reviewed the patient's lab results. Micro: Microbiology 12/14/22 08:55 Swab (Method) Nasal Screen MRSA/MSSA - Final ABG Data Attestation: I personally reviewed and interpreted this ABG as follows: Physical Exam Narrative Physical exam: General: Well-nourished, well-developed. Head: Normocephalic, atraumatic, no tenderness Eyes: Vision is grossly intact. EOMI ENT, no trauma, moist mucous membranes, no rhinorrhea Neck: Nontender, No thyromegaly. CVS: Regular rate and rhythm. S1-S2 present. No murmur, gallop or rub. Respiratory : clear to auscultation bilaterally, chest wall nontender Abdomen: Soft, nontender, nondistended, normal bowel sounds, no masses : Deferred Back: Dry and intact dressing as patient's back Extremities: Nontender full range of motion, no trauma Skin: Normal color, no trauma, abrasions Neuro: Alert, oriented, cranial nerves II through XII grossly intact. Psychiatry: Normal mood. Normal affect. Not depressed. Not anxious. Assessment & Plan Assessment/Plan (1) Lumbar spondylosis: (2) Essential hypertension: (3) Presence of stent in coronary artery: (4) Hypothyroidism (acquired): PLAN: Plan Lumbar spondylosis and chronic back pain Status post 1.? Explantation of spinal cord stimulator trial leads 2.? T9-10 partial bilateral laminectomies 3.? Dorsal column stimulator paddle lead placement 4. 1 hour of complex programming postoperatively. CBC and BMP. Management by primary Urinary retention After straight cath x2 Vazquez catheter was placed. Flomax ordered. Hypothyroidism Stable Synthroid continued Hypertension Blood pressure is not within goal Home blood pressure medication continued. As needed hydralazine ordered. Trend blood pressure and adjust blood pressure medications. Presence of stent in coronary artery Patient denies being on aspirin or Plavix. On discharge recommend patient be started on at least aspirin whenever is okay for primary. DVT prophylaxis: Charges/Coding Visit Charges Office Visits / Consults: [id number] OV L3 Est
[2022-12-21] VITALS (11 sets, daily range): BP systolic 139–161; BP diastolic 78–95; PULSE 69–81; RESP 14–18; TEMP 36.4–37.5; O2SAT 95–100
[2022-12-21] MEDS: Morphine 2 MG/ML Syringe IV (01:40)
[2022-12-21] MEDS: oxyCODONE 5 MG Tablet PO ×4 (02:46→18:47)
[2022-12-21] MEDS: Lactated Ringers 1,000 ML 100 ML IV (02:47)
[2022-12-21] MEDS: Tamsulosin HCl 0.4 MG Capsule PO ×2 (03:02→20:39)
[2022-12-21] MEDS: Cefazolin 1 GM/50 ML BAG IV ×3 (05:49→20:40)
[2022-12-21] MEDS: Levothyroxine 50 MCG Tablet PO (05:50)
[2022-12-21] MEDS: Acetaminophen 500 MG Tablet 1000 MG PO ×3 (05:50→20:39)
[2022-12-21 06:16] LABS: Absolute Lymphocyte Count 0.61 X10^3/uL (0.83-4.51); Absolute Neutrophil Count 9.9 X10^3/uL (2.0-7.7); Basophil# 0.01 X10^3/uL; Basophil% 0.1 % (0-1); Hematocrit 40.2 % (37-47); Hemoglobin 13.8 g/dL (12.0-15.0); Lymphocyte # 0.61 X10^3/ul (0.83-4.51); Lymphocyte % 5.5 % (19-41); Mean Corp Hgb Conc 34.3 g/dL (32-36); Mean Corpuscular Hgb 33.7 pg (27.0-32.0); Mean Corpuscular Volume 98.3 fL (81-99); Mean Platelet Vol. 11.8 fl (6.2-12.0); Monocyte# 0.54 X10^3/uL; Monocyte% 4.8 % (0-10); NRBC Flagged by Analyzer 0 % (0-5); Neutrophil # 9.93 X10^3/uL (2.7-7.7); Platelet Count 167 K/mm3 (150-450); RBC Distribution Width CV 12.2 % (11.6-14.6); RBC Distribution Width SD 44.3 fl (35.1-43.9); Red Blood Count 4.09 M/mm3 (4.2-5.4); White Blood Count 11.2 K/mm3 (4.4-11.0)
[2022-12-21 06:52] LABS: Anion Gap 5 (5-15); BUN 16 mg/dL (7-18); BUN/Creat Ratio 23.1 RATIO (10-20); Calcium,Total 8.5 mg/dL (8.5-10.1); Chloride 99 mmol/L (98-107); Creatinine, Serum 0.69 mg/dL (0.55-1.02); EST Glomerular Filtration Rate 87 mL/min (>60); Est Glom Filt Rate - Afr Amer 105 mL/min (>60); Estimated Creatinine Clearance 35.93 ml/min; Glucose 152 mg/dL (74-106); Sodium Level 131 mmol/L (136-145)
[2022-12-21] MEDS: Budesonide Respules 0.5 MG/2 ML AMPUL.NEB. INHALATION ×2 (07:24→20:20)
--- NOTE | 2022-12-21 09:41 | CASEMGMT ---
DOYLE CM into pt room, pt sitting up in chair. Pt denies concerns regarding going home. She states she lives with her but he is a invalid. She denies using any AD to ambulate. Pt ready for dc today.
[2022-12-21] MEDS: Ensure Surgery 237 ML LIQUID PO (09:52)
[2022-12-21] MEDS: busPIRone 15 MG TABLET PO ×2 (09:52→20:39)
[2022-12-21] MEDS: buPROPion (SR) 150 MG Tablet.SA PO ×2 (09:53→20:40)
[2022-12-21] MEDS: Lisinopril 10 MG Tablet PO (09:53)
[2022-12-21] MEDS: Metoprolol(XL)Succ 25 MG Tablet PO ×2 (09:53→20:39)
[2022-12-21] MEDS: amLODIPine 2.5 MG Tablet PO (09:53)
[2022-12-21] MEDS: Furosemide 20 MG Tablet PO (09:53)
--- NOTE | 2022-12-21 11:18 | PHA.DC.MC ---
Pharmacy Service has performed discharge medication reconciliation and counseling for this patient. The patient was counseled on the following discharge medications and changes in medications for homegoing were reviewed. 1. STEVEN The Reason for Use, instructions for use, and potential side effects were reviewed for all new medications. The patient's questions regarding all of their medications were answered. The patient was able to verbally demonstrate an understanding of their discharge medications. Home Medications bupropion HCl 150 mg tablet,12 hr sustained-release 150 mg PO BID anxiety 12/28/13 omeprazole 20 mg capsule,delayed release 20 mg PO QHS acid reflux 12/28/13 atorvastatin 40 mg tablet 40 mg PO QHS #90 tabs 01/26/21 calcium carbonate 600 mg-vitamin D3 10 mcg (400 unit) tablet 1 tab PO DAILY 02/14/21 cyclobenzaprine 5 mg tablet 5 mg PO TID PRN Muscle Pain 02/14/21 denosumab 60 mg/mL subcutaneous syringe (Prolia) 60 mg subcut [id number] bone health #1 mL 04/19/22 levothyroxine 50 mcg tablet 50 mcg PO DAILY #90 tabs 05/23/22 buspirone 15 mg tablet 15 mg PO BID MENTAL HEALTH 05/24/22 fluticasone propionate 44 mcg/actuation HFA aerosol inhaler 2 puff inhalation BID PRN SOB 05/24/22 lisinopril 10 mg tablet 10 mg PO DAILY 05/24/22 amlodipine 2.5 mg tablet 2.5 mg PO DAILY #90 tabs 06/28/22 furosemide 20 mg tablet 20 mg PO DAILY #30 tabs 07/03/22 metoprolol succinate 25 mg tablet,extended release 24 hr 25 mg PO BID #180 tabs 08/08/22 hydrocodone-acetaminophen 5-325mg 5mg-325mg 1 tab PO Q8H PRN Pain 7 days #90 tabs 12/20/22 The patient's discharge medication list was reviewed for discrepancies and discrepancies were resolved.
--- NOTE | 2022-12-21 11:46 | CASEMGMT ---
RN CM into pt room, pt in bed with nurse at bedside and is very painful. RN CM to check back with pt to complete assessment.
--- NOTE | 2022-12-21 15:10 | CASEMGMT ---
RN?CM?FIELD REPRESENTATIVES DIRECTOR?CM?to room to meet with patient for initial transition planning/care coordination?assessment.?RN?CM?introduced self and role at [facility].? Pt voices understanding and consents to?assessment?at this time.? Pt resting in bed in no distress at this time.? Pt is A/O at this time and answers all questions appropriately.?? Care providers, pharmacy, and demographics verified/updated at this time. PCP: Dr Goldberg Specialists: Dr Mendenhall-sidra, NGOC/cardiology [facility]erred [facility]acy:[facility] Insurance: [employer] Prescription Benefit:?Yes Living Will/HPOA:?Has LW and HCPOA, who is her . 1st alternative is her dtrSylvia. LNOK: . Dtr-Sylvia. Son-Macario Living Arrangements: Lives w/her in one-story home w/basement. 3 steps to enter. States does okay w/stairs. Indep w/ADL's. Son in town from [place] to assist as needed. Transportation:?Pt states drives self and states no transportation concerns at this time.? also drives. DME: States has the following DME:?shower chair, RTS, cane, walker ?Pt states no need for further DME at this time.? HHC/SNF: No hx of either. Denies needs. States plans to go to OP therapy after f/u appt w/Dr Mendenhall in 2-3 weeks. Pt wishes to return home and states has no concerns with going home at time of discharge.? CM?to follow for any discharge planning/needs.? Pt voices no concerns/needs at this time.? Advised pt to ask for?CM?if any questions/concerns/needs arise.? Voices understanding. PLAN:??Home John BSN?RN?CM
[2022-12-21] MEDS: 0.9% Saline Lock 10 ML Syringe IV ×3 (18:47→21:56)
--- NOTE | 2022-12-21 19:52 | PCM.PN.HOSP ---
Reason for Visit Reason for Visit: Diagnoses Hypothyroidism, unspecified (12/20/22) Pure hypercholesterolemia, unspecified (12/20/22) Essential (primary) hypertension (12/20/22) Spondylosis without myelopathy or radiculopathy, lumbar region (12/20/22) Encounter for other preprocedural examination (12/20/22) Presence of coronary angioplasty implant and graft (12/20/22) Subjective Subjective Patient was seen and examined tonight, she does not complain of any severe surgical pain, she does not complain of any shortness of breath or chest discomfort. Patient states she believes she will be discharged tomorrow. Patient underwent dorsal column stimulator paddle lead placement and T9-T10 partial bilateral laminectomies due to lumbar spondylosis. Patient's medical problems include essential hypertension, chronic anxiety, hyperlipidemia, hypothyroidism, coronary artery disease, and GERD. Objective Data Objective Data Vital Signs: Vital Signs Temp Pulse Resp BP Pulse Ox O2 Del Method O2 Flow Rate 99.5 F H 75 18 146/78 H 97 Room Air 2 12/21/22 16:36 12/21/22 16:36 12/21/22 16:36 12/21/22 16:36 12/21/22 16:36 12/21/22 16:36 12/21/22 02:37 Oxygen Flow Rate (L/min) 2 Oxygen Delivery Method Room Air Weight: 49.9 kg Body Mass Index (BMI) 23.0 Intake & Output: Intake and Output for Last 24 Hours 12/19/22 12/20/22 12/21/22 23:59 23:59 23:59 Intake Total 1178.75 / 1178.75 1581.66 / 1581.66 Output Total 2700 / 2700 1675 / 1675 Balance -1521.25 / -1521.25 -93.34 / -93.34 Lab / Micro Data Result Diagrams: 12/21/22 05:45 12/21/22 05:45 Labs: Laboratory Results - last 24 hr 12/21/22 05:45: WBC 11.2 H, RBC 4.09 L, Hgb 13.8, Hct 40.2, MCV 98.3, MCH 33.7 H, MCHC 34.3, RDW Std Deviation 44.3 H, RDW Coeff of Yasmany 12.2, Plt Count 167, MPV 11.8, Immature Gran % (Auto) 0.600, Neut % (Auto) 89.0 H, Lymph % (Auto) 5.5 L, Haywood % (Auto) 4.8, Eos % (Auto) 0.0, Baso % (Auto) 0.1, Absolute Neuts (auto) 9.9 H, Absolute Lymphs (auto) 0.61 L, Nucleated RBC % 0 12/21/22 05:45: Sodium 131 L, Potassium 4.0, Chloride 99, Carbon Dioxide 27.0, Anion Gap 5, BUN 16, Creatinine 0.69, Estim Creat Clear Calc 35.93, Est GFR (MDRD) Af Amer 105, Est GFR (MDRD) Non-Af 87, BUN/Creatinine Ratio 23.1 H, Glucose 152 H, Calcium 8.5 Micro: Microbiology 12/14/22 08:55 Swab (Method) Nasal Screen MRSA/MSSA - Final Radiography Diagnostic Testing: Radiology Impression Spine X-Ray 12/20/22 13:42 IMPRESSION: 6.48 MGY 4 IMAGES Electronically Signed: Marlee Avalos MD at 5:49 EDT , Physical Exam Const alert, oriented x3, no apparent distress and healthy appearing General Appearance: cooperative, well kempt and well developed Orientation / Consciousness: awake, oriented to person, oriented to place and oriented to time HEENT normocephalic and moist oral mucous membranes Eyes PERRL, EOMs intact bilaterally and conjunctivae normal Neck supple, no JVD, thyroid normal and no carotid bruits General: trachea midline Resp normal respiratory effort, no retractions, no use of accessory muscles and clear to auscultation bilaterally Auscultation: Negative for rales, rhonchi or wheezes Cardio regular rate, regular rhythm, S1 normal heart sound, S2 normal heart sound, no murmurs, no rub and no gallops GI normal to inspection, nondistended, normoactive bowel sounds, soft to palpation, non-tender and non-distended Extremity no clubbing, cyanosis or edema Skin no rashes or lesions noted Neuro oriented x3, CN's II-XII intact bilaterally, moves all extremities, no focal motor deficits and no sensory deficits noted Sensorium / Orientation: awake, alert, oriented to person, oriented to place and oriented to time Speech: speech normal Psych affect normal Assessment & Plan Assessment/Plan (1) Lumbar spondylosis: PLAN: Plan 1. Coronary artery disease-stable at this time, continue present medications #2 hypothyroidism-patient is on Synthroid, this will be continued #3 essential hypertension-patient will remain on her present medications #4 GERD-patient is on a PPI #5 lumbar spondylosis-status post spinal cord stimulator lead placement, T9-T10 partial bilateral laminectomies-spinal surgery is participating in her care Total clinical time spent by myself addressing the patient's medical issues, reviewing all of her data, and collaborating with patient's care team: 25 minutes Charges/Coding Visit Charges Inpatient E&M: 54279 Subs Hosp L1
[2022-12-21] MEDS: Atorvastatin Calcium 40 MG Tablet PO (20:39)
[2022-12-21] MEDS: Pantoprazole Sodium 20 MG Tablet PO (20:39)
[2022-12-21] MEDS: hydrALAZINE 20 MG/ML Vial 5 MG IV (20:46)
[2022-12-21] MEDS: cycloBENZAPRine HCl 5 MG TABLET PO (21:56)
[2022-12-22 04:00] VITALS: BP 112/60; PULSE 70; RESP 15; TEMP 36.9; O2SAT 94
[2022-12-22] MEDS: cycloBENZAPRine HCl 5 MG TABLET PO (04:19)
[2022-12-22] MEDS: 0.9% Saline Lock 10 ML Syringe IV (04:25)
[2022-12-22] MEDS: Cefazolin 1 GM/50 ML BAG IV (04:25)
--- NOTE | 2022-12-22 04:43 | NURSING ---
pt has been able to reposition self in bed throughout night
[2022-12-22] MEDS: Acetaminophen 500 MG Tablet 1000 MG PO ×2 (06:08→14:30)
[2022-12-22] MEDS: Levothyroxine 50 MCG Tablet PO (06:08)
[2022-12-22 07:00] VITALS: O2SAT 95
[2022-12-22] MEDS: oxyCODONE 5 MG Tablet PO ×2 (07:51→13:00)
[2022-12-22 08:00] VITALS: BP 129/64; PULSE 67; RESP 18; TEMP 36.7; O2SAT 98
[2022-12-22 09:45] VITALS: PULSE 67
[2022-12-22] MEDS: amLODIPine 2.5 MG Tablet PO (09:45)
[2022-12-22] MEDS: Furosemide 20 MG Tablet PO (09:45)
[2022-12-22] MEDS: buPROPion (SR) 150 MG Tablet.SA PO (09:45)
[2022-12-22] MEDS: Lisinopril 10 MG Tablet PO (09:45)
[2022-12-22] MEDS: busPIRone 15 MG TABLET PO (09:45)
[2022-12-22] MEDS: Metoprolol(XL)Succ 25 MG Tablet PO (09:45)
--- NOTE | 2022-12-22 11:33 | CASEMGMT ---
DOYLE CM in to complete STINSON form with patient. RN RADHA explained STINSON form to patient, patient voiced understanding. Patient signed STINSON form and filed in chart. Patient provided copy of signed STINSON form. Patient states that is using her old walker and would like new one. Patient agreeable to [employer]. Script received and placed on chart with [employer]. Patient had no further questions or concerns at this time.
[2022-12-22] MEDS: Bisacodyl 5 MG Tablet 10 MG PO (13:10)
[2022-12-22 14:33] VITALS: BP 122/63; PULSE 70; RESP 18; TEMP 37.1; O2SAT 98
[2022-12-22 16:50] VITALS: BP 147/76; PULSE 74; RESP 18; TEMP 36.3; O2SAT 99
== END 2022-12-22 17:01 | disposition home or self-care (01) ==
LOC: SDC 16:50 → MS3 16:50
PROVIDERS: Anesthesiology; Hospitalist; Internal Medicine Cardiovascular Disease; Admitting Provider Orthopaedic Surgery; PCP Family Medicine; Referring Provider Orthopaedic Surgery; Visit Provider Orthopaedic Surgery
PROC: (CPT 63655; principal; 2022-12-20 12:20)
DX: Z45.42 Encounter for adjustment and management of neurostimulator (principal); M47.816 Spondylosis without myelopathy or radiculopathy, lumbar region; F41.9 Anxiety disorder, unspecified; E78.00 Pure hypercholesterolemia, unspecified; Z95.5 Presence of coronary angioplasty implant and graft; E03.9 Hypothyroidism, unspecified; G89.29 Other chronic pain; M81.0 Age-related osteoporosis without current pathological fracture; I10 Essential (primary) hypertension; I25.10 Atherosclerotic heart disease of native coronary artery without angina pectoris; K21.9 Gastro-esophageal reflux disease without esophagitis; Z79.899 Other long term (current) drug therapy; R94.31 Abnormal electrocardiogram [ECG] [EKG]; R06.09 Other forms of dyspnea; R05.3 Chronic cough; R06.02 Shortness of breath; R53.83 Other fatigue
CPT/HCPCS: 63655; 00630; 36415; 51702; 71046; 72020; 76000; 80048; 80061; 80076; 84443; 85025; 85610; 85730; 87081; 93005; 94640; 94668; 94762; 96361; 96365; 96366; 96375; 96376; 97116; 97162; 99221; C1713; C1778; J7120; A4216; G0378; J2405

== ENCOUNTER → 2023-02-20 | Outpatient (CLI) | payer MEDICARE, SELFPAY ==
--- NOTE | 2023-02-20 10:33 | BI_ITS ---
MAMMOGRAPHY - BILATERAL SCREENING REASON FOR EXAM: Female, 77 years old. Routine annual screening examination. PERTINENT HISTORY: Non-contributory. History of remote left stereotactic breast biopsy. TECHNIQUE: Digital bilateral breast yeny (3D mammographic acquisition) in the CC and MLO projections. 2-D mediolateral oblique (MLO) and craniocaudad (CC) views of both breasts were obtained. CAD: Full Field Digital Mammography with Computer Added Detection was performed. COMPARISON: Comparison is made with prior study dated April 04, 2022 and September 22, 2020. FINDINGS: Breast Composition: The breasts are almost entirely fatty. There are no dominant masses or suspicious calcifications. Stable appearance of the bilateral secretory calcifications. A tissue clip marker is once again seen in the upper outer quadrant of the left breast. No other significant abnormalities are identified. There has been no significant change since the prior study. BI/SCRN MAMM (CAD)W/YENY BILAT IMPRESSION: Stable bilateral screening mammogram. Yearly follow-up mammogram recommended. (A) ASSESSMENT CATEGORY: BIRADS Category 2: Benign. A letter regarding these results will be sent to the patient by the facility within 30 days. Approximately 10% of breast cancers are not detected by mammography. A normal mammogram should not delay biopsy of a clinically suspicious abnormality. [id number] Electronically Signed: Michael Santiago MD at 12:58 EDT ,
== END | disposition home or self-care (01) ==
LOC: OPBI 10:32
PROVIDERS: PCP Family Medicine; Referring Provider Family Medicine; Visit Provider Family Medicine
DX: Z12.31 Encounter for screening mammogram for malignant neoplasm of breast (principal)
CPT/HCPCS: 77063; 77067

== ENCOUNTER → 2023-03-16 | Outpatient (CLI) | payer MEDICARE, SELFPAY ==
--- NOTE | 2023-03-16 10:31 | US_ITS ---
STUDY: ULTRASOUND OF THE FEMALE PELVIS - COMPLETE REASON FOR EXAM: Female, 77 years old. LLQ PAIN LMP: Menopause TECHNIQUE: Transabdominal TECHNICAL QUALITY: Adequate. COMPARISON: None. FINDINGS: The uterus is anteverted and is in a midline position. The uterus measures 4.1 x 2.8 x 2.0 cm. Normal uterine cervix. The endometrium measures 3 mm in thickness, and is hyperechoic. There is no demonstrated endometrial mass. There is no demonstrated myometrial mass. I.U.D. - The patient does not have an I.U.D. The right ovary is non-visualized.. The left ovary is non-visualized.. There is no fluid in the cul-de-sac. The pre void volume of the bladder was ml. The post void volume of the bladder was ml. Polycystic ovary disease: No. US/Pelvic (Non ) IMPRESSION: Normal female pelvis. Electronically Signed: Harvey Penaloza MD at 22:29 EDT ,
== END | disposition home or self-care (01) ==
PROVIDERS: PCP Family Medicine; Referring Provider Family Medicine; Visit Provider Family Medicine
DX: R10.32 Left lower quadrant pain (principal); Z78.0 Asymptomatic menopausal state
CPT/HCPCS: 76856

== ENCOUNTER → 2023-04-05 | Outpatient (CLI) | payer MEDICARE, SELFPAY ==
[2023-04-05 17:36] LABS: Absolute Lymphocyte Count 0.81 X10^3/uL (0.83-4.51); Basophil# 0.03 X10^3/uL; Basophil% 0.3 % (0-1); Eosinophil# 0.01 X10^3/uL; Eosinophils% 0.1 % (0-5); Hematocrit 44.6 % (37-47); Hemoglobin 14.7 g/dL (12.0-15.0); Lymphocyte # 0.81 X10^3/ul (0.83-4.51); Lymphocyte % 9.4 % (19-41); Mean Corpuscular Hgb 32.6 pg (27.0-32.0); Mean Corpuscular Volume 98.9 fL (81-99); Monocyte# 0.74 X10^3/uL; Monocyte% 8.6 % (0-10); NRBC Flagged by Analyzer 0 % (0-5); Neutrophil # 6.96 X10^3/uL (2.7-7.7); Neutrophil % 81.3 % (47-70); Platelet Count 243 K/mm3 (150-450); RBC Distribution Width CV 13.2 % (11.6-14.6); RBC Distribution Width SD 47.9 fl (35.1-43.9); Red Blood Count 4.51 M/mm3 (4.2-5.4); White Blood Count 8.6 K/mm3 (4.4-11.0)
[2023-04-05 17:52] LABS: BNP,B-Type NATRIURETIC PEPTIDE 139.5 pg/mL (0-100)
[2023-04-05 17:55] LABS: Vitamin D,25 Hydroxy 58.4 ng/mL
[2023-04-05 18:07] LABS: Anion Gap 5 (5-15); BUN 19 mg/dL (7-18); BUN/Creat Ratio 18.8 RATIO (10-20); Calcium,Total 9.2 mg/dL (8.5-10.1); Chloride 106 mmol/L (98-107); Creatinine, Serum 1.01 mg/dL (0.55-1.02); EST Glomerular Filtration Rate 56 mL/min (>60); Est Glom Filt Rate - Afr Amer 68 mL/min (>60); Free T3 < 0.5 pg/mL (2.18-3.98); Glucose 86 mg/dL (74-106); Potassium 4.2 mmol/L (3.5-5.1); Sodium Level 140 mmol/L (136-145); T4 Free Direct 1.22 ng/dL (0.76-1.46); Thyroid Stim Hormone (TSH) 0.93 uIU/mL (0.358-3.74)
== END | disposition home or self-care (01) ==
LOC: LAB 16:10
PROVIDERS: PCP Family Medicine; Referring Provider Nurse Practitioner Gerontology; Visit Provider Nurse Practitioner Gerontology
DX: R06.09 Other forms of dyspnea (principal); R53.83 Other fatigue; M81.0 Age-related osteoporosis without current pathological fracture
CPT/HCPCS: 36415; 80048; 82306; 83880; 84439; 84443; 84481; 85025

== ENCOUNTER 2023-04-19 11:36 | Outpatient (CLI) | payer MEDICARE, SELFPAY ==
[2023-04-19 11:49] VITALS: BMI 22.1
[2023-04-19] MEDS: DENOSUMAB 60 MG/ML SC (11:52)
[2023-04-19 12:06] VITALS: BP 134/83; PULSE 61; RESP 16; O2SAT 96
== END 2023-04-19 11:37 | disposition home or self-care (01) ==
LOC: MEDOUTP 11:38
PROVIDERS: PCP Family Medicine; Referring Provider Internal Medicine Endocrinology, Diabetes & Metabolism; Visit Provider Internal Medicine Endocrinology, Diabetes & Metabolism
DX: M81.0 Age-related osteoporosis without current pathological fracture (principal)
CPT/HCPCS: 96372; J0897

== ENCOUNTER → 2023-04-22 | Outpatient (CLI) | payer MEDICARE, SELFPAY ==
[2023-04-22 12:53] LABS: Anion Gap 4 (5-15); BUN 21 mg/dL (7-18); BUN/Creat Ratio 18.9 RATIO (10-20); Calcium,Total 9.7 mg/dL (8.5-10.1); Chloride 101 mmol/L (98-107); Creatinine, Serum 1.11 mg/dL (0.55-1.02); EST Glomerular Filtration Rate 50 mL/min (>60); Est Glom Filt Rate - Afr Amer 61 mL/min (>60); Glucose 109 mg/dL (74-106); Sodium Level 138 mmol/L (136-145)
[2023-04-22 12:54] LABS: BNP,B-Type NATRIURETIC PEPTIDE 105.5 pg/mL (0-100)
== END | disposition home or self-care (01) ==
PROVIDERS: PCP Family Medicine; Referring Provider Nurse Practitioner Gerontology; Visit Provider Nurse Practitioner Gerontology
DX: R06.09 Other forms of dyspnea (principal)
CPT/HCPCS: 36415; 80048; 83880

== ENCOUNTER → 2023-07-08 | Outpatient (CLI) | payer MEDICARE, SELFPAY ==
--- NOTE | 2023-07-08 06:33 | ECHOD_ITS ---
Reason For Study: ASHD/CAD Procedure This was a 2D Doppler, Color Flow transthoracic echocardiogram. Exam performed in department. Left Ventricle Normal size and thickness. The left ventricular ejection fraction is 65 %. Stage 2 diastolic dysfunction. Right Ventricle Normal right ventricle. Atria There is mild biatrial dilatation. Mitral Valve Trivial mitral valve insufficiency. Tricuspid Valve Moderate (2+) tricuspid valve insufficiency. Right ventricular systolic pressure estimated to be 39 mmHg. Aortic Valve Trisinus/trileaflet aortic valve. Mild (1+) aortic valve insufficiency. Pulmonic Valve The pulmonic valve is not well visualized. Great Vessels Normal sized aortic root. Pericardium/Pleural No pericardial effusion. MMode/2D Measurements & Calculations LVIDd: 4.0 cm IVSd: 0.93 cm Ao root diam: 3.5 cm LVIDs: 2.5 cm LVPWd: 0.83 cm RVDd: 3.0 cm FS: 37.5 % LAV(MOD-bp): 55.0 ml EDV(MOD-sp4): 50.2 ml EDV(MOD-sp2): 35.0 ml LAV(MOD-bp) Indexed: 39.1 ml/m2 ESV(MOD-sp4): 15.3 ml ESV(MOD-sp2): 10.0 ml LAV(MOD-sp2): 56.2 ml EF(MOD-sp4): 69.5 % EF(MOD-sp2): 71.5 % LAV(MOD-sp4): 53.1 ml SV(MOD-sp4): 34.9 ml SV(MOD-sp2): 25.0 ml LA dimension(2D): 4.1 cm RA A4 area: 17.2 cm2 TAPSE: 2.2 cm Time Measurements MV dec time: 0.21 sec Doppler Measurements & Calculations MV E max earnest: 76.2 cm/sec Lat Peak E' Earnest: 8.3 cm/sec Med Peak E' Earnest: 6.4 cm/sec MV A max earnest: 84.6 cm/sec E/E' lat: 9.2 E/E' med: 11.9 MV E/A: 0.90 MV V2 max: 101.8 cm/sec MV P1/2t max earnest: 94.6 cm/sec Ao V2 max: 122.4 cm/sec MV max P.1 mmHg MV P1/2t: 63.9 msec Ao max P.0 mmHg MV V2 mean: 56.9 cm/sec MV dec slope: 433.5 cm/sec2 Ao V2 mean: 83.2 cm/sec MV mean P.5 mmHg MVA(P1/2t): 3.4 cm2 Ao mean P.2 mmHg MV V2 VTI: 19.8 cm Ao V2 VTI: 29.7 cm AV (velocity ratio): 0.86 AI max earnest: 418.0 cm/sec LV V1 max: 109.6 cm/sec PA V2 max: 80.4 cm/sec AI max P.5 mmHg LV V1 max P.8 mmHg PA V2 mean: 54.0 cm/sec AI dec slope: 251.6 cm/sec2 LV V1 mean P.6 mmHg AI P1/2t: 486.6 msec LV V1 mean: 75.7 cm/sec LV V1 VTI: 25.6 cm TR max earnest: 290.7 cm/sec TR max P.8 mmHg ECHO/Echo Complete Interpretation Summary The left ventricular ejection fraction is 65 %. Stage 2 diastolic dysfunction. Moderate (2+) tricuspid valve insufficiency. Right ventricular systolic pressure estimated to be 39 mmHg. Mild (1+) aortic valve insufficiency. Ordering Physician: Yakov Rodriguez Referring Physician: Peyton Goldberg Performed By: Sonia Malone, GIOVANI, RVT
== END | disposition home or self-care (01) ==
LOC: CVS 06:33
PROVIDERS: PCP Family Medicine; Referring Provider Internal Medicine Cardiovascular Disease; Visit Provider Internal Medicine Cardiovascular Disease
DX: I25.10 Atherosclerotic heart disease of native coronary artery without angina pectoris (principal); E78.5 Hyperlipidemia, unspecified; R53.83 Other fatigue; R06.09 Other forms of dyspnea
CPT/HCPCS: 78452; 93017; 93306; A9500; A4216; J2785

== ENCOUNTER 2023-08-14 08:27 | Day surgery (SDC) | payer MEDICARE, SELFPAY ==
--- NOTE | 2023-07-26 12:30 | HP.PCM_ITS ---
History and Physical Date of Admission: 08/14/23 The patient has history of coronary artery disease status post drug-eluting stent to the distal RCA and mid LAD. That was in 2020. For the past 6 months or so, patient has been feeling of increased generalized fatigue and tiredness. According to her, her is invalid and she has to take care of all his needs. She underwent a stress test which demonstrated small area of anterior reversible defect of mild intensity suggestive of mild ischemia. The gated Cardiolite study reports an LVEF of 31% however this is likely inaccurate processing. Echocardiogram demonstrated an EF of 65%, stage 2 diastolic dysfunction, moderate tricuspid insuff. Denies any chest pains. Shortness of breath with strenuous exertion only. [facility] Medical History (Updated 05/09/23 @ 14:[address] Yakov Rodriguez MD) Anxiety Arthritis Atherosclerotic heart disease of [place] coronary artery without angina pectoris Back pain Bruised rib CAD (coronary artery disease) Cardiology follow-up encounter Chronic cough Closed odontoid fracture Depression Depression TRINIDAD (dyspnea on exertion) Dyspnea Essential hypertension Fatigue GERD (gastroesophageal reflux disease) GERD (gastroesophageal reflux disease) High cholesterol History of echocardiogram History of stress test HTN (hypertension) Hypothyroidism Hypothyroidism (acquired) Injury of head and neck Irritant contact dermatitis due to plants, except food Left shoulder strain Lumbar spondylosis Non-rheumatic tricuspid valve insufficiency Non-smoker Non-ST elevation (NSTEMI) myocardial infarction Osteoarthritis Osteoporosis Osteoporosis Post-menopausal Presence of stent in coronary artery (~02/23/21) Rib pain on left side Shortness of breath on exertion Spinal cord stimulator status Sternum fx Thyroid disease Vertebral fracture, osteoporotic Vitamin D deficiency Wears glasses Surgical History H/O carpal tunnel repair History of back surgery History of bunionectomy of left great toe History of cardiac catheterization History of lumbar spinal fusion History of right shoulder replacement Hx of arthroscopic knee surgery Hx of colonoscopy Hx of spinal surgery Presence of coronary angioplasty implant and graft (~01/25/21) Status post bilateral knee replacements Family History Father Myocardial infarction, Onset Age: 64 Social History household members: spouse housing: house Smoking Status: Never smoker alcohol intake: never substance use type: does not use caffeine: Yes Type: coffee Number of servings: 1 what type of physical activity do you participate in: none do you feel safe at home: Yes ROS Const Const: Positive for fatigue and daytime sleepiness; Negative for weakness, headache(s), frequent falls, difficulty sleeping or excessive sweating Eyes Eyes: Negative for loss of peripheral vision, transient loss of vision, blurry vision, double vision or tunnel vision ENT ENT: Positive for balance problems; Negative for headache(s), dizziness or Nosebleed/epistaxis Cardio Chest Pain: No Palpitations: No Edema: None Muscle aches with walking: None Resp Respiratory: Positive for SOB with activity; Negative for SOB at rest, SOB orthopnea\SOB lying down, Cough or paroxysmal noc turnal dyspnea GI GI: Negative nausea, vomiting, heartburn or black,tarry stools : Negative for hematuria Musc Musc: Positive for muscle weakness, joint pain and balance problems; Negative for muscle aches/ myalgia Skin Skin: Negative non-healing lesions, rash or unusual bruising Neuro Neuro: Positive for lightheadedness; Negative for dizziness, near syncope, syncope, frequent falls, headache(s), weakness, blurry vision, double vision or lack of coordination Samy Hematologic/Lymphatic: Positive for easy bruising; Negative for easy bleeding Endo Endo: Positive for fatigue; Negative for excessive sweating or increased thirst/drinking Psych Psych: Negative for anxiety or depression Allergy Allergy/Immunology: Negative for hives and Negative for rash Cardiology Exam Const Appearance: comfortable and no acute distress Nutritional Appearance: well nourished Neck Neck: no JVD Carotids: Negative bruit Chest Auscultation: Bilateral: Clear to Auscultation Cardio Rate: regular rate Rhythm: regular rhythm Heart sounds: S1 normal and S2 normal Neuro General: patient alert, patient awake and patient oriented x3 Extremities Lower Extremity Edema: None: Bilateral Assessment & Plan Assessment/Plan (1) Abnormal stress test: (2) TRINIDAD (dyspnea on exertion): (3) Presence of stent in coronary artery: PLAN: Plan * Will proceed with diagnostic heart cath. Follow up will be based on findings.
[2023-08-03 09:55] LABS: Absolute Lymphocyte Count 1.83 X10^3/uL (0.83-4.51); Absolute Neutrophil Count 4.3 X10^3/uL (2.0-7.7); Basophil# 0.08 X10^3/uL; Basophil% 1.1 % (0-1); Eosinophils% 2.8 % (0-5); Hematocrit 44.4 % (37-47); Hemoglobin 14.5 g/dL (12.0-15.0); Lymphocyte # 1.83 X10^3/ul (0.83-4.51); Lymphocyte % 25.6 % (19-41); Mean Corp Hgb Conc 32.7 g/dL (32-36); Mean Corpuscular Hgb 33.1 pg (27.0-32.0); Mean Corpuscular Volume 101.4 fL (81-99); Mean Platelet Vol. 11.2 fl (6.2-12.0); Monocyte% 9.8 % (0-10); NRBC Flagged by Analyzer 0 % (0-5); Neutrophil # 4.31 X10^3/uL (2.7-7.7); Neutrophil % 60.4 % (47-70); Platelet Count 221 K/mm3 (150-450); RBC Distribution Width CV 13.7 % (11.6-14.6); RBC Distribution Width SD 51.3 fl (35.1-43.9); Red Blood Count 4.38 M/mm3 (4.2-5.4); White Blood Count 7.1 K/mm3 (4.4-11.0)
--- NOTE | 2023-08-03 09:55 | RAD_ITS ---
STUDY: X-RAY CHEST REASON FOR EXAM: Female, 77 years old. Preop for heart catheter TECHNIQUE: PA and lateral views of the chest. COMPARISON: 12/14/2022 FINDINGS: Stable appearance of a neurostimulator catheter over the mid thoracic spine. The lungs are clear and expanded. There is no demonstrated pleural abnormality. Normal size heart. Normal mediastinum and constantine. Normal visualized pulmonary arteries. Normal visualized aortic arch and descending thoracic aorta. Degenerative changes in the lumbar spine and pelvis. Surgical hardware in the lumbar spine free of complication. Replaced right glenohumeral joint free of complication. There is no demonstrated abnormality of the visualized soft tissue structures of the upper abdomen. RAD/Chest PA and Lateral IMPRESSION: No acute pulmonary process Electronically Signed: Kit Silver MD at 15:22 EST ,
[2023-08-03 10:20] LABS: Anion Gap 5 (5-15); BUN 22 mg/dL (7-18); BUN/Creat Ratio 21.4 RATIO (10-20); Calcium,Total 8.9 mg/dL (8.5-10.1); Chloride 108 mmol/L (98-107); Creatinine, Serum 1.03 mg/dL (0.55-1.02); EST Glomerular Filtration Rate 55 mL/min (>60); Est Glom Filt Rate - Afr Amer 66 mL/min (>60); Glucose 102 mg/dL (74-106); Potassium 3.9 mmol/L (3.5-5.1); Sodium Level 141 mmol/L (136-145)
--- NOTE | 2023-08-14 10:04 | CL.D_ITS ---
Patient Name: ELIAN ALVARADO Study Date: 08/14/2023 Performing: Yakov Rodriguez MD Ht: 58 inches 147.32 cm : 1945 Wt: 109 lbs 49.44 kg Age: 77 Gender: female BSA: 1.41 PROCEDURE(S) PERFORMED [id number])LHC/COR/LV CLINICAL PROFILE AND INDICATIONS Indications: Stable Known CAD Heart Failure: None Stress/Imaging Stress Test w/SPECT MPI: Yes Result: Positive Intermediate RiskStress Test with SPECT MPI: Positive Intermediate Risk CONCLUSIONS Stents to Prox LAD and diatl RCA patent 50% Prox, 50% Mid LCX LVEF 70% RECOMMENDATIONS Medical therapy DESCRIPTION OF PROCEDURE The patient arrived to the procedure lab. The risks and benefits of the procedure as well as a full description of our services here and current unavailability of surgical backup were fully explained to the patient and/or their significant other prior to the catheterization. The Timeout was completed, verifying the correct patient and procedure. The patient's procedural site was prepped and draped in the usual fashion. Local anesthetic was given subcutaneously to right radial region with Lidocaine 2%. Using a modified Seldinger technique, arterial access was obtained via the right radial artery, a 6Fr sheath was inserted. Left Coronary Artery selective angiography was performed in multiple views using a 5 Fr. JL3.5 catheter. Right Coronary Artery selective angiography was then performed in multiple views using a 5 Fr. 3DRC (Marco) catheter. Left Ventriculography was performed in GARNER projection using a 5 Fr. Pigtail catheter. LV to AO pullback pressures were then recorded.The arterial sheath was pulled and a TR Band was applied for hemostasis with 10cc of air placed in the band. CORONARY ANGIOGRAPHY DOMINANCE: Right Dominant LEFT HEART ASSESSMENT Left Ventricular Ejection Fraction: by LV Gram 70 % LVEDP: 11 mmHg LEFT MAIN: Angiographically normal LEFT ANTERIOR DESCENDING ARTERY: Stent to Prox LAD patent RIGHT CORONARY ARTERY: Stent to distal RCA patent RCA: Calcified 30% Proximal lesion in RCA COMPLICATIONS No Complications PROCEDURE MEDICATIONS Versed 1 mg IV Fentanyl 50 mcg IV Versed 1 mg IV Fentanyl 50 mcg IV Oxygen: 2 L/min via nasal cannula Heparin given IA 08/14/2023 09:39:18 Verapamil 2.5mg, Ntg 200mcgs, 2000 units of Heparin given IA 08/14/2023 09:39:18 SUMMARY OF HEMODYNAMIC DATA Time AIR REST ECG 08:51:59 AO 139/77 (103) SA 09:41:17 LV 126/11, 21 09:48:56 LV 126/9, 23 09:49:04 AO 122/67 (91) 09:50:08 AIR REST 10:01:04 Signed By Yakov Rodriguez MD On 08/14/2023 10:03:31 Yakov Rodriguez MD
== END 2023-08-14 12:20 | disposition home or self-care (01) ==
PROVIDERS: PCP Family Medicine; Referring Provider Internal Medicine Cardiovascular Disease; Visit Provider Internal Medicine Cardiovascular Disease
DX: I25.10 Atherosclerotic heart disease of native coronary artery without angina pectoris (principal); I10 Essential (primary) hypertension; Z95.5 Presence of coronary angioplasty implant and graft; E78.00 Pure hypercholesterolemia, unspecified
CPT/HCPCS: 36415; 71046; 80048; 85025; 93458; 99152; 99153; J7040; Q9967; C1769; C1894

== ENCOUNTER → 2024-04-28 | Outpatient (CLI) | payer MEDICARE, SELFPAY ==
--- NOTE | 2024-04-28 10:45 | MRI_ITS ---
STUDY: MRI LEFT SHOULDER REASON FOR EXAM: Female, 78 years old. PAIN, IMPINGEMENT TECHNIQUE: Standardized fat and water weighted pulse sequences were obtained in all 3 orthogonal planes. COMPARISON: Left shoulder radiographs dated 06/28/2020. FINDINGS: There is supraspinatus, infraspinatus, and subscapularis tendinosis without a full-thickness tear. Normal teres minor tendon. Normal supraspinatus muscle. Normal infraspinatus muscle. Normal subscapularis muscle. Normal teres minor muscle. There is severe glenohumeral arthrosis with joint space narrowing, marginal osteophyte formation, high-grade chondromalacia, and subchondral edema/cyst formation on both sides of the joint. There is overall degeneration of the glenoid labrum. There is a small glenohumeral joint effusion. Normal humeral head and visualized proximal humerus. Normal biceps labral complex. Normal intracapsular long biceps tendon. Normal rotator interval. There is hypertrophic acromioclavicular arthrosis, with inferior osteophyte formation, with mild effacement of the supraspinatus myotendinous junction. There is a Type I morphology (flat undersurface), with a neutral orientation. There is a small amount of subacromial-subdeltoid bursal fluid. Normal visualized coracohumeral and coracoacromial ligaments. Normal quadrilateral space. Normal axillary space. There is mild anterior deltoid muscle edema. Normal trapezius muscle. MRI/Upper Ext Joint Only(Routine) IMPRESSION: Supraspinatus, infraspinatus, and subscapularis tendinosis without a full-thickness rotator cuff tear. Hypertrophic acromioclavicular arthrosis, with inferior osteophyte formation, with mild effacement of the supraspinatus myotendinous junction. Mild subacromial-subdeltoid bursitis. Severe glenohumeral arthrosis with a small glenohumeral joint effusion. Mild anterior deltoid muscle edema. Electronically Signed: Marquis Bonilla MD at 12:28 EDT ,
[2024-04-28 13:35] LABS: AST(SGOT) 28 U/L (15-37); Alanine Aminotransfer ALT/SGPT 25 U/L (13-56); Albumin, Serum 3.6 g/dL (3.2-5.0); Alkaline Phosphatase 100 U/L (45-117); Anion Gap 7 (5-15); BUN 17 mg/dL (7-18); BUN/Creat Ratio 17.9 RATIO (10-20); Bilirubin, Direct 0.17 mg/dL (0.00-0.30); Calcium,Total 9.3 mg/dL (8.5-10.1); Chloride 106 mmol/L (98-107); Cholesterol 149 mg/dL (200); Creatinine, Serum 0.95 mg/dL (0.55-1.02); EST Glomerular Filtration Rate 60 mL/min (>60); Est Glom Filt Rate - Afr Amer 73 mL/min (>60); Globulin 3.7 g/dL (2.2-4.2); Glucose 100 mg/dL (74-106); High Density Lipoprotein 56 mg/dL; Protein, Total 7.3 g/dL (6.4-8.2); Sodium Level 139 mmol/L (136-145); Triglycerides 120 mg/dL; Very Low Density Lipoprotein 24 mg/dL (5-40)
== END | disposition home or self-care (01) ==
PROVIDERS: Nurse Practitioner Family; PCP Family Medicine; Referring Provider Family Medicine; Visit Provider Family Medicine
DX: M25.812 Other specified joint disorders, left shoulder (principal); M19.012 Primary osteoarthritis, left shoulder; I10 Essential (primary) hypertension; E78.5 Hyperlipidemia, unspecified; Z95.5 Presence of coronary angioplasty implant and graft
CPT/HCPCS: 36415; 73221; 80048; 80061; 80076

== ENCOUNTER 2024-07-21 13:14 | Emergency (ER) | payer MEDICARE, SELFPAY ==
[2024-07-21] VITALS (16 sets, daily range): BP systolic 120–161; BP diastolic 73–107; PULSE 70–140; RESP 13–28; TEMP 37.3; O2SAT 93–99; BMI 29.5
--- NOTE | 2024-07-21 13:30 | RAD_ITS ---
STUDY: X-RAY CHEST REASON FOR EXAM: Female, 78 years old. Chest pain TECHNIQUE: Single AP portable view of the chest. COMPARISON: Comparison is made with prior study dated August 03, 2023. FINDINGS: EKG electrodes are seen. The lungs are clear and expanded. There is no demonstrated pleural abnormality. Normal size heart. Normal mediastinum and constantine. Normal visualized pulmonary arteries. There is atherosclerotic calcification of the aortic arch with tortuosity. There are diffuse degenerative changes of the visualized thoracic spine. Status post right shoulder replacement. Electrodes from a spinal cord similar device are seen with the tip at the T7-T8 level. Status post fusion of the lower thoracic and upper lumbar vertebrae. Hiatal hernia. RAD/Chest 1 View (Portable) IMPRESSION: Hiatal hernia. The lungs are clear. Electronically Signed: Michael Santiago MD at 14:08 EST ,
--- NOTE | 2024-07-21 13:30 | EKG12_ITS ---
Test Reason : SOB Blood Pressure : */* mmHG Vent. Rate : 82 BPM Atrial Rate : 82 BPM P-R Int : 154 ms QRS Dur : 76 ms QT Int : 376 ms P-R-T Axes : 55 -22 44 degrees QTcB Int : 439 ms Normal sinus rhythm Inferior infarct , age undetermined Abnormal ECG Confirmed by KI CLAIRE MD ([id number]), sound editor ANNA FLOREZ ([id number]) on 07/22/2024 8:59:41 AM Referred By: Confirmed By: KI CLAIRE MD
[2024-07-21 13:44] LABS: Absolute Lymphocyte Count 1.13 X10^3/uL (0.83-4.51); Absolute Neutrophil Count 4.4 X10^3/uL (2.0-7.7); Basophil# 0.04 X10^3/uL; Basophil% 0.6 % (0-1); Eosinophil# 0.12 X10^3/uL; Eosinophils% 1.9 % (0-5); Hematocrit 45.7 % (37-47); Hemoglobin 15.5 g/dL (12.0-15.0); Lymphocyte # 1.13 X10^3/ul (0.83-4.51); Lymphocyte % 17.6 % (19-41); Mean Corp Hgb Conc 33.9 g/dL (32-36); Mean Corpuscular Hgb 33.1 pg (27.0-32.0); Mean Corpuscular Volume 97.6 fL (81-99); Mean Platelet Vol. 11.3 fl (6.2-12.0); Monocyte# 0.66 X10^3/uL; Monocyte% 10.3 % (0-10); NRBC Flagged by Analyzer 0 % (0-5); Neutrophil # 4.44 X10^3/uL (2.7-7.7); Neutrophil % 69.3 % (47-70); Platelet Count 254 K/mm3 (150-450); RBC Distribution Width CV 12.8 % (11.6-14.6); RBC Distribution Width SD 45.6 fl (35.1-43.9); Red Blood Count 4.68 M/mm3 (4.2-5.4); White Blood Count 6.4 K/mm3 (4.4-11.0)
--- NOTE | 2024-07-21 13:46 | ED.VIS.DYS ---
HPI History of Present Illness Chief Complaint: Shortness of Breath Informant: patient Narrative Narrative: Patient is an 6-year-old female with history of coronary artery disease status post stent placement, hypertension, hypothyroidism with prior abnormal stress test 1 year ago presenting with worsening shortness of breath and dizziness. Patient states for the past week she has had progressively worsening shortness of breath and dyspnea on exertion. She states when she exerts herself or gets up at night or starts moving and she starts feeling the room spinning. When asked to describe the sensation she actually states it feels more like she is going to pass out and feels lightheaded versus the room spinning. She denies associated chest tightness or pain. Denies any cough. Eyes any swelling of her legs. Does feel her heart is racing sometimes. States 7 years ago when she had symptoms like this she ended up with some stents. Did note a cardiac workup last year which she states was normal. Chart review shows that patient had a cardiac catheterization on 08/14/2023 for positive indeterminate stress test. She was noted to have stents to proximal LAD and RCA that were patent, 50% proximal and 50% mid L CX as well as an EF of 70%. Medical treatment was recommended at this time. [facility] Medical History Abnormal stress test Dyslipidemia Lumbar spondylosis Wears glasses Post-menopausal Thyroid disease High cholesterol Back pain Injury of head and neck Non-smoker Chronic cough Shortness of breath on exertion History of echocardiogram History of stress test Cardiology follow-up encounter Spinal cord stimulator status TRINIDAD (dyspnea on exertion) Fatigue Non-rheumatic tricuspid valve insufficiency Essential hypertension Bruised rib CAD (coronary artery disease) Presence of stent in coronary artery (~02/23/21) Atherosclerotic heart disease of [place] coronary artery without angina pectoris Non-ST elevation (NSTEMI) myocardial infarction Anxiety Depression Hypothyroidism Vitamin D deficiency Left shoulder strain Hypothyroidism (acquired) Osteoporosis HTN (hypertension) Sternum fx Closed odontoid fracture Vertebral fracture, osteoporotic Osteoporosis Osteoarthritis GERD (gastroesophageal reflux disease) Rib pain on left side GERD (gastroesophageal reflux disease) Arthritis Depression Dyspnea Irritant contact dermatitis due to plants, except food Home Medications ?Medication ?Instructions ?Recorded ?Last Taken ?Type bupropion HCl 150 mg tablet,12 hr 150 mg PO BID anxiety 12/28/13 08/14/23 History sustained-release omeprazole 20 mg capsule,delayed 20 mg PO QHS acid reflux 12/28/13 01/23/21 History release atorvastatin 40 mg tablet 40 mg PO QHS #90 tabs 01/26/21 Unknown Rx calcium 600 mg (as 1 tab PO DAILY 02/14/21 Unknown History carbonate)-vitamin D3 10 mcg (400 unit) tablet denosumab 60 mg/mL subcutaneous 60 mg subcut [id number] bone health 04/19/22 Unknown Rx syringe (Prolia) #1 mL buspirone 15 mg tablet 15 mg PO BID MENTAL HEALTH 05/24/22 08/14/23 History lisinopril 10 mg tablet 10 mg PO DAILY 05/24/22 08/14/23 History hydrocodone-acetaminophen 5-325mg 1 tab PO Q8H PRN Pain 7 days #90 12/20/22 Unknown Rx 5mg-325mg tabs furosemide 40 mg tablet 40 mg PO DAILY #90 tabs 07/23/23 Unknown Rx metoprolol succinate 25 mg 25 mg PO BID #180 tabs 08/12/23 08/14/23 Rx tablet,extended release 24 hr levothyroxine 50 mcg tablet 50 mcg PO DAILY #90 tabs 12/19/23 Unknown Rx amlodipine 2.5 mg tablet See Rx Instructions .Route 04/13/24 Unknown Rx .COMPLEX #90 tabs aspirin 81 mg tablet,delayed 81 mg PO Q OTHER DAY 04/13/24 Unknown History release mirtazapine 7.5 mg tablet 7.5 mg PO QHS 04/13/24 Unknown History Allergy/AdvReac Type Severity Reaction Status Date / Time codeine Allergy swelling Verified 07/21/24 13:17 of face Family History Father Myocardial infarction, Onset Age: 64 Surgical History History of back surgery History of cardiac catheterization (~08/14/23) Hx of colonoscopy Hx of arthroscopic knee surgery History of bunionectomy of left great toe History of lumbar spinal fusion Presence of coronary angioplasty implant and graft (~01/25/21) H/O carpal tunnel repair Status post bilateral knee replacements History of right shoulder replacement Hx of spinal surgery Social History household members: spouse housing: house Smoking Status: Never smoker alcohol intake: never substance use type: does not use caffeine: Yes Type: coffee Number of servings: 1 what type of physical activity do you participate in: none do you feel safe at home: Yes ROS ROS ED Constitutional Constitutional ED: Denies chills or fever(s) Eyes Eyes: Denies blurry vision or change in vision Cardiovascular Cardiovascular: Reports racing heartbeat; Denies chest pain Respiratory/Chest Respiratory/Chest: Reports dyspnea and dyspnea on exertion; Denies cough Gastrointestinal Gastrointestinal: Reports nausea; Denies abdominal pain or vomiting Musculoskeletal Musculoskeletal: Denies arthralgias or myalgias Integumentary Denies rash Neurologic Neurologic: Denies headache(s) Hematologic/Lymphatic Hematologic/Lymphatic: Reports easy bruising; Denies easy bleeding EXAM Physical Exam Const Vital Signs: 07/21/24 13:15 07/21/24 13:15 07/21/24 13:40 Temperature 99.1 F Temperature Source Oral Pulse Rate 131 H Pulse Rate [Lying] Pulse Rate [Sitting (for 1 minute prior to obtaining)] Pulse Rate [Standing (for 1 minute prior to obtaining)] Respiratory Rate 16 Respiratory Effort Short of Breath Respiratory Depth Normal Respiratory Pattern Normal Blood Pressure 136/98 H Blood Pressure [Lying] Blood Pressure [Sitting (for 1 minute prior to obtaining)] Blood Pressure [Standing (for 1 minute prior to obtaining)] Blood Pressure Mean 110 Blood Pressure Mean [Lying] Blood Pressure Mean [Sitting (for 1 minute prior to obtaining)] Blood Pressure Mean [Standing (for 1 minute prior to obtaining)] Pulse Ox 97 Oxygen Delivery Method Room Air Room Air Room Air 07/21/24 15:02 07/21/24 15:02 07/21/24 15:07 Temperature Temperature Source Pulse Rate 92 Pulse Rate [Lying] 82 Pulse Rate [Sitting (for 1 minute prior to obtaining)] 80 Pulse Rate [Standing (for 1 minute prior to obtaining)] 98 Respiratory Rate 16 Respiratory Effort Respiratory Depth Respiratory Pattern Blood Pressure 161/98 H Blood Pressure [Lying] 141/89 H Blood Pressure [Sitting (for 1 minute prior to obtaining)] 159/88 H Blood Pressure [Standing (for 1 minute prior to obtaining)] 161/98 H Blood Pressure Mean 119 Blood Pressure Mean [Lying] 106 Blood Pressure Mean [Sitting (for 1 minute prior to obtaining)] 111 Blood Pressure Mean [Standing (for 1 minute prior to obtaining)] 119 Pulse Ox 98 Oxygen Delivery Method Room Air Positive well nourished and well developed General Appearance ED: well developed and NAD HEENT Reports moist mucous membranes Eyes PERRL and EOMs intact bilaterally Neck supple and no JVD Resp normal respiratory effort and clear to auscultation bilaterally Cardio regular rate, regular rhythm and no murmurs GI non-tender and non-distended Extremity normal to inspection Extremity Narrative: 2+ radial DP pulses present Neuro oriented x3 Sensorium / Orientation: alert Motor Exam: Negative for general weakness Psych mental status grossly normal Skin no wounds MDM MDM MDM Narrative Medical decision making narrative: Patient's evaluated for worsening dyspnea on exertion and shortness of breath. She initially states she is dizzy and states it feels like the room spinning but on further discussion it sounds more like near syncope and she feels that she is going to consistently pass out. Differential includes ACS, pulmonary emboli, CHF exacerbation, pericardial effusion, pleural effusion, thyroid dysfunction as well as pneumonia. She does not report fever and lower suspicion for any acute infectious etiology. Cardiac workup is obtained. While in the ER patient does have an episode of sinus arrhythmia with a heart rate going up to the 130s. He was caught on telemetry and appears more consistent with sinus tachycardia and not atrial fibrillation. Patient's orthostatics are negative with no change in her blood pressure and she is asymptomatic but her heart rate does go up 18 points. CTA of the chest does not show any pulmonary emboli but does show hypodensity of the left main pulmonary artery which could be associated with possible intimal tear and recommends echocardiogram. It also shows emphysematous changes. Cardiology paged to discuss this further. Do think patient benefit from admission especially given this tacky arrhythmia and her progressing symptoms over the past week. Patient signed out to oncoming physician for final disposition. Lab Data Attestation: I reviewed the patient's lab results. Labs: Laboratory Results - last 24 hr 07/21/24 07/21/24 13:33 14:46 WBC 6.4 RBC 4.68 Hgb 15.5 H Hct 45.7 MCV 97.6 MCH 33.1 H MCHC 33.9 RDW Std Deviation 45.6 H RDW Coeff of [place] 12.8 Plt Count 254 MPV 11.3 Immature Gran % (Auto) 0.300 Neut % (Auto) 69.3 Lymph % (Auto) 17.6 L [place] % (Auto) 10.3 H Eos % (Auto) 1.9 Baso % (Auto) 0.6 Absolute Neuts (auto) 4.4 Absolute Lymphs (auto) 1.13 Nucleated RBC % 0 D-Dimer Quant (PE/DVT) 1.17 H* Sodium 136 Potassium 4.2 Chloride 103 Carbon Dioxide 26.0 Anion Gap 7 BUN 28 H Creatinine 1.08 H Estim Creat Clear Calc 34.70 Est GFR (MDRD) Af Amer 63 Est GFR (MDRD) Non-Af 52 L BUN/Creatinine Ratio 25.9 H Glucose 117 H Calcium 9.7 Troponin I High Sens 10 B-Natriuretic Peptide 62.0 TSH 2.860 Urine Color Yellow Urine Clarity Clear Urine pH 7.0 Ur Specific [place] 1.010 Urine Protein Negative Urine Glucose (UA) Normal Urine Ketones Negative Urine Occult Blood Negative Urine Nitrite Negative Urine Bilirubin Negative Urine Urobilinogen Normal Ur Leukocyte Esterase 100 H Urine RBC 0 SEEN Urine WBC 0-5 SEEN Ur Squamous Epith Cells 0-5 SEEN Ur Transition Epith Cell 0-5 SEEN Urine Bacteria 1+ Urine Mucus 0 SEEN Radiography Diagnostic Testing: Clinical Impression(s) from Imaging Studies Chest X-Ray 07/21/24 13:30 IMPRESSION: Hiatal hernia. The lungs are clear. Electronically Signed: Michael Santiago MD at 14:08 EST , Chest CTA 07/21/24 14:09 IMPRESSION: No evidence of pulmonary embolism. Linear hypodensity seen at the origin of the left main pulmonary artery as seen on axial image #145 and coronal image #23. Correlation with the echocardiogram recommended to rule out possible intimal tear. Emphysematous changes. Electronically Signed: Michael Santiago MD at 14:51 EST , Rhythm Strip Rhythm Strip: Sinus Rhythm Rate: 82 EKG Initial EKG: Attestation: I personally reviewed and interpreted this EKG as follows: Interpretation: Sinus Rhythm Comments: Normal sinus rhythm at a rate of 82 bpm Normal axis Normal intervals Normal ST segments Compared to prior EKG on, no acute changes Discharge Plan Triage Chief Complaint: Shortness of Breath ED Provider: Luci Evans Dx/Rx/DC Orders Clinical Impression: TRINIDAD (dyspnea on exertion), Tachycardia, Abnormal computed tomography angiography (CTA) Prescriptions: No Action calcium carbonate-vitamin D3 600 mg(1,500mg) -400 unit tablet 1 tab PO DAILY lisinopril 10 mg tablet 10 mg PO DAILY mirtazapine 7.5 mg tablet 7.5 mg PO QHS aspirin 81 mg tablet,delayed release (DR/EC) 81 mg PO Q OTHER DAY bupropion HCl 150 MG tablet extended release 12 hr 150 mg PO BID omeprazole 20 MG capsule 20 mg PO QHS atorvastatin 40 mg Tablet 40 mg PO QHS Qty: 90 0RF buspirone 15 mg tablet 15 mg PO BID hydrocodone-acetaminophen 5-325 mg tablet 1 tab PO Q8H PRN (Reason: Pain) 7 Days Qty: 90 0RF Prolia 60 mg/mL syringe 60 mg subcut [id number] Qty: 1 1RF furosemide 40 mg tablet 40 mg PO DAILY Qty: 90 3RF metoprolol succinate 25 mg tablet extended release 24 hr 25 mg PO BID Qty: 180 3RF levothyroxine 50 mcg tablet 50 mcg PO DAILY Qty: 90 3RF amlodipine 2.5 mg tablet See Rx Instructions .ROUTE .COMPLEX Qty: 90 3RF Dose Instruction: take 1 tablet by mouth daily Rx Instructions: take 1 tablet by mouth daily Primary Care Provider: Richard Amin Referrals: Richard Amin DO [Primary Care Provider] - Print Language: Thai
[2024-07-21 14:04] LABS: D-Dimer Quantitative (DVT/PE) 1.17 FEU/ug/m (0.27-0.49)
[2024-07-21 14:05] LABS: Anion Gap 7 (5-15); BUN 28 mg/dL (7-18); BUN/Creat Ratio 25.9 RATIO (10-20); Calcium,Total 9.7 mg/dL (8.5-10.1); Chloride 103 mmol/L (98-107); Creatinine, Serum 1.08 mg/dL (0.55-1.02); EST Glomerular Filtration Rate 52 mL/min (>60); Est Glom Filt Rate - Afr Amer 63 mL/min (>60); Glucose 117 mg/dL (74-106); Potassium 4.2 mmol/L (3.5-5.1); Sodium Level 136 mmol/L (136-145); Troponin-I HS (w/2H Reflex) 10 pg/mL (3.0-54.0)
--- NOTE | 2024-07-21 14:09 | CT_ITS ---
STUDY: CTA CHEST REASON FOR EXAM: Female, 78 years old. SOB, elevated dimer, PE protocol RADIATION DOSAGE (If Supplied By Facility): CTDIvol = ( 7.91 ) mGy, DLP = ( 286.29 ) mGycm TECHNIQUE: The examination was performed with the intravenous administration of IV 75mL Isovue-370. Post-processing of the angiographic images was performed, with multiplanar reformation and 3D reconstruction. Individualized dose optimization techniques were used for this CT. COMPARISON: Comparison is made with prior study dated March 10, 2018 and prior chest radiograph done earlier today. FINDINGS: Normal enhancement of the main pulmonary artery and right and left pulmonary arteries. Normal enhancement of the bilateral peripheral pulmonary arteries. There is no demonstrated pulmonary embolism. Linear hypodensity is seen in the proximal aspect of the left main pulmonary artery. Correlation with echocardiogram is recommended to assess possible dissection. There is atherosclerotic calcification of the aortic arch with tortuosity. There is no demonstrated aortic dissection. There are calcifications of the coronary arteries. Normal mediastinum. Normal hilar regions. Normal visualized trachea and bronchi. The lungs are well expanded. Calcified granuloma in the right upper lobe. Focal pleural thickening along the lateral aspect of the right upper lobe. Mild degree of emphysematous changes. Normal pleura. Normal chest wall structures. There are degenerative changes of thoracic spine. Increased kyphosis. Spinal cord stimulator device is seen. Prior indeterminate sclerotic fixation of the visualized upper lumbar spine. Normal visualized upper abdomen. CT/CTA Chest W/WO Contrast IMPRESSION: No evidence of pulmonary embolism. Linear hypodensity seen at the origin of the left main pulmonary artery as seen on axial image #145 and coronal image #23. Correlation with the echocardiogram recommended to rule out possible intimal tear. Emphysematous changes. Electronically Signed: Michael Santiago MD at 14:51 EST ,
[2024-07-21 14:51] LABS: Mucous, Urine 0 SEEN /hpf (<or=2+); Red Blood Cells-Urine 0 SEEN /hpf (0-5)
[2024-07-21 14:52] LABS: Color, Urine Yellow (Yellow); Glucose, Dipstick Normal (Normal); Ketone-Dipstick Negative (Negative); Leukocyte Esterase-Dipstick 100 /ul (Negative); Nitrite-Dipstick Negative (Negative); Occult Blood-Urine Negative /ul (Negative); Protein-Dipstick Negative (Negative); Urine Bilirubin Dipstick Negative (Negative); Urine Clarity Clear (Clear); Urine Urobilinogen Normal (Normal)
[2024-07-21 15:12] LABS: Bacteria 1+ /hpf (None Seen); Squamous Epithelial Cells - UA 0-5 SEEN /hpf (5-10); Transitional Epithelial - Ur 0-5 SEEN /hpf (0-5); White Blood Cells 0-5 SEEN /hpf (0-5)
[2024-07-21 15:37] LABS: Reflex Troponin-HS? (from REC) Y
[2024-07-21 16:10] LABS: Troponin-I HS 11 pg/mL (3.0-54.0)
[2024-07-21] MEDS: buPROPion (SR) 150 MG Tablet.SA PO (20:24)
[2024-07-21] MEDS: Mirtazapine 15 MG Tablet 7.5 MG PO (20:24)
[2024-07-21] MEDS: Metoprolol(XL)Succ 25 MG Tablet PO (20:24)
[2024-07-21] MEDS: busPIRone 15 MG TABLET PO (20:24)
--- NOTE | 2024-07-21 20:45 | ED.RN ---
This typing secretary called [facility] for status update, pt NOT accepted yet, still waiting DR call back. I spoke corby Monroe at transfer center.
--- NOTE | 2024-07-22 00:15 | ED.RN ---
CALLED HUSAM AT [phone] TO WAIT FOR CALL BACK. DEMO FAXED
[2024-07-22] MEDS: Ondansetron 4 MG/2 ML Vial IV (00:18)
[2024-07-22] MEDS: Morphine 4 MG/ML Syringe IV (00:18)
[2024-07-22 01:00] VITALS: BP 138/83; PULSE 67; RESP 17; O2SAT 97
--- NOTE | 2024-07-22 02:04 | ED.RN ---
pt accepted at [address] transport eta 6am, asked physician's to outsource. to call back w updates
[2024-07-22 03:00] VITALS: BP 141/79; PULSE 65; RESP 14; O2SAT 95
[2024-07-22 03:59] VITALS: BP 141/79; PULSE 64; RESP 12; TEMP 36.6; O2SAT 95
[2024-07-22 05:00] VITALS: BP 147/83; PULSE 63; RESP 15; O2SAT 97
== END 2024-07-22 06:32 | disposition short-term general hospital (02) ==
PROVIDERS: Emergency Provider Emergency Medicine; PCP Family Medicine; Visit Provider Emergency Medicine
DX: R06.09 Other forms of dyspnea (principal); R79.1 Abnormal coagulation profile; R93.1 Abnormal findings on diagnostic imaging of heart and coronary circulation; R00.0 Tachycardia, unspecified; I10 Essential (primary) hypertension; I25.2 Old myocardial infarction; I25.10 Atherosclerotic heart disease of native coronary artery without angina pectoris; F41.9 Anxiety disorder, unspecified; F32.A Depression, unspecified; K21.9 Gastro-esophageal reflux disease without esophagitis; E03.9 Hypothyroidism, unspecified; E55.9 Vitamin D deficiency, unspecified; E78.00 Pure hypercholesterolemia, unspecified; M81.0 Age-related osteoporosis without current pathological fracture; M19.90 Unspecified osteoarthritis, unspecified site; M47.816 Spondylosis without myelopathy or radiculopathy, lumbar region; Z95.1 Presence of aortocoronary bypass graft; Z98.1 Arthrodesis status; Z79.82 Long term (current) use of aspirin; Z79.899 Other long term (current) drug therapy; Z79.890 Hormone replacement therapy; Z96.653 Presence of artificial knee joint, bilateral; Z96.611 Presence of right artificial shoulder joint
CPT/HCPCS: 71045; 71275; 80048; 81001; 83880; 84443; 84484; 85025; 85379; 93005; 96374; 96375; 99285; Q9967; A4216; J2405

== ENCOUNTER → 2024-07-29 | Outpatient (CLI) | payer MEDICARE, SELFPAY ==
[2024-07-29 15:15] LABS: Mucous, Urine 0 SEEN /hpf (<or=2+)
[2024-07-29 15:20] LABS: Hematocrit 44.5 % (37-47); Mean Corp Hgb Conc 33.7 g/dL (32-36); Mean Corpuscular Hgb 33.4 pg (27.0-32.0); Mean Corpuscular Volume 99.1 fL (81-99); Mean Platelet Vol. 11.2 fl (6.2-12.0); Platelet Count 247 K/mm3 (150-450); RBC Distribution Width CV 13.1 % (11.6-14.6); RBC Distribution Width SD 47.6 fl (35.1-43.9); Red Blood Count 4.49 M/mm3 (4.2-5.4); White Blood Count 7.4 K/mm3 (4.4-11.0)
[2024-07-29 15:49] LABS: ALB/GLOB Ratio 1.1 RATIO (0.9-2.4); AST(SGOT) 21 U/L (15-37); Alanine Aminotransfer ALT/SGPT 21 U/L (13-56); Albumin, Serum 3.7 g/dL (3.2-5.0); Alkaline Phosphatase 85 U/L (45-117); Anion Gap 5 (5-15); BUN 23 mg/dL (7-18); BUN/Creat Ratio 26.2 RATIO (10-20); Calcium,Total 9.8 mg/dL (8.5-10.1); Chloride 106 mmol/L (98-107); Creatinine, Serum 0.88 mg/dL (0.55-1.02); EST Glomerular Filtration Rate 66 mL/min (>60); Est Glom Filt Rate - Afr Amer 80 mL/min (>60); Globulin 3.5 g/dL (2.2-4.2); Glucose 101 mg/dL (74-106); Potassium 4.3 mmol/L (3.5-5.1); Protein, Total 7.2 g/dL (6.4-8.2); Sodium Level 137 mmol/L (136-145)
[2024-07-29 15:53] LABS: Color, Urine Yellow (Yellow); Glucose, Dipstick Normal (Normal); Ketone-Dipstick Negative (Negative); Leukocyte Esterase-Dipstick 25 /ul (Negative); Nitrite-Dipstick Negative (Negative); Occult Blood-Urine Negative /ul (Negative); Protein-Dipstick 15 mg/dl (Negative); Urine Bilirubin Dipstick Negative (Negative); Urine Clarity Clear (Clear); Urine Urobilinogen Normal (Normal)
[2024-07-29 16:23] LABS: Bacteria RARE /hpf (None Seen); Hyaline Cast 0-5 SEEN /lpf (0-5)
[2024-07-29 16:24] LABS: Red Blood Cells-Urine 0-5 SEEN /hpf (0-5); Squamous Epithelial Cells - UA 0-5 SEEN /hpf (5-10); Transitional Epithelial - Ur 0-5 SEEN /hpf (0-5); White Blood Cells 0-5 SEEN /hpf (0-5)
== END | disposition home or self-care (01) ==
LOC: LAB 14:53
PROVIDERS: PCP Family Medicine; Referring Provider Internal Medicine Cardiovascular Disease; Visit Provider Internal Medicine Cardiovascular Disease
DX: I10 Essential (primary) hypertension (principal); R53.83 Other fatigue
CPT/HCPCS: 36415; 80053; 81001; 85027

== ENCOUNTER → 2024-08-18 | Outpatient (CLI) | payer MEDICARE, SELFPAY ==
--- NOTE | 2024-08-18 06:21 | RAD_ITS ---
STUDY: X-RAY CHEST REASON FOR EXAM: Female, 78 years old. Tachycardia TECHNIQUE: PA and lateral views of the chest. COMPARISON: Comparison is made with prior study dated July 21, 2024. FINDINGS: The lungs are clear and expanded. There is no demonstrated pleural abnormality. Normal size heart. Normal mediastinum and constantine. Normal visualized pulmonary arteries. There is atherosclerotic calcification of the aortic arch with tortuosity. There are diffuse degenerative changes of the visualized thoracic spine. Prior multiple level fusion of the distal thoracic and lumbar spine. Electrodes from a spinal cord similar device are seen. Status post right shoulder replacement. Hiatal hernia. RAD/Chest PA and Lateral IMPRESSION: No acute abnormality is seen. Electronically Signed: Michael Santiago MD at 15:11 EST ,
--- NOTE | 2024-08-18 06:21 | CDU_ITS ---
Reason For Study: Dizziness, Vertigo Rt. Velocities/BP Lt. Velocities/BP Prox CCA 51/9 cm/sec. Prox CCA 67/12 cm/sec. Mid CCA 49/11 cm/sec. Mid CCA 62/10 cm/sec. Dist CCA 53/14 cm/sec. Dist CCA 47/10 cm/sec. Prox ICA 47/11 cm/sec. Prox ICA 42/13 cm/sec. Mid ICA 51/18 cm/sec. Mid ICA 55/15 cm/sec. Dist ICA 90/26 cm/sec. Dist ICA 55/18 cm/sec. Rt. ICA/CCA = 1.8. Lt. ICA/CCA = 0.9. Prox ECA 46/3 cm/sec. Prox ECA 52/0 cm/sec. Rt. Vert. 49/9 cm/sec. Lt. Vert. 45/12 cm/sec. Right Extracranial There is heterogeneous, irregular atherosclerotic plaque noted in the right common carotid artery. There is heterogeneous, irregular atherosclerotic plaque noted in the right internal carotid artery. There is heterogeneous, irregular atherosclerotic plaque noted in the right external carotid artery. Antegrade flow is noted in the right vertebral artery. Left Extracranial There is heterogeneous, irregular atherosclerotic plaque noted in the left common carotid artery. There is heterogeneous, irregular atherosclerotic plaque noted in the left internal carotid artery. There is intimal thickening but no significant atherosclerotic plaque noted in the left external carotid artery. Antegrade flow is noted in the left vertebral artery. Procedure Carotid Duplex 19446. This is a Carotid Duplex examination using B-mode, color flow and specral Doppler. Exam performed in department. VL/Carotid Duplex Ultrasound Interpretation Summary Mild (<50%) stenosis right extracranial internal carotid. Mild (<50%) stenosis left extracranial internal carotid. Patent and antegrade vertebrals bilaterally. Ordering Physician: Yakov Rodriguez Referring Physician: Richard Amin Performed By: Marianne Keenan, RIANCS, RVT
--- NOTE | 2024-08-18 09:58 | STRESSREP ---
Stress Test Report Date: 08/18/2024 Procedure: Pharmacologic stress nuclear imaging study Indications: Coronary artery disease Consent: Per the patient Procedure: The patient underwent pharmacologic (Regadenoson 0.4mg ) evaluation with a peak heart rate of 83 beats per minute (59%predicted maximal heart rate) and a peak blood pressure of 132/80 mmHg. The baseline ECG demonstrated sinus rhythm with nonspecific ST changes. The peak pharmacologic ECG demonstrated no diagnostic changes secondary to baseline abnormality. There were no cardiac dysrhythmias pretest, during pharmacologic infusion, or recovery. There was no complaint of chest discomfort during pharmacologic infusion or recovery. The patient was injected with 11.8 millicuries of technetium 99m Cardiolite and subsequently rest SPECT Cardiolite nuclear imaging was obtained in the horizontal long, vertical long, and short axis views. The patient underwent pharmacologic (Regadenoson) evaluation. The patient was injected with 34.4 millicuries of technetium 99m Cardiolite and subsequently stress SPECT Cardiolite nuclear imaging was obtained in the horizontal long, vertical long, and short axis views. A gated Cardiolite study at peak stress was obtained. The examination was stopped secondary to completion of protocol. Rest and stress SPECT Cardiolite nuclear imaging status post realignment, normalization, and attenuation correction demonstrate no fixed or reversible perfusion defects. There is end systolic thickening and brightening. The gated Cardiolite study demonstrates myocardial thickening and inward wall motion. The reported LVEF is 43%. Impression: 1. Pharmacologic (Regadenoson) evaluation 2. Peak pharmacologic ECG with no diagnostic changes. 3. There were no cardiac dysrhythmias pretest, during pharmacologic infusion, or recovery. 5. Rest and stress SPECT Cardiolite nuclear imaging demonstrate relative uniform tracer uptake and myocardial perfusion appearing within normal limits. 6. The gated Cardiolite study reports an LVEF of 43%. This note was generated with [employer] software. It may contain incorrect words, spelling, and punctuation that were not noted in checking the note before signing.
== END | disposition home or self-care (01) ==
PROVIDERS: PCP Family Medicine; Referring Provider Internal Medicine Cardiovascular Disease; Visit Provider Internal Medicine Cardiovascular Disease
DX: R42 Dizziness and giddiness (principal); R93.89 Abnormal findings on diagnostic imaging of other specified body structures; R00.0 Tachycardia, unspecified; I25.10 Atherosclerotic heart disease of native coronary artery without angina pectoris; R06.09 Other forms of dyspnea; E78.5 Hyperlipidemia, unspecified; I10 Essential (primary) hypertension; R53.83 Other fatigue; Z95.5 Presence of coronary angioplasty implant and graft
CPT/HCPCS: 71046; 78452; 93017; 93880; 94060; 94726; 94729; A9500; A4216; J2785

== ENCOUNTER 2024-10-12 17:28 | Inpatient (IN) | payer MEDICARE, SELFPAY ==
[2024-10-12 17:40] VITALS: BP 116/75; PULSE 70; RESP 18; TEMP 36.1; O2SAT 97
[2024-10-12 17:47] VITALS: BMI 24.5
[2024-10-12 18:10] VITALS: BMI 24.5
--- NOTE | 2024-10-12 19:08 | HP.PCM_ITS ---
HPI - General General Date of Admission: 10/12/24 Date of Service: 10/12/24 Chief Complaint: Here for rehabilitation. HPI Narrative ELIAN ALVARADO, is a 79 Female who presents with followin10/05/2024 Left shoulder pain, steroid injection x 2 not helpful. 10/08/2024 Admit to [facility]. 10/08/2024 Dr. Foley performed left reverse total shoulder arthroplasty. Postoperative course uncomplicated. 10/12/2024 Admit to TCU with debility, here for rehabilitation, strengthening, prior to discharge home alone. [facility] Medical History (Updated 10/12/24 @ 19:[address] Zeus Duke MD) Abnormal stress test Dyslipidemia Lumbar spondylosis Wears glasses Post-menopausal Thyroid disease High cholesterol Back pain Injury of head and neck Non-smoker Chronic cough Shortness of breath on exertion History of echocardiogram History of stress test Cardiology follow-up encounter Spinal cord stimulator status [place] (dyspnea on exertion) Fatigue Non-rheumatic tricuspid valve insufficiency Essential hypertension Bruised rib CAD (coronary artery disease) Presence of stent in coronary artery (~02/23/21) Atherosclerotic heart disease of [place] coronary artery without angina pectoris Non-ST elevation (NSTEMI) myocardial infarction Anxiety Depression Hypothyroidism Vitamin D deficiency Left shoulder strain Hypothyroidism (acquired) Osteoporosis HTN (hypertension) Sternum fx Closed odontoid fracture Vertebral fracture, osteoporotic Osteoporosis Osteoarthritis GERD (gastroesophageal reflux disease) Rib pain on left side GERD (gastroesophageal reflux disease) Arthritis Depression Dyspnea Irritant contact dermatitis due to plants, except food Home Medications ?Medication ?Instructions ?Recorded ?Last Taken ?Type bupropion HCl 150 mg tablet,12 hr 150 mg PO BID anxiet y 12/28/13 08/14/23 History sustained-release omeprazole 20 mg capsule,delayed 20 mg PO QHS acid ref lux 12/28/13 01/23/21 History release atorvastatin 40 mg tablet 40 mg PO QHS cholesterol #90 tabs 01/26/21 Unknown Rx calcium 600 mg (as 1 tab PO DAILY supple Unknown History carbonate)-vitamin D3 10 mcg (400 unit) tablet denosumab 60 mg/mL subcutaneous 60 mg subcut [id number] bone health 04/19/22 Unknown Rx syringe (Prolia) #1 mL buspirone 15 mg tablet 15 mg PO BID MENTAL HEALTH 0 05/24/22 08/14/23 History levothyroxine 50 mcg tablet 50 mcg PO DAILY synthroid #90 tabs 12/19/23 Unknown Rx aspirin 81 mg tablet,delayed 81 mg PO DAILY heart heal th 04/13/24 Unknown History release mirtazapine 7.5 mg tablet 7.5 mg PO QHS sleep 04/13/24 Unknown History clobetasol 0.05 % scalp solution 1 applic topical PRN when shampoo 07/21/24 Unknown History clobetasol 0.05 % shampoo 1 applic topical PRN when sh ampoo 07/21/24 Unknown History nabumetone 750 mg tablet 750 mg PO BID pain 07/21/24 Unknown History amlodipine 2.5 mg tablet 2.5 mg PO QDAY BP #90 tabs 1 09/28/23 Unknown Rx lisinopril 5 mg tablet 5 mg PO QDAY BP #90 tabs Unknown Rx metoprolol succinate 100 mg 100 mg PO QDAY BP #90 tabs 07/29/24 Unknown Rx tablet,extended release 24 hr hydrocodone-acetaminophen 5-325mg 1 tab PO Q6H PRN Ekaterina n 10/12/24 Unknown History 5mg-325mg Held on 10/12/24. Instructions: Order Changed oxycodone-acetaminophen 5 mg-325 1 tab PO Q6H PRN pain (scale score 10/12/24 Unknown History mg tablet (Percocet) 6-10) Allergy/AdvReac Type Severity Reaction Status Date / Time codeine Allergy swelling Verified 07/29/24 13:41 of face Family History Father Myocardial infarction, Onset Age: 64 Surgical History (Updated 10/12/24 @ 19:[address] Zeus Duke MD) History of reverse total replacement of left shoulder joint History of back surgery History of cardiac catheterization (~08/14/23) Hx of colonoscopy Hx of arthroscopic knee surgery History of bunionectomy of left great toe History of lumbar spinal fusion Presence of coronary angioplasty implant and graft (~01/25/21) H/O carpal tunnel repair Status post bilateral knee replacements History of right shoulder replacement Hx of spinal surgery Social History (Updated 10/12/24 @ 19:[address] Zeus Duke MD) household members: none housing: house Smoking Status: Never smoker alcohol intake: never substance use type: does not use caffeine: Yes Type: coffee Number of servings: 1 what type of physical activity do you participate in: none do you feel safe at home: Yes ROS Constitutional Constitutional: Reports weakness; Denies chills, fever(s) or weight gain ENT HEENT: Denies headache(s), nasal congestion or nasal discharge Cardiovascular Cardiovascular: Denies chest pain or palpitations Respiratory/Chest Respiratory/Chest: Denies cough, excessive phlegm production or shortness of breath with exertion Gastrointestinal Gastrointestinal: Denies abdominal pain, nausea or vomiting Genitourinary Genitourinary: Denies dysuria Musculoskeletal Musculoskeletal: Denies joint pain or joint swelling Integumentary Integumentary: Denies rash or wounds Neurologic Neurologic: Denies focal weakness, numbness or tingling Psychiatric Psychiatric: Denies anxiety, auditory hallucinations, depression, homicidal ideation or suicidal ideation Vital Signs Vital Signs Vital Signs: 10/12/24 17:40 10/12/24 18:37 Temperature 97 F L Temperature Source Temporal Pulse Rate 70 Pulse Rhythm Irregular Pulse Strength Normal (2+) Respiratory Rate 18 Respiratory Effort Normal Non-Labored Respiratory Depth Normal Respiratory Pattern Normal Blood Pressure 116/75 Blood Pressure Mean 88 Pulse Ox 97 Oxygen Delivery Method Room Air Room Air Weight Weight: 53.155 kg Body Mass Index (BMI) 24.5 Physical Exam Const alert General Appearance: cooperative HEENT normocephalic Eyes PERRL and EOMs intact bilaterally Neck supple, no JVD and no carotid bruits Resp normal respiratory effort, normal air movement and clear to auscultation bila terally Cardio regular rate and regular rhythm GI normal to inspection, nondistended, normoactive bowel sounds, non-tender and non-distended Extremity normal capillary refill Extremity Narrative: Left upper extremity sling. General Extremity: Negative for edema Skin no rashes or lesions noted General Skin Exam: no breakdown Psych affect normal Appearance: appropriate Assessment & Plan Assessment/Plan (1) Debility: (2) Status post reverse total arthroplasty of left shoulder: (3) Coronary artery disease: (4) Essential hypertension: (5) Hypothyroidism: (6) Low back pain: (7) Depression: (8) Anxiety: (9) Osteoporosis: QUALIFIERS: Osteoporosis type: age-related Presence of current pathological fracture: without current pathological fracture Qualified Code(s): M81.0 - Age-related osteoporosis without current pathological fracture (10) GERD (gastroesophageal reflux disease): PLAN: Plan 79 year old female with below past medical history hospitalized for left reverse total shoulder arthroplasty 10/08/[address] Foley, postoperative course uncomplicated, admitted to TCU with debility, here for rehabilitation, strengthening, prior to discharge home alone. * Debility - PT/OT. * Pain - Tylenol 1000mg q6 prn pain (1-5), Oxycodone 5mg q4 prn pain (6-10). * Bowel - senna/colace 1 tablet bid, Magnesium citrate 300mL daily prn. * Adult immunization - Administer pneumonia vaccine, covid vaccine, flu vaccine as appropriate. * DVT prophylaxis - Lovenox 40mg sc daily. * Hypertension - Metoprolol succinate 100mg daily, Lisinopril 5mg daily, Amlodipine 2.5mg daily. * Coronary Artery Disease - Metoprolol succinate 100mg daily, Lisinopril 5mg daily, Aspirin 81mg daily. * Hyperlipidemia - Atorvastatin 40mg qhs. * Depression - Wellbutrin SR 150mg bid, Mirtazapine 7.5mg qhs, stable chronic senior care use, GDR not recommended. * Anxiety - Buspar 15mg bid, stable chronic senior care use, GDR not recommended. * Calcium deficiency - Calcium D 1 tablet daily. * Hypothyroidism - Levothyroxine 50mcg daily. * GERD - Pantoprazole 20mg qhs.
[2024-10-12] MEDS: Acetaminophen 500 MG Tablet 1000 MG PO (20:20)
[2024-10-12] MEDS: buPROPion (SR) 150 MG Tablet.SA PO (20:21)
[2024-10-12] MEDS: busPIRone 15 MG TABLET PO (20:21)
[2024-10-12] MEDS: Pantoprazole Sodium 20 MG Tablet PO (20:22)
[2024-10-12] MEDS: Atorvastatin Calcium 40 MG Tablet PO (20:22)
[2024-10-12] MEDS: Mirtazapine 15 MG Tablet 7.5 MG PO (20:22)
[2024-10-12] MEDS: Senna/Docusate Sodium 1 Tablet PO (20:27)
[2024-10-13] MEDS: Enoxaparin 40 MG/0.4 ML Syringe SC (05:52)
[2024-10-13] MEDS: Levothyroxine 50 MCG Tablet PO (05:52)
[2024-10-13 06:02] LABS: Absolute Lymphocyte Count 1.52 X10^3/uL (0.83-4.51); Basophil# 0.06 X10^3/uL; Basophil% 0.9 % (0-1); Eosinophil# 0.28 X10^3/uL; Eosinophils% 4.2 % (0-5); Hematocrit 42.4 % (37-47); Hemoglobin 13.6 g/dL (12.0-15.0); Lymphocyte # 1.52 X10^3/ul (0.83-4.51); Lymphocyte % 22.6 % (19-41); Mean Corp Hgb Conc 32.1 g/dL (32-36); Mean Corpuscular Hgb 31.9 pg (27.0-32.0); Mean Corpuscular Volume 99.3 fL (81-99); Mean Platelet Vol. 11.7 fl (6.2-12.0); Monocyte# 0.84 X10^3/uL; Monocyte% 12.5 % (0-10); NRBC Flagged by Analyzer 0 % (0-5); Neutrophil # 3.98 X10^3/uL (2.7-7.7); Neutrophil % 59.1 % (47-70); Platelet Count 254 K/mm3 (150-450); RBC Distribution Width CV 13.3 % (11.6-14.6); RBC Distribution Width SD 48.7 fl (35.1-43.9); Red Blood Count 4.27 M/mm3 (4.2-5.4); White Blood Count 6.7 K/mm3 (4.4-11.0)
[2024-10-13 06:38] LABS: Anion Gap 6 (5-15); BUN 24 mg/dL (7-18); BUN/Creat Ratio 28.7 RATIO (10-20); Calcium,Total 9.4 mg/dL (8.5-10.1); Chloride 112 mmol/L (98-107); Creatinine, Serum 0.84 mg/dL (0.55-1.02); EST Glomerular Filtration Rate 69 mL/min (>60); Est Glom Filt Rate - Afr Amer 84 mL/min (>60); Estimated Creatinine Clearance 37.73 ml/min; Glucose 102 mg/dL (74-106); Potassium 4.2 mmol/L (3.5-5.1); Sodium Level 145 mmol/L (136-145)
[2024-10-13] MEDS: buPROPion (SR) 150 MG Tablet.SA PO ×2 (07:59→20:09)
[2024-10-13] MEDS: Senna/Docusate Sodium 1 Tablet PO ×2 (07:59→20:10)
[2024-10-13] MEDS: amLODIPine 2.5 MG Tablet PO (07:59)
[2024-10-13] MEDS: busPIRone 15 MG TABLET PO ×2 (07:59→20:09)
[2024-10-13] MEDS: Lisinopril 5 MG Tablet PO (07:59)
[2024-10-13 08:00] VITALS: BP 147/84; PULSE 74; RESP 17; TEMP 36.9; O2SAT 96
[2024-10-13] MEDS: Aspirin E.C. 81 MG Tablet PO (08:00)
[2024-10-13] MEDS: Metoprolol(XL)Succ 100 MG Tablet PO (08:00)
[2024-10-13] MEDS: Tuberculin,Purif.prot.deriv. 50 TU/ML Vial 0.1 ML ID (10:23)
[2024-10-13] MEDS: Calcium Carb/Vitamin D 1 TABLET Tablet PO (12:29)
[2024-10-13] MEDS: Acetaminophen 500 MG Tablet 1000 MG PO ×2 (14:15→20:15)
--- NOTE | 2024-10-13 14:39 | CHAPLAIN ---
Type of Pastoral Visit _x__ Initial Visit ___ Follow-up Visit ___ On-call Visit ___ General Patient Visit ___ Spiritual Assessment ___ Family Conference ___ Bereavement ___ Rapid Response ___ Code Blue ___ Other (describe below) Pastoral Care Referral From _x__ Patient ___ Family ___ Nurse ___ Physician ___ Chinese Instructor ___ Acting Manager ___ Other (describe below) Sacrament/Intervention _x__ Active listening ___ Anointing ___ Sikh ___ Bereavement ___ Communion ___ Madyson exploration ___ _x__ Life review _x__ Prayer ___ Reconciliation ___ Sacrament of Sick ___ Supportive presence ___ Wedding ___ Other (describe below) Pastoral Comments patient is welcoming and reports on her gratitude for being in TCU for care and the people that make a difference; spouse was admitted to TCU in the past and had a good experience; spouse has now and the patient lives alone; reviewed with the patient how life has changed for her and how she is coping with the situation; pt has family support and a good attitude; pt expresses gratitude for a good life; pt shows optimism in her conversation and welcomes a prayer for further support
--- NOTE | 2024-10-13 16:07 | CASEMGMT ---
Social Work SW met with patient to complete initial assessment. Introduced self and role. Verified contacts. Patient confirmed code status as full code. Educated to On license of [facility] insurance with [employer] 10/19 and continued stay is not guaranteed with each review. Pt's goal is to return home alone. Pt has split-level and will need to be able to complete steps and live independently at home alone. SW will continue to follow for DC planning. Sandrita Chin DIRECTOR OF GRADUATE ADMISSIONS MONOTYPE SETTER
--- NOTE | 2024-10-13 16:37 | PCM.PN.DRR ---
Documented by User: Peggy Lynne 10/13/24 16:55 TCU RX Drug Regimen Review Subjective/Objective Subjective/Objective Subjective: TCU Admission. 79 YOF hospitalized for left reverse total shoulder arthroplasty 10/08/[address] Foley, postoperative course uncomplicated. Admitted to TCU with debility for strengthening and rehabilitation. Objective: Allergies codeine Allergy (Verified 07/29/24 13:41) swelling of face Current Medications Generic Name Dose Route Start Last Admin Trade Name Freq PRN Reason Stop Dose Admin Acetaminophen 1,000 mg 10/12/24 19:16 10/13/24 14:15 Acetaminophen 500 Mg Tablet PO 1,000 mg Q6H PRN PRN Administration Pain Score 1-5 Amlodipine Besylate 2.5 mg 10/13/24 10:00 10/13/24 07:59 Amlodipine 2.5 Mg Tablet PO 2.5 mg DAILY CARMELO Administration Protocol Aspirin 81 mg 10/13/24 08:00 10/13/24 08:00 Aspirin E.C. 81 Mg Tablet PO 81 mg BREAKFAST CARMELO Administration Atorvastatin Calcium 40 mg 10/12/24 22:00 10/12/24 20:22 Atorvastatin Calcium 40 Mg Tablet PO 40 mg QHS CARMELO Administration Bupropion HCl 150 mg 10/12/24 22:00 10/13/24 07:59 Bupropion (Sr) 150 Mg Tablet.Sa PO 150 mg BID CARMELO Administration Buspirone HCl 15 mg 10/12/24 22:00 10/13/24 07:59 Buspirone 15 Mg Tablet PO 15 mg BID CARMELO Administration COVID-19 Vaccine mRNA LNP-S (MOD) (PF) 50 mcg 10/14/24 14:00 Covid Vac 24-25 (12up)(Moderna)/Pf 50 Mcg/0.5 Ml Syringe IM 10/14/24 14:01 .ONCE ONE Calcium/Vitamin D 1 tablet 10/13/24 12:00 10/13/24 12:29 Calcium Carb/Vitamin D 1 Tablet Tablet PO 1 tablet LUNCH CARMELO Administration Enoxaparin Sodium 40 mg 10/13/24 06:00 10/13/24 05:52 Enoxaparin 40 Mg/0.4 Ml Syringe SC 40 mg DAILY@0600 CARMELO Administration Levothyroxine Sodium 50 mcg 10/13/24 06:00 10/13/24 05:52 Levothyroxine 50 Mcg Tablet PO 50 mcg DAILY@0600 CARMELO Administration Lisinopril 5 mg 10/13/24 10:00 10/13/24 07:59 Lisinopril 5 Mg Tablet PO 5 mg DAILY CARMELO Administration Protocol Magnesium Citrate 300 ml 10/12/24 19:16 Magnesium Citrate 300 Ml PO DAILY PRN Constipation Metoprolol Succinate 100 mg 10/13/24 10:00 10/13/24 08:00 Metoprolol(Xl)Succ 100 Mg Tablet PO 100 mg DAILY CARMELO Administration Protocol Mirtazapine 7.5 mg 10/12/24 22:00 10/12/24 20:22 Mirtazapine 15 Mg Tablet PO 7.5 mg QHS CARMELO Administration Oxycodone HCl 5 mg 10/12/24 19:17 Oxycodone 5 Mg Tablet PO Q4H PRN PRN pain (scale score 6-10) Pantoprazole Sodium 20 mg 10/12/24 22:00 10/12/24 20:22 Pantoprazole Sodium 20 Mg Tablet PO 20 mg QHS [facility] Administration Senna/Docusate Sodium 1 tablet 10/12/24 22:00 10/13/24 07:59 Senna/Docusate Sodium 1 Tablet PO 1 tablet BID CARMELO Administration Tuberculin PPD 0.1 ml 10/20/24 10:00 Tuberculin,Purif.Prot.Deriv. 50 Tu/Ml Vial ID 10/20/24 10:01 X1 ONE Problem List GERD (gastroesophageal reflux disease) (Acute) Anxiety (Acute) Depression (Acute) Low back pain (Acute) Coronary artery disease (Acute) Status post reverse total arthroplasty of left shoulder (Acute) Debility (Acute) Osteoporosis (Chronic) Essential hypertension (Chronic) Hypothyroidism (Acute) Vital Signs Temp Pulse Resp BP Pulse Ox O2 Del Method 98.5 F 74 17 147/84 H 96 Room Air 10/13/24 08:00 10/13/24 08:00 10/13/24 08:00 10/13/24 08:00 10/13/24 08:00 10/13/24 10:00 Oxygen Delivery Method Room Air Weight: 53.155 kg Body Mass Index (BMI) 24.5 Sodium 145 mmol/L (136-145) 10/13/24 05:19 Potassium 4.2 mmol/L (3.5-5.1) 10/13/24 05:19 Chloride 112 mmol/L (98-107) H 10/13/24 05:19 Carbon Dioxide 27.0 mmol/L (21.0-32.0) 10/13/24 05:19 Anion Gap 6 (5-15) 10/13/24 05:19 BUN 24 mg/dL (7-18) H 10/13/24 05:19 Creatinine 0.84 mg/dL (0.55-1.02) 10/13/24 05:19 Est GFR (MDRD) Af Amer 84 mL/min (>60) 10/13/24 05:19 Est GFR (MDRD) Non-Af 69 mL/min (>60) 10/13/24 05:19 BUN/Creatinine Ratio 28.7 RATIO (10-20) H 10/13/24 05:19 Glucose 102 mg/dL (74-106) 10/13/24 05:19 Assessment/Plan: 1. Pain: acetaminophen 1000mg PO Q6H PRN pain 1-5 and oxycodone 5mg PO Q4H PRN pain 6-10. Resident has had 2 doses of acetaminophen (pain scores of 2 in the arm and 6 in the shoulder) and no doses of oxycodone. Please continue to monitor for increased pain, PRN usage. 2. Bowel: senna/docusate 1T PO BID and magnesium citrate 300mL PO daily PRN constipation. Resident has not had any PRN doses. Last documented bowel movement was 10/12/24. Please continue to monitor for constipation and PRN usage. 3. DVT prophylaxis: enoxaparin 40mg SC daily. Please continue to monitor for S/S of bleeding/DVT, hemoglobin (last 13.6g/dL), platelets (last 254,000) and renal function (CrCl 37mL/min). 4. Hypertension/CAD: metoprolol succinate 100mg PO daily, lisinopril 5mg PO daily, amlodipine 2.5mg PO daily and aspirin 81mg PO daily. Please continue to monitor BP (last 147/84), HR (last 74), renal function, cough, potassium (last 4.2mmol/L), S/S of bleeding, and hemoglobin. 5. Hyperlipidemia: atorvastatin 40mg PO QHS. Please continue to monitor lipid panel (last 04/28/24), LFTs (last 07/29/24) and muscle pain. 6. Hypothyroidism: levothyroxine 50mcg PO daily. Please continue to monitor TSH (last 07/21/24) and S/S of hypo/hyperthyroidism. 7. GERD: pantoprazole 20mg PO QHS. Please continue to monitor for S/S of GERD and diarrhea (BEERs). 8. Calcium deficiency: calcium/vitamin D 1T PO daily. Please consider ordering a vitamin D level as the last is from 03/2023. Thanks. Please continue to monitor calcium (last 9.4mg/dL). Assessment/Plan for indications treated with psychotropic medications: 1. Depression: bupropion SR 150mg PO BID and mirtazapine 7.5mg PO QHS. Please see physician note regarding GDR. Please continue to monitor for suicidal ideation (black box warning), dizziness, drowsiness, insomnia, and sodium (last 145mmol/L). 2. Anxiety: buspirone 15mg PO BID. Please see physician note regarding GDR. Please continue to monitor for S/S of anxiety, dizziness, drowsiness. Medical chart and medication regimen reviewed. The following medication irregularities or issues were identified: 1. Calcium/vitamin D 1T PO daily. Please consider ordering a vitamin D level as the last is from 03/2023. Thanks. Date Date of Note: 10/13/24 Documented by User: Dr. Zeus Duke MD 10/13/24 17:15 TCU RX Drug Regimen Review Provider Comments Provider responsibility Provider Comments to Recommendations by Pharmacy Agree
[2024-10-13] MEDS: Mirtazapine 15 MG Tablet 7.5 MG PO (20:10)
[2024-10-13] MEDS: Atorvastatin Calcium 40 MG Tablet PO (20:10)
[2024-10-13] MEDS: Pantoprazole Sodium 20 MG Tablet PO (20:11)
[2024-10-13 22:45] LABS: Vitamin D,25 Hydroxy 44.8 ng/mL
[2024-10-14] MEDS: Enoxaparin 40 MG/0.4 ML Syringe SC (05:31)
[2024-10-14] MEDS: Levothyroxine 50 MCG Tablet PO (05:31)
[2024-10-14 08:47] VITALS: BP 117/71; PULSE 84; RESP 17; TEMP 36.1; O2SAT 93
[2024-10-14] MEDS: Aspirin E.C. 81 MG Tablet PO (08:50)
[2024-10-14] MEDS: busPIRone 15 MG TABLET PO ×2 (08:50→21:33)
[2024-10-14] MEDS: amLODIPine 2.5 MG Tablet PO (08:50)
[2024-10-14 08:51] VITALS: PULSE 84
[2024-10-14] MEDS: Metoprolol(XL)Succ 100 MG Tablet PO (08:51)
[2024-10-14] MEDS: buPROPion (SR) 150 MG Tablet.SA PO ×2 (08:52→21:33)
[2024-10-14] MEDS: Lisinopril 5 MG Tablet PO (08:52)
[2024-10-14] MEDS: Acetaminophen 500 MG Tablet 1000 MG PO ×2 (08:54→21:32)
--- NOTE | 2024-10-14 10:14 | PCA ---
Patient continues to ring and take herself out of the bathroom after being told she needs to wait for staff to help her back to her chair or bed patient will also not use cane
--- NOTE | 2024-10-14 11:30 | NURSING ---
Plant Operations Coordinator Note; Activity Asset: Complete Destiney is independent in her choice of daily activities. Destiney has recently lost her and prefers to stay in her room and do in room activities over group. Her family will visits with her, she has her smartphone she uses for music to help relax her along with tv and reading. Staff will remind her of group/ in room activities and respect her right to say no.
[2024-10-14] MEDS: Calcium Carb/Vitamin D 1 TABLET Tablet PO (12:03)
[2024-10-14] MEDS: COVID VAC 24-25 (12UP)(MODERNA)/PF 50 MCG/0.5 ML SYRINGE IM (18:23)
[2024-10-14] MEDS: Senna/Docusate Sodium 1 Tablet PO (21:32)
[2024-10-14] MEDS: Pantoprazole Sodium 20 MG Tablet PO (21:32)
[2024-10-14] MEDS: Mirtazapine 15 MG Tablet 7.5 MG PO (21:32)
[2024-10-14] MEDS: Atorvastatin Calcium 40 MG Tablet PO (21:33)
[2024-10-15] MEDS: Levothyroxine 50 MCG Tablet PO (06:37)
[2024-10-15] MEDS: Enoxaparin 40 MG/0.4 ML Syringe SC (06:37)
[2024-10-15 06:49] VITALS: RESP 15
[2024-10-15 08:56] VITALS: BP 130/87; PULSE 83; RESP 16; TEMP 36.4; O2SAT 96
[2024-10-15] MEDS: amLODIPine 2.5 MG Tablet PO (09:01)
[2024-10-15] MEDS: Aspirin E.C. 81 MG Tablet PO (09:01)
[2024-10-15] MEDS: buPROPion (SR) 150 MG Tablet.SA PO ×2 (09:01→20:35)
[2024-10-15 09:02] VITALS: PULSE 83
[2024-10-15] MEDS: busPIRone 15 MG TABLET PO ×2 (09:02→20:34)
[2024-10-15] MEDS: Lisinopril 5 MG Tablet PO (09:02)
[2024-10-15] MEDS: Metoprolol(XL)Succ 100 MG Tablet PO (09:02)
[2024-10-15] MEDS: Acetaminophen 500 MG Tablet 1000 MG PO ×2 (09:03→18:57)
[2024-10-15] MEDS: Calcium Carb/Vitamin D 1 TABLET Tablet PO (12:42)
[2024-10-15] MEDS: Mirtazapine 15 MG Tablet 7.5 MG PO (20:34)
[2024-10-15] MEDS: Pantoprazole Sodium 20 MG Tablet PO (20:34)
[2024-10-15] MEDS: Atorvastatin Calcium 40 MG Tablet PO (20:34)
[2024-10-16] MEDS: Enoxaparin 40 MG/0.4 ML Syringe SC (06:00)
[2024-10-16] MEDS: Levothyroxine 50 MCG Tablet PO (06:00)
[2024-10-16 08:21] VITALS: BP 138/99; PULSE 63; RESP 16; TEMP 37.3; O2SAT 93
[2024-10-16] MEDS: Acetaminophen 500 MG Tablet 1000 MG PO ×2 (08:25→19:58)
[2024-10-16] MEDS: Aspirin E.C. 81 MG Tablet PO (08:25)
[2024-10-16 08:26] VITALS: PULSE 63
[2024-10-16] MEDS: busPIRone 15 MG TABLET PO ×2 (08:26→19:55)
[2024-10-16] MEDS: amLODIPine 2.5 MG Tablet PO (08:26)
[2024-10-16] MEDS: Metoprolol(XL)Succ 100 MG Tablet PO (08:26)
[2024-10-16] MEDS: buPROPion (SR) 150 MG Tablet.SA PO ×2 (08:26→19:57)
[2024-10-16] MEDS: Lisinopril 5 MG Tablet PO (08:26)
--- NOTE | 2024-10-16 10:42 | CASEMGMT ---
Social Work SW completed BIMS () and PHQ-2 () for MDS assessment. Pt requesting to DC home. SW spoke with treating P D DRIVER/RADHA, and pt is adlib, mod I. Pt just needs assistance with donning/doffing sling, which she reports she takes off while she showers. Pt noted her dtr will be present when she showers and can assist with the sling. SW offered to set DC date. pt stated her dtr will be visiting shortly and will converse with DC dates and notify this worker. SW offered HHC vs OP therapy. Pt prefers HHC. SW provided list of skilled HHC agencies including quality and resource data via [employer]. SW will continue to follow. BLAYNE Burr
--- NOTE | 2024-10-16 11:28 | CASEMGMT ---
Social Work SW spoke with pt and dtr at bedside. Pt prefers DC 10/19. Dtr in agreement. pt provided HHC choices: [facility]. SW to place referral. Pt denied DME needs. Dtr to transport home. SW sent referral to [facility] PT/OT. Plan: DC home alone 10/19, [facility] PT/OT Sandrita Chin ,BLAYNE HANDLEYW
[2024-10-16] MEDS: Calcium Carb/Vitamin D 1 TABLET Tablet PO (11:50)
--- NOTE | 2024-10-16 14:34 | DS.PCM_ITS ---
Providers Date of Admission: 10/12/24 Primary Care Physician: Dr. Richard Amin, DO Reason For Visit: LT REVERSE TOTAL SHOULDER Diagnosis Discharge Diagnosis (1) Debility: Status: Acute Code(s): R53.81 - Other malaise (2) Status post reverse total arthroplasty of left shoulder: Status: Acute Code(s): Z96.612 - Presence of left artificial shoulder joint (3) Coronary artery disease: Status: Acute Code(s): I25.10 - Atherosclerotic heart disease of [place] coronary artery without angina pectoris (4) Essential hypertension: Status: Chronic Code(s): I10 - Essential (primary) hypertension (5) Hypothyroidism: Status: Acute Code(s): E03.9 - Hypothyroidism, unspecified (6) Low back pain: Status: Acute Code(s): M54.50 - Low back pain, unspecified (7) Depression: Status: Acute Code(s): F32.9 - Major depressive disorder, single episode, unspecified (8) Anxiety: Status: Acute Code(s): F41.9 - Anxiety disorder, unspecified (9) Osteoporosis: Status: Chronic Code(s): M81.0 - Age-related osteoporosis without current pathological fracture Qualifiers: Osteoporosis type: age-related Presence of current pathological fracture: without current pathological fracture Qualified Code(s): M81.0 - Age- related osteoporosis without current pathological fracture (10) GERD (gastroesophageal reflux disease): Status: Acute Code(s): K21.9 - Gastro-esophageal reflux disease without esophagitis Plan 79 year old female with below past medical history hospitalized for left reverse total shoulder arthroplasty 10/08/[address] Foley, postoperative course uncomplicated, admitted to TCU with debility, here for rehabilitation, strengthening, prior to discharge home alone. * Debility - PT/OT. * Pain - Tylenol 1000mg q6 prn pain (1-5), Oxycodone 5mg q4 prn pain (6-10). * Bowel - senna/colace 1 tablet bid, Magnesium citrate 300mL daily prn. * Adult immunization - Administer pneumonia vaccine, covid vaccine, flu vaccine as appropriate. * DVT prophylaxis - Lovenox 40mg sc daily. * Hypertension - Metoprolol succinate 100mg daily, Lisinopril 5mg daily, Amlodipine 2.5mg daily. * Coronary Artery Disease - Metoprolol succinate 100mg daily, Lisinopril 5mg daily, Aspirin 81mg daily. * Hyperlipidemia - Atorvastatin 40mg qhs. 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 * Calcium deficiency - Calcium D 1 tablet daily. * Hypothyroidism - Levothyroxine 50mcg daily. * GERD - Pantoprazole 20mg qhs. Medications at Discharge Home Medications bupropion HCl 150 mg tablet,12 hr sustained-release 150 mg PO BID anxiety 12/28/13 omeprazole 20 mg capsule,delayed release 20 mg PO QHS acid reflux 12/28/13 atorvastatin 40 mg tablet 40 mg PO QHS cholesterol #90 tabs 01/26/21 calcium 600 mg (as carbonate)-vitamin D3 10 mcg (400 unit) tablet 1 tab PO DAILY supple 02/14/21 denosumab 60 mg/mL subcutaneous syringe (Prolia) 60 mg subcut [id number] bone health #1 mL 04/19/22 buspirone 15 mg tablet 15 mg PO BID MENTAL HEALTH 05/24/22 levothyroxine 50 mcg tablet 50 mcg PO DAILY synthroid #90 tabs 12/19/23 aspirin 81 mg tablet,delayed release 81 mg PO DAILY heart health 04/13/24 mirtazapine 7.5 mg tablet 7.5 mg PO QHS sleep 04/13/24 amlodipine 2.5 mg tablet 2.5 mg PO QDAY BP #90 tabs 07/29/24 lisinopril 5 mg tablet 5 mg PO QDAY BP #90 tabs 07/29/24 metoprolol succinate 100 mg tablet,extended release 24 hr 100 mg PO QDAY BP #90 tabs 07/29/24 acetaminophen 500 mg tablet 1,000 mg (2 x 500 mg) PO Q6H PRN PRN Pain Score 1-5 #0 tabs 10/16/24 Hospital Course Operations - (See below.) Procedures None Summary of Care Provided Minutes Spent on Discharge: 35 Hospital Course: 79 year old female with below past medical history hospitalized for left reverse total shoulder arthroplasty 10/08/[address] Foley, postoperative course uncomplicated, admitted to TCU with debility, here for rehabilitation, strengthening, prior to discharge home alone. Plan: DC home alone 10/19, [facility] PT/OT Physical Exam Const alert General Appearance: cooperative HEENT normocephalic Eyes PERRL and EOMs intact bilaterally Neck supple, no JVD and no carotid bruits Resp normal respiratory effort, normal air movement and clear to auscultation bilaterally Cardio regular rate and regular rhythm GI normal to inspection, nondistended, normoactive bowel sounds, non-tender and non-distended Extremity normal capillary refill Extremity Narrative: Left upper extremity sling/swathe. General Extremity: Negative for edema Skin no rashes or lesions noted General Skin Exam: no breakdown Psych affect normal Appearance: appropriate Weight / BMI Weight Weight: 53.155 kg Body Mass Index (BMI) 24.5 ABG / Lab / Microbiology Data 10/13/24 05:19 10/13/24 05:19 D/C Instructions Discharge Diet: No restrictions Discharge Activity: Return to Normal Activity, May Shower and Use Walker Weight Bearing Status: No weight bearing (Left upper extremity.) Call your doctor if you observe: Fever of 101 or Higher, Inability to urinate, Inability to have a bowel movement, Shortness of breath, Dizziness, Fainting spells, Swelling in the ankles, Chest pain and Uncontrolled pain DC O2, CPAP, BIPAP Needs Home O2 Discharge instructions: No Additional Instructions: Plan: DC home alone 10/19, [facility] PT/OT Please Follow Up With: Dr Kolby Foley When: As scheduled. Meaningful Use Info Meaningful Use Meaningful Use Diagnoses (Choose all that apply): None applicable Ischemic Stroke Statin Dosing Therapy Reference: STATIN DOSE THERAPY REFERENCE: * Patients > 75 years receive moderate or high dose statin therapy. * Patients 75 years or YOUNGER should receive HIGH intensity statin dose unless contraindicated. You will be required to document reason for non-treatment if statin daily dose does not meet guidelines. HIGH DOSE STATIN THERAPY DAILY Atorvastatin > than or = to 40 mg Rosuvastatin > than or = to 20 mg Amlodipine + Atorvastatin > than or = to 2.5/40 mg Ezetimibe + Simvastatin 10/80 mg Simvastatin 80mg Discharge Plan Admission Admit Date/Time: 10/12/24 17:28 Primary Reason for Your Visit: Debility. Attending Provider: Zeus [facility] Primary Care Provider: Richard Amin Instructions Additional Instructions / Restrictions: Plan: DC home alone 10/19, [facility] PT/OT Discharge Orders/Prescriptions Prescriptions: New acetaminophen 500 mg Tablet 1,000 mg PO Q6H PRN PRN (Reason: Pain Score 1-5) Qty: 0 0RF Continued calcium carbonate-vitamin D3 600 mg(1,500mg) -400 unit tablet 1 tab PO DAILY mirtazapine 7.5 mg tablet 7.5 mg PO QHS aspirin 81 mg tablet,delayed release (DR/EC) 81 mg PO DAILY amlodipine 2.5 mg tablet 2.5 mg PO QDAY Qty: 90 3RF metoprolol succinate 100 mg tablet extended release 24 hr 100 mg PO QDAY Qty: 90 3RF lisinopril 5 mg tablet 5 mg PO QDAY Qty: 90 3RF bupropion HCl 150 MG tablet extended release 12 hr 150 mg PO BID omeprazole 20 MG capsule 20 mg PO QHS atorvastatin 40 mg Tablet 40 mg PO QHS Qty: 90 0RF buspirone 15 mg tablet 15 mg PO BID Prolia 60 mg/mL syringe 60 mg subcut [id number] Qty: 1 1RF levothyroxine 50 mcg tablet 50 mcg PO DAILY Qty: 90 3RF Discontinued nabumetone 750 mg tablet 750 mg PO BID clobetasol 0.05 % solution 1 applic topical PRN clobetasol 0.05 % shampoo 1 applic topical PRN oxycodone-acetaminophen [Percocet] 5-325 mg tablet 1 tab PO Q6H PRN (Reason: pain (scale score 6-10)) hydrocodone-acetaminophen 5-325 mg tablet 1 tab PO Q6H PRN (Reason: Pain) Referrals / Follow Up: Richard Amin DO [Primary Care Provider] - Disposition Disposition (needs filled in before D/C Order can be placed): Home Health Service
[2024-10-16] MEDS: Pantoprazole Sodium 20 MG Tablet PO (19:56)
[2024-10-16] MEDS: Mirtazapine 15 MG Tablet 7.5 MG PO (19:57)
[2024-10-16] MEDS: Atorvastatin Calcium 40 MG Tablet PO (19:59)
[2024-10-17] MEDS: Enoxaparin 40 MG/0.4 ML Syringe SC (05:47)
[2024-10-17] MEDS: Levothyroxine 50 MCG Tablet PO (05:47)
[2024-10-17 08:09] VITALS: PULSE 87
[2024-10-17] MEDS: Lisinopril 5 MG Tablet PO (08:09)
[2024-10-17] MEDS: Metoprolol(XL)Succ 100 MG Tablet PO (08:09)
[2024-10-17] MEDS: busPIRone 15 MG TABLET PO ×2 (08:09→20:33)
[2024-10-17] MEDS: buPROPion (SR) 150 MG Tablet.SA PO ×2 (08:09→20:32)
[2024-10-17] MEDS: amLODIPine 2.5 MG Tablet PO (08:09)
[2024-10-17] MEDS: Aspirin E.C. 81 MG Tablet PO (08:09)
[2024-10-17] MEDS: Acetaminophen 500 MG Tablet 1000 MG PO ×2 (08:13→20:34)
[2024-10-17 10:30] VITALS: BP 134/91; PULSE 87; RESP 18; TEMP 36.6; O2SAT 98
[2024-10-17] MEDS: Calcium Carb/Vitamin D 1 TABLET Tablet PO (11:33)
[2024-10-17] MEDS: Pantoprazole Sodium 20 MG Tablet PO (20:32)
[2024-10-17] MEDS: Atorvastatin Calcium 40 MG Tablet PO (20:33)
[2024-10-17] MEDS: Mirtazapine 15 MG Tablet 7.5 MG PO (20:33)
[2024-10-18] MEDS: Levothyroxine 50 MCG Tablet PO (05:36)
[2024-10-18] MEDS: Enoxaparin 40 MG/0.4 ML Syringe SC (05:37)
[2024-10-18 08:10] VITALS: PULSE 81
[2024-10-18] MEDS: buPROPion (SR) 150 MG Tablet.SA PO ×2 (08:10→19:59)
[2024-10-18] MEDS: busPIRone 15 MG TABLET PO ×2 (08:10→19:59)
[2024-10-18] MEDS: Metoprolol(XL)Succ 100 MG Tablet PO (08:10)
[2024-10-18] MEDS: Aspirin E.C. 81 MG Tablet PO (08:10)
[2024-10-18] MEDS: amLODIPine 2.5 MG Tablet PO (08:10)
[2024-10-18] MEDS: Lisinopril 5 MG Tablet PO (08:10)
[2024-10-18] MEDS: Senna/Docusate Sodium 1 Tablet PO (08:10)
[2024-10-18 09:52] VITALS: BP 135/83; PULSE 81; RESP 18; TEMP 36.7; O2SAT 98
[2024-10-18] MEDS: Calcium Carb/Vitamin D 1 TABLET Tablet PO (11:55)
[2024-10-18] MEDS: Acetaminophen 500 MG Tablet 1000 MG PO ×2 (14:08→19:59)
[2024-10-18] MEDS: Atorvastatin Calcium 40 MG Tablet PO (19:58)
[2024-10-18] MEDS: Pantoprazole Sodium 20 MG Tablet PO (19:59)
[2024-10-18] MEDS: Mirtazapine 15 MG Tablet 7.5 MG PO (19:59)
[2024-10-19] MEDS: Enoxaparin 40 MG/0.4 ML Syringe SC (05:44)
[2024-10-19] MEDS: Levothyroxine 50 MCG Tablet PO (05:44)
[2024-10-19 07:58] VITALS: BP 149/90; PULSE 81
[2024-10-19] MEDS: Lisinopril 5 MG Tablet PO (07:58)
[2024-10-19] MEDS: Metoprolol(XL)Succ 100 MG Tablet PO (07:58)
[2024-10-19] MEDS: buPROPion (SR) 150 MG Tablet.SA PO (07:58)
[2024-10-19] MEDS: amLODIPine 2.5 MG Tablet PO (07:58)
[2024-10-19] MEDS: Aspirin E.C. 81 MG Tablet PO (07:58)
[2024-10-19] MEDS: busPIRone 15 MG TABLET PO (07:58)
[2024-10-19] MEDS: Acetaminophen 500 MG Tablet 1000 MG PO (08:02)
--- NOTE | 2024-10-19 08:48 | NURSING ---
Merchandise Director Note; MDS for 10/19/2024 Complete
--- NOTE | 2024-10-19 10:56 | NURSING ---
discharged home with daughter. discharged instruction, medications and appointments reviewed with pt and family. denies question or concerns
[2024-10-19 10:57] VITALS: BP 140/90; PULSE 81; RESP 16; TEMP 37.2; O2SAT 98
== END 2024-10-19 10:59 | disposition home health service (06) | DRG 561 ==
PROVIDERS: Admitting Provider Family Medicine Geriatric Medicine; PCP Family Medicine; Referring Provider Family Medicine Geriatric Medicine; Visit Provider Family Medicine Geriatric Medicine
DX: Z47.1 Aftercare following joint replacement surgery (principal); E03.9 Hypothyroidism, unspecified; I10 Essential (primary) hypertension; F32.9 Major depressive disorder, single episode, unspecified; I25.10 Atherosclerotic heart disease of native coronary artery without angina pectoris; E78.00 Pure hypercholesterolemia, unspecified; F41.9 Anxiety disorder, unspecified; K21.9 Gastro-esophageal reflux disease without esophagitis; E55.9 Vitamin D deficiency, unspecified; Z95.5 Presence of coronary angioplasty implant and graft; Z79.82 Long term (current) use of aspirin; M81.0 Age-related osteoporosis without current pathological fracture; Z96.612 Presence of left artificial shoulder joint; Z79.899 Other long term (current) drug therapy; Z79.890 Hormone replacement therapy; Z23 Encounter for immunization
CPT/HCPCS: 36415; 80048; 82306; 85025; 90480; 91322; 97110; 97116; 97162; 97166; 97530; 97535; 97802

== ENCOUNTER → 2024-12-18 | Outpatient (CLI) | payer MEDICARE, SELFPAY ==
--- NOTE | 2024-12-18 11:28 | RAD_ITS ---
EXAM: XR Cervical Spine, 4 or 5 Views CLINICAL INDICATION: CERVICAL DEGENERATIVE DISC DISEASE TECHNIQUE: Frontal, lateral and bilateral oblique views of the cervical spine. COMPARISON: No relevant prior studies available. FINDINGS: VERTEBRAE: Mild reversal of cervical spine lordosis. Moderate endplate degenerative changes and disc disease of C3-C7. Anterior spondylolisthesis of C4 on C5 by 3 mm without significant change during flexion or extension. No acute fracture. DISC SPACES: No acute findings. No significant narrowing. SOFT TISSUES: Unremarkable. RAD/Cerv Spine Obl/Flex/Ext Comp IMPRESSION: 1. Anterior spondylolisthesis of C4 on C5 by 3 mm without significant change d uring flexion or extension. 2. Degenerative changes as above. Reading Location: [facility]
== END | disposition home or self-care (01) ==
LOC: MTRAD 11:26
PROVIDERS: PCP Family Medicine; Referring Provider Clinical Nurse Specialist Adult Health; Visit Provider Clinical Nurse Specialist Adult Health
DX: M50.30 Other cervical disc degeneration, unspecified cervical region (principal)
CPT/HCPCS: 72052

== ENCOUNTER → 2025-02-10 | Outpatient (CLI) | payer MEDICARE, SELFPAY ==
[2025-02-10 16:02] LABS: Erythrocyte Sedimentation Rate 3 mm/hr (0-30)
[2025-02-10 16:44] LABS: AST(SGOT) 28 U/L (<=31); Alanine Aminotransfer ALT/SGPT 19 U/L (<=34); Albumin, Serum 4.3 g/dL (3.4-4.8); Alkaline Phosphatase 82 U/L (35-104); Bilirubin, Direct 0.17 mg/dL (0.00-0.30); Globulin 2.7 g/dL (2.2-4.2); Total Bilirubin 0.39 mg/dL (0.00-1.30); Vitamin B12 372 pg/mL (180-914)
== END | disposition home or self-care (01) ==
LOC: MTLAB 11:28
PROVIDERS: PCP Family Medicine; Referring Provider Family Medicine; Visit Provider Family Medicine
DX: I10 Essential (primary) hypertension (principal); G62.9 Polyneuropathy, unspecified
CPT/HCPCS: 36415; 80076; 82607; 82746; 84439; 84443; 85652

== ENCOUNTER → 2025-08-04 | Outpatient (CLI) | payer MEDICARE, SELFPAY ==
--- NOTE | 2025-08-04 12:48 | RAD_ITS ---
PROCEDURE: L/S SPINE MIN 4 VIEWS 08/04/2025 REASON FOR EXAM: LUMBAR DDD TECHNIQUE: Procedure Code: [id number] Modality: DX Procedure: L/S SPINE MIN 4 VIEWS COMPARISON: None FINDINGS: Spinal rods are noted throughout the lumbar spine from approximately T12 through L5. Bones are osteopenic. There is dextroconvex curvature of the lumbar spine and severe degenerative disc space narrowing at T12-L1 and at L4-L5. There is grade 1 anterolisthesis of L4 on L5 and grade 2 anterolisthesis of L5 on S1. Minimal retrolisthesis of L3 on L4. An electronic device, potentially a spinal stimulator, overlies the right buttock region. The sacroiliac joints are intact. The hip joints are severely degenerated/narrowed bilaterally. No acute bony abnormality. There is a moderate amount of rectal stool present. Atherosclerotic aortic calcifications are noted anterior to the lumbar spine. There are calcifications overlying the renal shadows bilaterally which could reflect renal calculi. RAD/L/S Spine Min 4 Views IMPRESSION: Degenerative changes and alignment abnormalities as above. There is grade 2 sp ondylolisthesis at L5-S1. No definite acute fracture. Additional findings as above Reading Location: [facility]
== END | disposition home or self-care (01) ==
LOC: MTRAD 12:46
PROVIDERS: PCP Family Medicine; Referring Provider Clinical Nurse Specialist Adult Health; Visit Provider Clinical Nurse Specialist Adult Health
DX: M51.369 Other intervertebral disc degeneration, lumbar region without mention of lumbar back pain or lower extremity pain (principal)
CPT/HCPCS: 72110